=== PATIENT | female | born 1965 | race Caucasian/White ===

== ENCOUNTER → 2022-03-30 | Outpatient (CLI) | payer BC, SELFPAY ==
[2022-03-30 15:00] LABS: Erythrocyte Sedimentation Rate 20 mm/hr (0-30)
--- NOTE | 2022-03-30 15:00 | RAD_ITS ---
INDICATION: ORGAN INVOLVEMENT RHEUMATOID ARTHRITIS EXAMINATION/TECHNIQUE: X-RAY - XR Chest 2 Views COMPARISON: None. FINDINGS: LINES/DEVICES: None. LUNGS: No consolidation, edema or effusion. No pneumothorax. MEDIASTINUM AND CARDIOVASCULAR STRUCTURES: Cardiac silhouette not enlarged. Central airways and mediastinal contour are unremarkable. BONES AND SOFT TISSUES: Unremarkable. RAD/Chest PA and Lateral IMPRESSION: No radiographic evidence of acute cardiopulmonary disease. Electronically Signed: Maxim Diaz DO at 23:52 EST Reading Location ID and State: [facility] / [place] Tel [phone], Service support ,
[2022-03-30 15:02] LABS: Absolute Lymphocyte Count 2.79 X10^3/uL (0.83-4.51); Absolute Neutrophil Count 6.2 X10^3/uL (2.0-7.7); Basophil# 0.07 X10^3/uL; Basophil% 0.7 % (0-1); Eosinophil# 0.08 X10^3/uL; Eosinophils% 0.8 % (0-5); Lymphocyte # 2.79 X10^3/ul (0.83-4.51); Lymphocyte % 28.4 % (19-41); Mean Corp Hgb Conc 33.3 g/dL (32-36); Mean Corpuscular Hgb 30.5 pg (27.0-32.0); Mean Corpuscular Volume 91.6 fL (81-99); Mean Platelet Vol. 10.7 fl (6.2-12.0); Monocyte# 0.65 X10^3/uL; Monocyte% 6.6 % (0-10); NRBC Flagged by Analyzer 0 % (0-5); Neutrophil # 6.22 X10^3/uL (2.7-7.7); Neutrophil % 63.3 % (47-70); Platelet Count 317 K/mm3 (150-450); RBC Distribution Width CV 11.9 % (11.6-14.6); Red Blood Count 4.91 M/mm3 (4.2-5.4); White Blood Count 9.8 K/mm3 (4.4-11.0)
[2022-03-30 15:23] LABS: AST(SGOT) 22 U/L (15-37); Alanine Aminotransfer ALT/SGPT 29 U/L (13-56); Albumin, Serum 3.8 g/dL (3.2-5.0); Alkaline Phosphatase 105 U/L (45-117); Anion Gap 7 (5-15); BUN 9 mg/dL (7-18); BUN/Creat Ratio 9.6 RATIO (10-20); CRP < 2.90 mg/L (0.0-3.0); Chloride 109 mmol/L (98-107); Creatinine, Serum 0.94 mg/dL (0.55-1.02); EST Glomerular Filtration Rate 66 mL/min (>60); Est Glom Filt Rate - Afr Amer 80 mL/min (>60); Globulin 3.9 g/dL (2.2-4.2); Glucose 124 mg/dL (74-106); Potassium 4.2 mmol/L (3.5-5.1); Protein, Total 7.7 g/dL (6.4-8.2); Sodium Level 143 mmol/L (136-145)
[2022-03-30 15:35] LABS: Prothrombin Time (Protime)PT. 12.9 SECONDS (11.7-14.9)
[2022-03-30 15:36] LABS: Partial Thromboplast Time 26.8 Seconds (24.1-36.2)
[2022-03-30 15:45] LABS: Protein, Urine (Random) 7.8 mg/dL (<11.9); Protein:Creat Ratio 84 mg/g CRE (0-200)
[2022-03-30 15:51] LABS: Glucose, Dipstick Normal (Normal); Ketone-Dipstick Negative (Negative); Leukocyte Esterase-Dipstick 25 /ul (Negative); Nitrite-Dipstick Negative (Negative); Occult Blood-Urine 10 /ul (Negative); Protein-Dipstick Negative (Negative); Specific Gravity, Urine 1.015 (1.002-1.030); Urine Bilirubin Dipstick Negative (Negative); Urine Urobilinogen Normal (Normal)
[2022-03-30 15:53] LABS: Color, Urine Yellow (Yellow); Urine Clarity Clear (Clear)
[2022-03-30 16:38] LABS: Hepatitis B Surface Antibody Reactive; Hepatitis B Surface Antigen Non-Reactive (Nonreactive); Hepatitis C Antibody Non-Reactive (Nonreactive)
[2022-04-01 19:07] LABS: Dilute Prothrombin Time (dPT) 35.5 sec (0.0-47.6); Dilute Russell Viper Venom 40.4 sec (0.0-47.0); Hexagonal Phase Phospholipid 4 sec (0-11); QNTFERON TB Mitogen Value > 10.00 IU/mL (.); QNTFERON TB Nil Value 0.04 IU/mL (.); QNTFERON TB1+ Ag Value 0.06 IU/mL (.); QNTFERON TB2+ Ag Value 0.06 IU/mL (.); dPT Confirm Ratio 1.01 Ratio (0.00-1.34)
[2022-04-01 19:21] LABS: Interpretation Comment: (.); PTT-LA 31.2 sec (0.0-43.5); QNTIFERON TB Positive Criteria Negative (Negative)
== END | disposition home or self-care (01) ==
PROVIDERS: PCP Student in an Organized Health Care Education/Training Program; Referring Provider Internal Medicine Rheumatology; Visit Provider Internal Medicine Rheumatology
DX: M05.79 Rheumatoid arthritis with rheumatoid factor of multiple sites without organ or systems involvement (principal); R76.8 Other specified abnormal immunological findings in serum
CPT/HCPCS: 36415; 71046; 80053; 81002; 82570; 84156; 85025; 85598; 85610; 85652; 85730; 86140; 86480; 86706; 86803; 87340

== ENCOUNTER → 2022-08-04 | Outpatient (CLI) | payer BC, SELFPAY ==
[2022-08-04 17:10] LABS: Absolute Lymphocyte Count 2.08 X10^3/uL (0.83-4.51); Absolute Neutrophil Count 5.9 X10^3/uL (2.0-7.7); Basophil# 0.08 X10^3/uL; Basophil% 0.9 % (0-1); Eosinophil# 0.11 X10^3/uL; Eosinophils% 1.3 % (0-5); Hematocrit 45.2 % (37-47); Hemoglobin 14.9 g/dL (12.0-15.0); Lymphocyte # 2.08 X10^3/ul (0.83-4.51); Lymphocyte % 23.6 % (19-41); Mean Corpuscular Hgb 31.7 pg (27.0-32.0); Mean Corpuscular Volume 96.2 fL (81-99); Mean Platelet Vol. 10.4 fl (6.2-12.0); Monocyte# 0.64 X10^3/uL; Monocyte% 7.3 % (0-10); NRBC Flagged by Analyzer 0 % (0-5); Neutrophil # 5.88 X10^3/uL (2.7-7.7); Neutrophil % 66.8 % (47-70); Platelet Count 471 K/mm3 (150-450); RBC Distribution Width CV 13.6 % (11.6-14.6); White Blood Count 8.8 K/mm3 (4.4-11.0)
[2022-08-04 17:43] LABS: ALB/GLOB Ratio 0.8 RATIO (0.9-2.4); AST(SGOT) 29 U/L (15-37); Alanine Aminotransfer ALT/SGPT 31 U/L (13-56); Albumin, Serum 3.4 g/dL (3.2-5.0); Alkaline Phosphatase 118 U/L (45-117); Anion Gap 6 (5-15); BUN 6 mg/dL (7-18); BUN/Creat Ratio 7.5 RATIO (10-20); Calcium,Total 9.4 mg/dL (8.5-10.1); Chloride 110 mmol/L (98-107); Cholesterol 134 mg/dL (200); EST Glomerular Filtration Rate 79 mL/min (>60); Est Glom Filt Rate - Afr Amer 96 mL/min (>60); Globulin 4.1 g/dL (2.2-4.2); Glucose 92 mg/dL (74-106); High Density Lipoprotein 48 mg/dL; Potassium 3.6 mmol/L (3.5-5.1); Protein, Total 7.5 g/dL (6.4-8.2); Sodium Level 143 mmol/L (136-145); Triglycerides 183 mg/dL; Very Low Density Lipoprotein 37 mg/dL (5-40)
[2022-08-04 17:48] LABS: Vitamin D,25 Hydroxy 41.9 ng/mL
== END | disposition home or self-care (01) ==
LOC: LAB 15:47
PROVIDERS: PCP Family Medicine Geriatric Medicine; Referring Provider Family Medicine Geriatric Medicine; Visit Provider Family Medicine Geriatric Medicine
DX: E78.5 Hyperlipidemia, unspecified (principal); M06.9 Rheumatoid arthritis, unspecified
CPT/HCPCS: 36415; 80053; 80061; 82306; 84443; 85025

== ENCOUNTER 2022-08-12 15:50 | Observation (INO) | payer BC, SELFPAY ==
--- NOTE | 2022-08-12 15:49 | CT_ITS ---
STUDY: CT ABDOMEN AND PELVIS WITHOUT CONTRAST REASON FOR EXAM: Female, 57 years old. NAUSEA/VOMITING. URETER STENT PLACED 07/25/22 RADIATION DOSAGE (If Supplied By Facility): CTDIvol = ( 8.06 ) mGy, DLP = ( 396.84 ) mGycm TECHNIQUE: Transaxial images were obtained from the dome of the diaphragm to the symphysis pubis without oral contrast, and without intravenous contrast. Sagittal and coronal images were reconstructed. Individualized dose optimization techniques were used for this CT. COMPARISON: None. FINDINGS: The visualized lung bases are unremarkable. The visualized portions of the heart are within normal limits. There is decreased attenuation of the liver consistent with steatosis. Marked hepatomegaly. Normal gallbladder and extrahepatic biliary system. Normal spleen. Normal pancreas. Normal bilateral adrenal glands. Normal right kidney. Left kidney has a ureteral stent in the left renal pelvis extending down to the bladder, satisfactory positioning. No definite stones are seen along the course of the stent. Currently there are nonobstructing stones in the left lower pole measuring as much as 9 mm. No hydronephrosis. Normal visualized stomach. Normal small intestine. Normal colon. The appendix is visualized and appears normal. Normal abdominal aorta. Normal inferior vena cava. Normal retroperitoneum. Normal urinary bladder. There is absence of the uterus consistent with a prior hysterectomy. Normal abdominal wall. Normal osseous structures. CT/Abdomen/Pelvis without Cont IMPRESSION: Satisfactory positioning of left ureteral stent. No hydronephrosis. Currently nonobstructing stones are seen in the lower pole left kidney. Fatty liver with marked hepatomegaly. Electronically Signed: Adebayo Roblero MD at 16:48 EDT ,
[2022-08-12 16:22] VITALS: BMI 28.8
[2022-08-12 16:30] VITALS: BP 146/80; PULSE 97; RESP 18; TEMP 37.6; O2SAT 98
[2022-08-12] MEDS: Lactated Ringers 1,000 ML 125 ML IV (16:52)
[2022-08-12] MEDS: 0.9% Saline Lock 10 ML Syringe IV ×2 (16:52→16:56)
[2022-08-12] MEDS: Ondansetron 4 MG/2 ML Vial IV (16:56)
[2022-08-12] MEDS: oxyCODONE 5 MG Tablet 10 MG PO ×2 (16:56→22:21)
--- NOTE | 2022-08-12 17:38 | EKG12_ITS ---
Test Reason : Blood Pressure : / mmHG Vent. Rate : 088 BPM Atrial Rate : 088 BPM P-R Int : 134 ms QRS Dur : 076 ms QT Int : 344 ms P-R-T Axes : 058 091 054 degrees QTc Int : 416 ms Normal sinus rhythm Low voltage QRS Borderline ECG No previous ECGs available Confirmed by JALYN HAWLEY, MELISSA ([id number]), editor & co founder BRONWYN NAVARRO ([id number]) on 08/17/2022 11:48:28 AM Referred By: Fritz Virgen Confirmed By:LISBETH GUNDERSON MD
[2022-08-12 18:01] LABS: Absolute Lymphocyte Count 1.27 X10^3/uL (0.83-4.51); Absolute Neutrophil Count 13.9 X10^3/uL (2.0-7.7); Basophil# 0.03 X10^3/uL; Basophil% 0.2 % (0-1); Eosinophil# 0.02 X10^3/uL; Eosinophils% 0.1 % (0-5); Hematocrit 36.7 % (37-47); Lymphocyte # 1.27 X10^3/ul (0.83-4.51); Lymphocyte % 7.7 % (19-41); Mean Corp Hgb Conc 32.7 g/dL (32-36); Mean Corpuscular Volume 94.8 fL (81-99); Mean Platelet Vol. 10.5 fl (6.2-12.0); Monocyte# 1.06 X10^3/uL; Monocyte% 6.4 % (0-10); NRBC Flagged by Analyzer 0 % (0-5); Neutrophil # 13.87 X10^3/uL (2.7-7.7); Neutrophil % 83.6 % (47-70); Platelet Count 340 K/mm3 (150-450); RBC Distribution Width CV 13.7 % (11.6-14.6); RBC Distribution Width SD 46.7 fl (35.1-43.9); Red Blood Count 3.87 M/mm3 (4.2-5.4); White Blood Count 16.6 K/mm3 (4.4-11.0)
[2022-08-12 18:17] LABS: Anion Gap 6 (5-15); BUN 10 mg/dL (7-18); BUN/Creat Ratio 10.2 RATIO (10-20); Calcium,Total 9.3 mg/dL (8.5-10.1); Chloride 108 mmol/L (98-107); Creatinine, Serum 0.98 mg/dL (0.55-1.02); EST Glomerular Filtration Rate 63 mL/min (>60); Est Glom Filt Rate - Afr Amer 76 mL/min (>60); Glucose 156 mg/dL (74-106); Potassium 3.1 mmol/L (3.5-5.1); Sodium Level 136 mmol/L (136-145)
[2022-08-12 20:58] VITALS: BP 103/75; PULSE 72; RESP 16; TEMP 37.2; O2SAT 96
[2022-08-13] MEDS: Lactated Ringers 1,000 ML 125 ML IV ×3 (00:49→13:46)
[2022-08-13 02:00] VITALS: BP 109/52; PULSE 78; RESP 16; TEMP 36.9; O2SAT 96
[2022-08-13] MEDS: oxyCODONE 5 MG Tablet 10 MG PO ×4 (06:12→20:04)
[2022-08-13] MEDS: Ondansetron 4 MG/2 ML Vial IV ×2 (06:14→20:04)
[2022-08-13 07:49] VITALS: O2SAT 95
[2022-08-13 08:23] VITALS: BP 135/80; PULSE 80; RESP 18; TEMP 36.7; O2SAT 95
--- NOTE | 2022-08-13 10:27 | HP.PCM_ITS ---
HPI - General General Date of Admission: 08/12/22 Date of Service: 08/13/22 Chief Complaint: flank pain, nausea, vomiting, left stone HPI Narrative DANIEL RITCHIE, is a 57 F who presents after being seen in my office yesterday with uncontrolled flank pain, nausea, vomiting. Her pain was so significant she was crying and unable to sit. She was vomiting in the office. She was admitted for IV fluids, pain control and antiemetics. Overnight she has remained stable. She is feeling better this morning and is just now starting to be able to eat. [facility] Medical History (Updated 08/13/22 @ 10:[address] Diane Ovalle MD) Left renal stone Home Medications folic acid 1 mg tablet 1 mg PO BID 08/12/22 [History Last Taken 08/11/22] methotrexate sodium 2.5 mg tablet 15 mg PO .MON 08/12/22 [History Last Taken 08/08/22] Allergy/AdvReac Type Severity Reaction Status Date / Time ketorolac [From Toradol] Allergy Severe FACE AND Verified 08/12/22 16:43 THROAT SWELLING erythromycin base Allergy Intermediate Abd Verified 08/12/22 16:43 [From E-Mycin] cramps/diarrhea Social History Smoking Status: Current every day smoker tobacco type: cigarettes ROS Constitutional Constitutional: Reports anorexia; Denies chills or fever(s) Eyes Eyes: Reports systems reviewed and no addt'l complaints, except as documented ENT HEENT: Reports systems reviewed and no addt'l complaints, except as documented Cardiovascular Cardiovascular: Reports abdominal pain; Denies chest pain or dyspnea Respiratory/Chest Respiratory/Chest: Denies chest congestion, cough, difficulty clearing secretions or dyspnea Gastrointestinal Gastrointestinal: Reports abdominal pain, nausea and vomiting Genitourinary Genitourinary: Reports abdominal discomfort, flank pain, low back pain and urinary urgency; Denies burning urination or hematuria Musculoskeletal Musculoskeletal: Reports back pain Integumentary Integumentary: Reports systems reviewed and no addt'l complaints, except as documented Neurologic Neurologic: Reports systems reviewed and no addt'l complaints, except as documented Psychiatric Psychiatric: Reports systems reviewed and no addt'l complaints, except as documented Endocrine Endocrinology: Reports systems reviewed and no addt'l complaints, except as documented Hematologic/Lymphatic Hematologic/Lymphatic: Reports systems reviewed and no addt'l complaints, except as documented Allergic/Immunologic Allergic/Immunologic: Reports systems reviewed and no addt'l complaints, except as documented Vital Signs Vital Signs Vital Signs: 08/12/22 16:30 08/12/22 20:58 08/12/22 20:59 Temperature 99.7 F H 98.9 F Temperature Source Oral Oral Pulse Rate 97 72 Pulse Strength Respiratory Rate 18 16 Respiratory Effort Normal Non-Labored Respiratory Depth Normal Respiratory Pattern Normal Blood Pressure 146/80 H 103/75 Blood Pressure Mean 102 84 Blood Pressure Source Monitor Blood Pressure Position Semi-Fowlers Blood Pressure Location Left Arm Pulse Ox 98 96 Oxygen Delivery Method Room Air Room Air Room Air 08/13/22 02:00 08/13/22 08:15 08/13/22 08:23 Temperature 98.5 F 98.0 F Temperature Source Temporal Temporal Pulse Rate 78 80 Pulse Strength Normal (2+) Respiratory Rate 16 18 Respiratory Effort Respiratory Depth Respiratory Pattern Blood Pressure 109/52 L 135/80 H Blood Pressure Mean 71 98 Blood Pressure Source Monitor Blood Pressure Position Semi-Fowlers Blood Pressure Location Left Arm Pulse Ox 96 95 Oxygen Delivery Method Room Air Room Air 08/13/22 07:49 Temperature Temperature Source Pulse Rate Pulse Strength Respiratory Rate Respiratory Effort Respiratory Depth Respiratory Pattern Blood Pressure Blood Pressure Mean Blood Pressure Source Blood Pressure Position Blood Pressure Location Pulse Ox 95 Oxygen Delivery Method Room Air Weight Weight: 71.412 kg Body Mass Index (BMI) 28.8 Physical Exam Const alert, oriented x3 and no apparent distress Constitutional Narrative: She is in no distress this morning, much more comfortable than yesterday General Appearance: cooperative and comfortable HEENT normocephalic, head/scalp atraumatic, external ears normal and external nose normal Eyes General Eye: normal appearance of both eyes Neck supple General: trachea midline Lymph Lymphatic: no lymphadenopathy noted Chest inspection of chest normal Resp normal respiratory effort, normal air movement and no retractions Cardio regular rate GI soft to palpation, non-tender and non-distended Bladder / Kidney Exam: CVA tenderness left Back/Spine General Back: CVA tenderness left Extremity normal to inspection Skin no rashes or lesions noted Neuro oriented x3, CN's II-XII intact bilaterally and moves all extremities Psych mental status grossly normal Results Lab / Micro Data 08/12/22 17:43 08/12/22 17:43 Labs: Laboratory Results - last 24 hr 08/12/22 17:43: WBC 16.6 H, RBC 3.87 L, Hgb 12.0, Hct 36.7 L, MCV 94.8, MCH 31.0, MCHC 32.7, RDW Std Deviation 46.7 H, RDW Coeff of Jodi 13.7, Plt Count 340, MPV 10.5, Immature Gran % (Auto) 2.000 H, Neut % (Auto) 83.6 H, Lymph % (Auto) 7.7 L, [place] % (Auto) 6.4, Eos % (Auto) 0.1, Baso % (Auto) 0.2, Absolute Neuts (auto) 13.9 H, Absolute Lymphs (auto) 1.27, Nucleated RBC % 0, Sodium 136, Potassium 3.1 L, Chloride 108 H, Carbon Dioxide 22.0, Anion Gap 6, BUN 10, Creatinine 0.98, Estim Creat Clear Calc 51.30, Est GFR (MDRD) Af Amer 76, Est GFR (MDRD) Non-Af 63, BUN/Creatinine Ratio 10.2, Glucose 156 H, Calcium 9.3 Radiology Impression Abdomen/Pelvis CT 08/12/22 15:49 IMPRESSION: Satisfactory positioning of left ureteral stent. No hydronephrosis. Currently nonobstructing stones are seen in the lower pole left kidney. Fatty liver with marked hepatomegaly. Electronically Signed: Adebayo Roblero MD at 16:48 EDT , Assessment & Plan Assessment/Plan (1) Left renal stone: (2) Nausea and vomiting: (3) Flank pain: PLAN: Plan Continue intravenous supportive care until she proves that she is able to tolerate oral intake With elevated white count, add antibiotics today she was previously on Macrobid yesterday, urine culture was sent from the office yesterday Plan is to recheck blood work in the morning, and discharged home if normal and she is able to take in oral fluids appropriately with controlled pain
--- NOTE | 2022-08-13 12:15 | CASEMGMT ---
RN CM: Met face to face at bedside. Pt ambulating in room independently and denies any discharge needs at this time. Brandi Abrams RN CM
--- NOTE | 2022-08-13 13:32 | NURSING ---
awaiting 1400 cefazloin dose to come
[2022-08-13] MEDS: Cefazolin 1 GM/50 ML BAG IV ×2 (13:45→21:48)
[2022-08-13 14:00] VITALS: BP 125/74; PULSE 69; RESP 18; TEMP 36.7; O2SAT 99
[2022-08-13] MEDS: 0.9% Saline Lock 10 ML Syringe IV (20:04)
[2022-08-13 20:14] VITALS: BP 139/90; PULSE 75; RESP 16; TEMP 37.1; O2SAT 97
[2022-08-14] MEDS: oxyCODONE 5 MG Tablet 10 MG PO ×2 (00:44→06:22)
[2022-08-14] MEDS: Lactated Ringers 1,000 ML 125 ML IV (00:45)
[2022-08-14 02:21] VITALS: BP 105/80; PULSE 83; RESP 16; TEMP 36.5; O2SAT 95
[2022-08-14] MEDS: Cefazolin 1 GM/50 ML BAG IV (06:15)
[2022-08-14 07:06] LABS: Absolute Lymphocyte Count 1.69 X10^3/uL (0.83-4.51); Absolute Neutrophil Count 5.7 X10^3/uL (2.0-7.7); Basophil# 0.02 X10^3/uL; Basophil% 0.2 % (0-1); Eosinophils% 1.1 % (0-5); Hematocrit 31.1 % (37-47); Hemoglobin 10.4 g/dL (12.0-15.0); Lymphocyte # 1.69 X10^3/ul (0.83-4.51); Lymphocyte % 18.9 % (19-41); Mean Corp Hgb Conc 33.4 g/dL (32-36); Mean Corpuscular Hgb 31.8 pg (27.0-32.0); Mean Corpuscular Volume 95.1 fL (81-99); Mean Platelet Vol. 10.4 fl (6.2-12.0); Monocyte# 1.41 X10^3/uL; Monocyte% 15.8 % (0-10); NRBC Flagged by Analyzer 0 % (0-5); Neutrophil # 5.66 X10^3/uL (2.7-7.7); Neutrophil % 63.6 % (47-70); Platelet Count 258 K/mm3 (150-450); RBC Distribution Width CV 13.7 % (11.6-14.6); RBC Distribution Width SD 47.3 fl (35.1-43.9); Red Blood Count 3.27 M/mm3 (4.2-5.4); White Blood Count 8.9 K/mm3 (4.4-11.0)
--- NOTE | 2022-08-14 07:34 | DCINST_ITS ---
Discharge Instructions Diet Discharge Diet: No restrictions Activity Discharge Activity: Return to Normal Activity and [address] (when not taking narcotics) Dressing / Incision Call your doctor if you observe: Fever of 101 or Higher, Inability to urinate and Inability to have a bowel movement Follow Up Care Please Follow Up With: Diane Ovalle MD When: The office will call to make arrangements for next steps Test Results: Test results from this visit will be discussed in further detail at your follow- up appointment, if applicable. Discharge Plan Admission Admit Date/Time: 08/12/22 15:50 Attending Provider: Diane Ovalle Primary Care Provider: Fritz Virgen Chi Discharge Orders/Prescriptions Prescriptions: New ondansetron HCl [ondansetron HCl] 8 mg tablet 8 mg PO Q8H PRN PRN (Reason: Nausea) 7 Days Qty: 20 0RF oxycodone-acetaminophen [oxycodone-acetaminophen] 5-325 mg tablet 2 tab PO Q8H PRN PRN (Reason: Pain) 7 Days Qty: 20 0RF cephalexin [cephalexin] 500 mg capsule 500 mg PO 3XD 4 Days Qty: 12 0RF phenazopyridine [Pyridium] 200 mg tablet 200 mg PO TID PRN PRN (Reason: Bladder Spasms) 7 Days Qty: 30 0RF Continued methotrexate sodium 2.5 mg tablet 15 mg PO .MON Patient Comments: TAKE SIX TABLETS BY MOUTH ONCE a WEEK folic acid 1 mg tablet 1 mg PO BID Patient Comments: TAKE TWO TABLETS BY MOUTH EVERY DAY Referrals / Follow Up: Fritz Virgen Chi, MD [Primary Care Provider] - Disposition Disposition (needs filled in before D/C Order can be placed): Home, Self Care
[2022-08-14 07:52] VITALS: O2SAT 95
[2022-08-14 08:06] VITALS: BP 120/73; PULSE 73; RESP 18; TEMP 37.1; O2SAT 96
[2022-08-14 08:08] VITALS: RESP 18
[2022-08-14] MEDS: Polyethylene Glycol 3350 17 GM PACKET 34 GM PO (08:24)
[2022-08-14] MEDS: Bisacodyl 5 MG Tablet 10 MG PO (08:24)
[2022-08-14] MEDS: Potassium Chloride Oral Tablet 20 MEQ 40 MEQ PO (08:24)
[2022-08-14] MEDS: Folic Acid 1 MG Tablet PO (08:25)
[2022-08-14 11:30] VITALS: BP 140/83; PULSE 72; RESP 18; TEMP 36.1; O2SAT 98
== END 2022-08-14 12:20 | disposition home or self-care (01) ==
PROVIDERS: Admitting Provider Urology; PCP Family Medicine Geriatric Medicine; Visit Provider Urology
DX: N20.0 Calculus of kidney (principal); F17.210 Nicotine dependence, cigarettes, uncomplicated
CPT/HCPCS: 36415; 74176; 80048; 85025; 93005; 96361; 96365; 96366; 96375; 96376; 99221; J7120; A4216; G0378; G0379; J2405

== ENCOUNTER 2022-08-25 08:24 | Day surgery (SDC) | payer BC, SELFPAY ==
[2022-08-25 09:03] VITALS: BP 114/69; PULSE 60; RESP 16; TEMP 36.3; O2SAT 97; BMI 27.3
[2022-08-25] MEDS: Lactated Ringers 1,000 ML 15 ML IV (09:07)
[2022-08-25] MEDS: Cefazolin 2 GM in 0.9% Normal Saline 100 ML IV (11:34)
[2022-08-25 12:33] VITALS: BP 114/69; BP 131/85; PULSE 69; RESP 16; TEMP 36.8; O2SAT 98
[2022-08-25 12:45] VITALS: BP 114/69; BP 147/81; PULSE 58; RESP 16; O2SAT 94
--- NOTE | 2022-08-25 12:51 | DCINST_ITS ---
Discharge Instructions Diet Discharge Diet: No restrictions Activity Discharge Activity: Return to Normal Activity Dressing / Incision Call your doctor if you observe: Fever of 101 or Higher, Inability to urinate and Inability to have a bowel movement Follow Up Care Please Follow Up With: Diane Ovalle MD When: the office will call to set up follow up. Test Results: Test results from this visit will be discussed in further detail at your follow- up appointment, if applicable. Discharge Plan Admission Attending Provider: Diane Ovalle Primary Care Provider: Fritz Virgen Chi Discharge Orders/Prescriptions Prescriptions: New oxycodone-acetaminophen [Percocet] 5-325 mg tablet 1 tab PO Q8H PRN (Reason: pain) 3 Days Qty: 10 0RF Continued ciprofloxacin HCl [Cipro] 500 mg tablet 500 mg PO BID tramadol 50 mg tablet 50 mg PO Q8H PRN (Reason: pain) Referrals / Follow Up: Fritz Virgen Chi, MD [Primary Care Provider] - Disposition Disposition (needs filled in before D/C Order can be placed): Home, Self Care
--- NOTE | 2022-08-25 12:53 | PCM.OPRPT ---
Report of Operation Date of Procedure: 08/25/22 Pre-Operative Diagnosis: Left renal stone Post-Operative Diagnosis: Same Surgery/Procedure Performed:: Left extracorporal shockwave lithotripsy Surgeon: Diane Ovalle Type of Anesthesia: General Description of Procedure: The patient is a 57-year-old female with a left renal calculus and already a left indwelling ureteral stent. She now presents for definitive surgical intervention for her stone. Informed consent was obtained. The patient was taken to the operating room and placed on the operating room table. Anesthesia monitored the head, neck, airway, IV access and vital signs throughout the case. Once anesthesia was appropriately administered, the patient was aligned with the lithotripter. The stone was easily visualized. 3000 shocks were applied to the stone without complication. The stone appeared to be well fragmented and was not actually visible at the conclusion of the case. The patient was then awakened and taken to the recovery room in good condition. There were no complications during this procedure. Complications None Admit VTE Documentation VTE Present on Admission: Yes VTE Mechan Device Prophylaxis: SCD's VTE Pharm Prophylaxis ordered?: No Reason prophylaxis not ordered:: Treatment Not Indicated
[2022-08-25 13:00] VITALS: BP 114/69; BP 142/81; PULSE 56; RESP 16; O2SAT 95
[2022-08-25 13:13] VITALS: BP 114/69; BP 156/79; PULSE 58; RESP 16; TEMP 36.9; O2SAT 99
[2022-08-25 13:35] VITALS: BP 114/69
== END 2022-08-25 13:51 | disposition home or self-care (01) ==
LOC: SDC 08:25 → AC 08:46
PROVIDERS: PCP Family Medicine Geriatric Medicine; Referring Provider Urology; Visit Provider Urology
PROC: (CPT 50590; principal; 2022-08-25 10:05)
DX: N20.0 Calculus of kidney (principal); M06.9 Rheumatoid arthritis, unspecified; F17.210 Nicotine dependence, cigarettes, uncomplicated
CPT/HCPCS: 50590; 00873; J7120; J2405

== ENCOUNTER → 2022-09-08 | Outpatient (CLI) | payer BC, SELFPAY ==
--- NOTE | 2022-09-08 17:36 | CT_ITS ---
INDICATION: SMOKER EXAMINATION: - CT Low Dose CT Chest for Lung Cancer Screening A radiation dose optimization technique was used for this scan. COMPARISON: None. FINDINGS: Low dose Noncontrast serial CT axial images through the chest with coronal and sagittal reformatted series. MEDIASTINUM: No coronary artery atherosclerotic calcifications. Noncontrast mediastinum is otherwise unremarkable. LUNG PARENCHYMA: No acute pulmonary parenchymal abnormality. Posterior left upper lobe 3 mm pulmonary nodule on image 42 of series 2. Few additional tiny scattered 2 mm pulmonary nodules. PLEURA: No pleural effusion. No pneumothorax. BONES: Osseous structures are unremarkable for age. UPPER ABDOMEN: Unremarkable. CT/Low Dose CT Lung Screening IMPRESSION: Lung-RADS CATEGORY 2: Benign Appearance Nodules. Annual screening with low dose CT in 12 months. Electronically Signed: Chong Yeboah MD at 2:48 EDT ,
== END | disposition home or self-care (01) ==
LOC: CT 17:31
PROVIDERS: PCP Family Medicine Geriatric Medicine; Referring Provider Family Medicine Geriatric Medicine; Visit Provider Family Medicine Geriatric Medicine
DX: F17.210 Nicotine dependence, cigarettes, uncomplicated (principal)
CPT/HCPCS: 71271

== ENCOUNTER → 2022-09-09 | Outpatient (CLI) | payer BC, SELFPAY ==
--- NOTE | 2022-09-09 14:05 | RAD_ITS ---
STUDY: X-RAY - ABDOMEN/PELVIS REASON FOR EXAM: Female, 57 years old. STONE IN KIDNEY TECHNIQUE: Single AP view of the abdomen / pelvis. COMPARISON: None. FINDINGS: Normal visualized lung bases. There is an unremarkable bowel gas pattern. The visualized liver, spleen and kidneys are grossly normal in size and morphology. Left ureteral stent. No definite ureteral stone. Normal visualized osseous structures. RAD/Abdomen Single View IMPRESSION: Left ureteral stent. No definite ureteral stone. Electronically Signed: Piyush Harper MD at 22:21 EDT ,
== END | disposition home or self-care (01) ==
LOC: MTRAD 14:04
PROVIDERS: PCP Family Medicine Geriatric Medicine; Referring Provider Urology; Visit Provider Urology
DX: N20.0 Calculus of kidney (principal)
CPT/HCPCS: 74018

== ENCOUNTER → 2022-11-09 | Outpatient (CLI) | payer BC, SELFPAY ==
[2022-11-09 18:14] LABS: Alanine Aminotransfer ALT/SGPT 28 U/L (13-56); Bilirubin, Direct 0.09 mg/dL (0.00-0.30); Globulin 7.6 g/dL (2.2-4.2)
[2022-11-09 18:42] LABS: AST(SGOT) 19 U/L (15-37); Albumin, Serum 3.6 g/dL (3.2-5.0); Alkaline Phosphatase 84 U/L (45-117); Ferritin 40 ng/mL (8-252); GGTP 22 U/L (5-55); Protein, Total 7.9 g/dL (6.4-8.2)
[2022-11-11 12:09] LABS: ANTINUCLEAR ANTIBODIES DIRECT Positive (Negative); Alpha Antitrypsin Serum 126 mg/dL (101-187)
[2022-11-11 16:09] LABS: Anti-Smooth Muscle ABS 15 Units (0-19)
== END | disposition home or self-care (01) ==
LOC: MTLAB 14:56
PROVIDERS: PCP Family Medicine Geriatric Medicine; Referring Provider Internal Medicine Gastroenterology; Visit Provider Internal Medicine Gastroenterology
DX: R79.89 Other specified abnormal findings of blood chemistry (principal)
CPT/HCPCS: 36415; 80076; 82103; 82728; 82977; 83516; 86038

== ENCOUNTER → 2023-01-06 | Outpatient (CLI) | payer BC, SELFPAY ==
[2023-01-06 14:41] LABS: Absolute Neutrophil Count 9.2 X10^3/uL (2.0-7.7); Basophil# 0.07 X10^3/uL; Basophil% 0.6 % (0-1); Eosinophil# 0.03 X10^3/uL; Eosinophils% 0.3 % (0-5); Hematocrit 47.9 % (37-47); Hemoglobin 15.3 g/dL (12.0-15.0); Lymphocyte % 15.6 % (19-41); Mean Corp Hgb Conc 31.9 g/dL (32-36); Mean Corpuscular Hgb 29.4 pg (27.0-32.0); Mean Corpuscular Volume 92.1 fL (81-99); Mean Platelet Vol. 11.3 fl (6.2-12.0); Monocyte# 0.42 X10^3/uL; Monocyte% 3.6 % (0-10); NRBC Flagged by Analyzer 0 % (0-5); Neutrophil # 9.21 X10^3/uL (2.7-7.7); Neutrophil % 79.6 % (47-70); Platelet Count 285 K/mm3 (150-450); RBC Distribution Width CV 12.7 % (11.6-14.6); RBC Distribution Width SD 43.1 fl (35.1-43.9); White Blood Count 11.6 K/mm3 (4.4-11.0)
[2023-01-06 15:30] LABS: ALB/GLOB Ratio 0.7 RATIO (0.9-2.4); AST(SGOT) 32 U/L (15-37); Alanine Aminotransfer ALT/SGPT 68 U/L (13-56); Albumin, Serum 3.4 g/dL (3.2-5.0); Alkaline Phosphatase 85 U/L (45-117); Anion Gap 6 (5-15); BUN 15 mg/dL (7-18); BUN/Creat Ratio 16.6 RATIO (10-20); Calcium,Total 9.3 mg/dL (8.5-10.1); Chloride 109 mmol/L (98-107); Creatinine, Serum 0.91 mg/dL (0.55-1.02); EST Glomerular Filtration Rate 68 mL/min (>60); Est Glom Filt Rate - Afr Amer 83 mL/min (>60); Globulin 4.7 g/dL (2.2-4.2); Glucose 99 mg/dL (74-106); Potassium 3.9 mmol/L (3.5-5.1); Protein, Total 8.1 g/dL (6.4-8.2); Sodium Level 136 mmol/L (136-145)
== END | disposition home or self-care (01) ==
LOC: MTLAB 12:42
PROVIDERS: PCP Family Medicine Geriatric Medicine; Referring Provider Internal Medicine Rheumatology; Visit Provider Internal Medicine Rheumatology
DX: M05.79 Rheumatoid arthritis with rheumatoid factor of multiple sites without organ or systems involvement (principal); M79.7 Fibromyalgia; Z79.899 Other long term (current) drug therapy
CPT/HCPCS: 36415; 80053; 85025

== ENCOUNTER → 2023-01-27 | Outpatient (CLI) | payer BC, SELFPAY ==
[2023-01-27 10:54] LABS: Absolute Neutrophil Count 10.4 X10^3/uL (2.0-7.7); Basophil# 0.06 X10^3/uL; Basophil% 0.5 % (0-1); Eosinophil# 0.07 X10^3/uL; Eosinophils% 0.5 % (0-5); Hematocrit 47.5 % (37-47); Hemoglobin 15.4 g/dL (12.0-15.0); Lymphocyte % 15.3 % (19-41); Mean Corp Hgb Conc 32.4 g/dL (32-36); Mean Corpuscular Hgb 29.7 pg (27.0-32.0); Mean Corpuscular Volume 91.5 fL (81-99); Mean Platelet Vol. 9.5 fl (6.2-12.0); Monocyte# 0.52 X10^3/uL; NRBC Flagged by Analyzer 0 % (0-5); Neutrophil # 10.37 X10^3/uL (2.7-7.7); Neutrophil % 79.5 % (47-70); Platelet Count 399 K/mm3 (150-450); RBC Distribution Width CV 12.2 % (11.6-14.6); RBC Distribution Width SD 41.1 fl (35.1-43.9); Red Blood Count 5.19 M/mm3 (4.2-5.4); White Blood Count 13.1 K/mm3 (4.4-11.0)
[2023-01-27 11:15] LABS: ALB/GLOB Ratio 0.8 RATIO (0.9-2.4); AST(SGOT) 40 U/L (15-37); Alanine Aminotransfer ALT/SGPT 70 U/L (13-56); Albumin, Serum 3.7 g/dL (3.2-5.0); Alkaline Phosphatase 76 U/L (45-117); Anion Gap 7 (5-15); BUN 8 mg/dL (7-18); BUN/Creat Ratio 7.9 RATIO (10-20); Calcium,Total 9.5 mg/dL (8.5-10.1); Chloride 106 mmol/L (98-107); Creatinine, Serum 1.01 mg/dL (0.55-1.02); EST Glomerular Filtration Rate 60 mL/min (>60); Est Glom Filt Rate - Afr Amer 73 mL/min (>60); Globulin 4.4 g/dL (2.2-4.2); Glucose 110 mg/dL (74-106); Potassium 4.4 mmol/L (3.5-5.1); Protein, Total 8.1 g/dL (6.4-8.2); Sodium Level 141 mmol/L (136-145); Thyroid Stim Hormone (TSH) 2.98 uIU/mL (0.358-3.74)
== END | disposition home or self-care (01) ==
LOC: POLAB3 10:27
PROVIDERS: PCP Family Medicine Geriatric Medicine; Visit Provider Family Medicine Geriatric Medicine
DX: R53.83 Other fatigue (principal)
CPT/HCPCS: 36415; 80053; 84443; 85025

== ENCOUNTER → 2023-02-11 | Outpatient (CLI) | payer BC, SELFPAY ==
--- OUTSIDE RECORDS SUMMARY | 2023-02-11 08:51 | XMS RPT_ITS | CCD ---
Author Name Unknown Address [id number] [facility] [address] [place] [address] Organization [facility] Care Team Providers Care Log Loader Helper Name Role Phone BERRY BOWER MD Admitting Unavailable BERRY BOWER MD Consulting Unavailable BERRY BOWER MD Attending Unavailable SARAH, DR AMBROCIO Primary Care Unavailable SARAH, DR AMBROCIO Consulting Unavailable BERRY BOWER MD Admitting Unavailable BERRY BOWER MD Consulting Unavailable BERRY BOWER MD Attending Unavailable NONE, NONE Primary Care Unavailable Cristóbal Ibarra MD Primary Care Provider [phone] Cristóbal Ibarra MD Primary Care Provider [phone] MEHUL BURNS JR Attending Unavailable CRISTÓBAL IBARRA Referring Unavailable CRISTÓBAL IBARRA Primary Care Unavailable MEHUL BURNS JR Attending Unavailable MEHUL BURNS JR Referring Unavailable CRISTÓBAL IBARRA Primary Care Unavailable MEHUL BURNS JR Referring Unavailable MEHUL BURNS JR Attending Unavailable CRISTÓBAL IBARRA Primary Care Unavailable CRISTÓBAL IBARRA Primary Care Unavailable MEHUL BURNS JR Referring Unavailable MEHUL BURNS JR Attending Unavailable CRISTÓBAL IBARRA Referring Unavailable CRISTÓBAL IBARRA Primary Care Unavailable MEHUL BURNS JR Attending Unavailable CRISTÓBAL IBARRA Primary Care Unavailable MEHUL BURNS JR Attending Unavailable SELF, SELF Referring Unavailable SELF, SELF Referring Unavailable MEHUL BURNS JR Attending Unavailable CRISTÓBAL IBARRA Primary Care Unavailable MEHUL BURNS JR Attending Unavailable CRISTÓBAL IBARRA Primary Care Unavailable SELF, SELF Referring Unavailable CRISTÓBAL IBARRA Primary Care Unavailable ARCENIOTTCRISTÓBAL Prince Primary Care Unavailable ARCENIOTTCRISTÓBAL Prince Primary Care Unavailable CRISTÓBAL IBARRA Primary Care Unavailable CRISTÓBAL IBARRA Primary Care Unavailable CRISTÓBAL IBARRA Primary Care Unavailable HELENE SOTO Attending Unavailable HELENE SOTO Admitting Unavailable RIK CRAMER MD Consulting Unavailable HELENE SOTO Primary Care Unavailable PROVIDER, UNKNOWN Consulting Unavailable PROVIDER, UNKNOWN Consulting Unavailable CRISTÓBAL IBARRA MD Consulting Unavailable JESUS KEYES Attending Unavailable KEYES, JESUS Admitting Unavailable KEYES, JESUS Primary Care Unavailable PROVIDER, UNKNOWN Consulting Unavailable PROVIDER, UNKNOWN Consulting Unavailable CRISTÓBAL IBARRA MD Consulting Unavailable CRISTÓBAL IBARRA MD Admitting Unavailable CRISTÓBAL IBARRA MD Attending Unavailable CRISTÓBAL IBARRA MD Primary Care Unavailable PROVIDER, UNKNOWN Consulting Unavailable PROVIDER, UNKNOWN Consulting Unavailable MEHUL BURNS Primary Care Unavailable MEHUL BURNS Attending Unavailable CRISTÓBAL IBARRA MD Consulting Unavailable MEHUL BURNS Admitting Unavailable PROVIDER, UNKNOWN Consulting Unavailable PROVIDER, UNKNOWN Consulting Unavailable HELENE SOTO MD Attending Unavailable HELENE SOTO MD Admitting Unavailable RIK CRAMER MD Consulting Unavailable HELENE SOTO MD Primary Care Unavailable PROVIDER, UNKNOWN Consulting Unavailable PROVIDER, UNKNOWN Consulting Unavailable CRISTÓBAL IBARRA MD Primary Care Unavailable CRISTÓBAL IBARRA MD Consulting Unavailable CRISTÓBAL IBARRA MD Admitting Unavailable CRISTÓBAL IBARRA MD Attending Unavailable PROVIDER, UNKNOWN Consulting Unavailable PROVIDER, UNKNOWN Consulting Unavailable CRISTÓBAL IBARRA MD Primary Care Unavailable CRISTÓBAL IBARRA MD Admitting Unavailable CRISTÓBAL IBARRA MD Attending Unavailable CRISTÓBAL IBARRA MD Consulting Unavailable PROVIDER, UNKNOWN Consulting Unavailable PROVIDER, UNKNOWN Consulting Unavailable CRISTÓBAL IBARRA MD Consulting Unavailable MEHUL BURNS Admitting Unavailable MEHUL BURNS Primary Care Unavailable MEHUL BURNS Attending Unavailable PROVIDER, UNKNOWN Consulting Unavailable PROVIDER, UNKNOWN Consulting Unavailable MEHUL BURNS Admitting Unavailable MEHUL BURNS Primary Care Unavailable MEHUL BURNS Attending Unavailable CRISTÓBAL IBARRA MD Consulting Unavailable PROVIDER, UNKNOWN Consulting Unavailable PROVIDER, UNKNOWN Consulting Unavailable CRISTÓBAL IBARRA MD Consulting Unavailable HELENE SOTO MD Admitting Unavailable HELENE SOTO MD Primary Care Unavailable HELENE SOTO MD Attending Unavailable PROVIDER, UNKNOWN Consulting Unavailable PROVIDER, UNKNOWN Consulting Unavailable CRISTÓBAL IBARRA MD Consulting Unavailable MELBA ADAMS DO Attending Unavailable MELBA ADAMS DO Admitting Unavailable MELBA ADMAS DO Primary Care Unavailable CRISTÓBAL IBARRA MD Referring Unavailable PROVIDER, UNKNOWN Consulting Unavailable PROVIDER, UNKNOWN Consulting Unavailable CRISTÓBAL IBARRA MD Consulting Unavailable KVNG LEWIS Primary Care Unavailable KVNG LEWIS Admitting Unavailable KVNG LEWIS Attending Unavailable CRISTÓBAL IBARRA MD Referring Unavailable PROVIDER, UNKNOWN Consulting Unavailable PROVIDER, UNKNOWN Consulting Unavailable HELENE SOTO MD Admitting Unavailable RIK CRAMER MD Consulting Unavailable HELENE SOTO MD Attending Unavailable HELENE SOTO MD Primary Care Unavailable PROVIDER, UNKNOWN Consulting Unavailable PROVIDER, UNKNOWN Consulting Unavailable HELENE SOTO MD Attending Unavailable HELENE SOTO MD Admitting Unavailable RIK CRAMER MD Consulting Unavailable HELENE SOTO MD Primary Care Unavailable PROVIDER, UNKNOWN Consulting Unavailable PROVIDER, UNKNOWN Consulting Unavailable EDDA VALENCIA Admitting Unavailable EDDA VALENCIA Attending Unavailable MEHUL PRUETT Consulting Unavailable TABROBERT BECHARA G Attending Unavailable CRISTÓBAL IBARRA Primary Care Unavailable TABET BECHARA G Referring Unavailable CRISTÓBAL IBARRA Primary Care Unavailable Allergies Allergy Classification Reported Allergen(s) Allergy Type Date of Onset Reaction(s) Facility NSAIDs (1 source) Ketorolac Drug Allergy [facility] Repository (6 sources) Erythromycin Drug Allergy 01-28-2021 [facility] (7 sources) Ketorolac; 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: [KETOROLAC] Drug Allergy 01-28-2021 [facility] (1 source) Erythromycin Drug Allergy [facility] Repository (1 source) Ketorolac Drug Allergy [facility] Repository (1 source) Azithromycin; 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: [AZITHROMYCIN] Drug Allergy 07-24-2022 [facility] Repository Medications Current Medications Medication Drug Class(es) Dates Sig (Normalized) Sig (Original) Aspirin-Acetaminop hen-Caffeine (EXCEDRIN PO) (6 sources) Aspirin-Acetamin ophen -Caffeine (EXCEDRIN PO) Take by mouth. 0 Active DISABILITY PLACARD (2 sources) Start: 08-12-2021 DISABILITY PLACARD Indications: Rheumatoid arthritis involving multiple sites with positive rheumatoid factor , Systemic lupus erythematosus, unspecified SLE type, unspecified organ involvement status , Abnormal ANCA test , JACE positive , Anti-cyclic citrullinated peptide antibody positive , Anti-DISTRIBUTOR SALES MANAGER antibodies present , Family history of colitis , Family history of gout , Family history of osteoarthritis , Family history of osteoporosis in mother , Family history of psoriasis in mother , Family history of rheumatoid arthritis , History of osteoarthritis , History of rheumatoid arthritis , shelter 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-steroidal anti-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 (NSAID) , 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 , Long-term use of high-risk medication , Rheumatoid factor positive , Vitamin D deficiency , DDD (degenerative disc disease), cervical , 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 , Obesity (BMI 30.0-34.9) , Fatigue, unspecified type , Dorsalgia , Chronic pain of both knees , Chronic pain of both ankles , Cervicalgia , Bilateral foot pain , Disorder of bone and cartilage , Chronic pain of both shoulders , Bilateral wrist pain , Bilateral hip pain , Bilateral hand pain Handicapped 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 5 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 1 Each 08/12/2021 Active 1 ml etanercept 50 mg/ml auto-injector (8 sources) Tumor Necrosis Factor Khari Start: 08-31-2021 Etanercept 50 MG/ML Solution Auto-injector injection Indications: Rheumatoid arthritis involving multiple sites with positive rheumatoid factor , Family history of colitis , Family history of gout , Family history of osteoarthritis , Family history of osteoporosis in mother , Family history of psoriasis in mother , Family history of rheumatoid arthritis , History of osteoarthritis , History of rheumatoid arthritis , 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) , shelter 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 systemic steroids , Long-term use of high-risk medication , Obesity (BMI 30.0-34.9) , Fatigue, unspecified type , Dorsalgia , Chronic pain of both knees , Chronic pain of both ankles , Cervicalgia , Bilateral foot pain , Disorder of bone and cartilage , Chronic pain of both shoulders , Bilateral wrist pain , Bilateral hip pain , Bilateral hand pain 50 mg injection one day a week 4 mL 08/31/2021 Active Completed/Discontinued Medications Medication Drug Class(es) Dates Sig (Normalized) Sig (Original) ibuprofen 400 mg oral tablet (1 source) Nonsteroidal Anti-inflammatory Drug End: 01-28-2021 take 1 tablet by mouth every six hours as needed ibuprofen 400 MG tablet Take 400 mg by mouth every 6 hours as needed for Mild Pain. 0 01/28/2021 Discontinued Problems Active Problems Problem Classification Problem Date Documented Date Episodic/Chronic Abdominal pain (2 sources) Unspecified abdominal pain; 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: [Unspecified abdominal pain] Onset: 07-21-2022 Episodic Calculus of urinary tract (4 sources) Calculus of kidney; 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: [Personal history of urinary calculi] Onset: 07-21-2022 Episodic Disorders of lipid metabolism (1 source) Hyperlipidemia, unspecified; 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: [Hyperlipidemia, unspecified] Onset: 07-23-2022 Chronic Nutritional deficiencies (12 sources) Vitamin D deficiency; 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: [Vitamin D deficiency, unspecified] Onset: 05-13-2021 Chronic Other aftercare (12 sources) H/O: high risk medication; 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: [Other joint terminal attack controller (current) drug therapy] Onset: 01-28-2021 Episodic Other aftercare (12 sources) Long-term 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 systemic steroid; 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: [truck terminal manager (current) use of systemic steroids] Onset: 01-28-2021 Episodic Other aftercare (12 sources) Patient encounter status; 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: [truck terminal manager (current) use of non-steroidal anti-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 (NSAID)] Onset: 01-28-2021 Episodic Other connective tissue disease (12 sources) H/O: rheumatoid arthritis; 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: [Personal history of other diseases of the musculoskeletal system and connective tissue] Onset: 01-28-2021 Episodic Other connective tissue disease (12 sources) H/O: osteoarthritis; 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: [Personal history of other diseases of the musculoskeletal system and connective tissue] Onset: 01-28-2021 Episodic Other nervous system disorders (2 sources) Other chronic pain; 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: [Other chronic pain] Onset: 01-28-2021 Chronic Other non-traumatic joint disorders (7 sources) Shoulder pain; 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: [Pain in right shoulder] Onset: 01-28-2021 Episodic Other nutritional; endocrine; and metabolic disorders (8 sources) Obese class I; 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: [Obesity, unspecified] Onset: 01-28-2021 Chronic Other nutritional; endocrine; and metabolic disorders (2 sources) Obesity, unspecified; 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: [Obesity, unspecified] Onset: 01-28-2021 Chronic Residual codes; unclassified (12 sources) FH: Rheumatoid arthritis; 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: [Family history of arthritis] Onset: 01-28-2021 Episodic Residual codes; unclassified (12 sources) FH: Psoriasis; 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: [Family history of diseases of the skin and subcutaneous tissue] Onset: 01-28-2021 Episodic Residual codes; unclassified (12 sources) Family history of osteoporosis; 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: [Family history of osteoporosis] Onset: 01-28-2021 Episodic Residual codes; unclassified (12 sources) FH: Osteoarthritis; 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: [Family history of other diseases of the musculoskeletal system and connective tissue] Onset: 01-28-2021 Episodic Residual codes; unclassified (12 sources) FH: Gout; 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: [Family history of other diseases of the musculoskeletal system and connective tissue] Onset: 01-28-2021 Episodic Residual codes; unclassified (12 sources) FH: Colitis; 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: [Family history of other diseases of the digestive system] Onset: 01-28-2021 Episodic Rheumatoid arthritis and related disease (16 sources) Rheumatoid arthritis with rheumatoid factor of multiple sites without organ or systems involvement; 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: [Rheumatoid arthritis of multiple joints] Onset: 08-03-2020 Chronic Spondylosis; intervertebral disc disorders; other back problems (12 sources) Degeneration of cervical intervertebral disc; 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: [Other cervical disc degeneration, unspecified cervical region] Onset: 08-12-2021 Chronic Systemic lupus erythematosus and connective tissue disorders (12 sources) Systemic lupus erythematosus; 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: [Systemic lupus erythematosus, unspecified] Onset: 05-13-2021 Chronic Thyroid disorders (10 sources) Hypothyroidism; 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: [Hypothyroidism, unspecified] Onset: 05-13-2021 Chronic Unclassified (1 source) Thrombocytosis, unspecified; 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: [Thrombocytosis, unspecified] Onset: 05-13-2021 Past or Other Problems Problem Classification Problem Date Documented Date Episodic/Chronic Diabetes mellitus without complication (11 sources) Hyperglycemia; 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: [Hyperglycemia, unspecified] Onset: 05-13-2021 Episodic Fluid and electrolyte disorders (20 sources) Hyperchloremia; 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: [Other disorders of electrolyte and fluid balance, not elsewhere classified] Onset: 05-13-2021 Resolved: 12-09-2021 Episodic Genitourinary symptoms and ill-defined conditions (7 sources) Microscopic hematuria; 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: [Other microscopic hematuria] Onset: 11-01-2021 Episodic Immunizations and screening for infectious disease (20 sources) Antineutrophil cytoplasmic antibody positive; 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: [Other specified abnormal immunological findings in serum] Onset: 05-13-2021 Episodic Malaise and fatigue (10 sources) Fatigue; 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: [Other fatigue] Onset: 01-28-2021 Episodic Neoplasms of unspecified nature or uncertain behavior (8 sources) Thrombocytosis; 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: [Thrombocytosis] Onset: 05-13-2021 Resolved: 08-12-2021 Episodic Other aftercare (4 sources) Other [place] (current) drug therapy; 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: [OTH SHARED SERVICES MANAGER CURRENT DRUG THERAPY] Onset: 08-03-2020 Episodic Other aftercare (2 sources) shelter (current) use of non-steroidal anti-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 (NSAID); 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: [truck terminal manager (current) use of non-steroidal anti-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 (nsaid)] Onset: 01-28-2021 Episodic Other aftercare (3 sources) truck terminal manager (current) use of systemic steroids; 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: [truck terminal manager (current) use of systemic steroids] Onset: 01-28-2021 Episodic Other bone disease and musculoskeletal deformities (8 sources) Disorder of skeletal system; 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: [Disorder of bone, unspecified] Onset: 01-28-2021 Episodic Other bone disease and musculoskeletal deformities (2 sources) Disorder of bone, unspecified; 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: [Disorder of bone, unspecified] Onset: 01-28-2021 Episodic Other bone disease and musculoskeletal deformities (2 sources) Disorder of cartilage, unspecified; 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: [Disorder of cartilage, unspecified] Onset: 01-28-2021 Episodic Other connective tissue disease (8 sources) Pain in both feet; 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: [Pain in right foot] Onset: 01-28-2021 Episodic Other connective tissue disease (8 sources) Pain of bilateral hands; 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: [Pain in right hand] Onset: 01-28-2021 Episodic Other connective tissue disease (2 sources) Low back pain; 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: [Myalgia, other site] Onset: 08-12-2021 08-12-2021 Episodic Other connective tissue disease (2 sources) Pain in right foot; 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: [Pain in right foot] Onset: 01-28-2021 Episodic Other connective tissue disease (2 sources) Pain in left foot; 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: [Pain in left foot] Onset: 01-28-2021 Episodic Other connective tissue disease (2 sources) Pain in right hand; 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: [Pain in right hand] Onset: 01-28-2021 Episodic Other connective tissue disease (2 sources) Pain in left hand; 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: [Pain in left hand] Onset: 01-28-2021 Episodic Other connective tissue disease (2 sources) Personal history of other diseases of the musculoskeletal system and connective tissue; 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: [Personal history of other diseases of the musculoskeletal system and connective tissue] Onset: 01-28-2021 Episodic Other hematologic conditions (8 sources) ESR raised; 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: [Elevated erythrocyte sedimentation rate] Onset: 05-13-2021 Resolved: 08-12-2021 Episodic Other hematologic conditions (2 sources) Elevated erythrocyte sedimentation rate; 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: [Elevated erythrocyte sedimentation rate] Onset: 05-13-2021 Episodic Other non-traumatic joint disorders (10 sources) Pain in right knee; 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: [Pain in joint, lower leg] Onset: 01-28-2021 Episodic Other non-traumatic joint disorders (8 sources) Ankle pain; 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: [Pain in right ankle and joints of right foot] Onset: 01-28-2021 Episodic Other non-traumatic joint disorders (8 sources) Bilateral wrist pain; 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: [Pain in right wrist] Onset: 01-28-2021 Episodic Other non-traumatic joint disorders (8 sources) Hip pain; 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: [Pain in right hip] Onset: 01-28-2021 Episodic Other non-traumatic joint disorders (1 source) Bilateral chronic pain of upper limbs; 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: [Pain in right shoulder] Onset: 01-28-2021 01-28-2021 Episodic Other non-traumatic joint disorders (2 sources) Pain in left knee; 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: [Pain in left knee] Onset: 01-28-2021 Episodic Other non-traumatic joint disorders (2 sources) Pain in right ankle and joints of right foot; 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: [Pain in right ankle and joints of right foot] Onset: 01-28-2021 Episodic Other non-traumatic joint disorders (2 sources) Pain in left ankle and joints of left foot; 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: [Pain in left ankle and joints of left foot] Onset: 01-28-2021 Episodic Other non-traumatic joint disorders (2 sources) Pain in right shoulder; 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: [Pain in right shoulder] Onset: 01-28-2021 Episodic Other non-traumatic joint disorders (2 sources) Pain in left shoulder; 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: [Pain in left shoulder] Onset: 01-28-2021 Episodic Other non-traumatic joint disorders (2 sources) Pain in right wrist; 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: [Pain in right wrist] Onset: 01-28-2021 Episodic Other non-traumatic joint disorders (2 sources) Pain in left wrist; 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: [Pain in left wrist] Onset: 01-28-2021 Episodic Other non-traumatic joint disorders (2 sources) Pain in right hip; 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: [Pain in right hip] Onset: 01-28-2021 Episodic Other non-traumatic joint disorders (2 sources) Pain in left hip; 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: [Pain in left hip] Onset: 01-28-2021 Episodic Other screening for suspected conditions (not mental disorders or infectious disease) (11 sources) Raised TSH level; 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: [Other specified abnormal findings of blood chemistry] Onset: 05-13-2021 Episodic Residual codes; unclassified (2 sources) Family history of other diseases of the digestive system; 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: [Family history of other diseases of the digestive system] Onset: 01-28-2021 Episodic Residual codes; unclassified (2 sources) Family history of other diseases of the musculoskeletal system and connective tissue; 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: [Family history of other diseases of the musculoskeletal system and connective tissue] Onset: 01-28-2021 Episodic Residual codes; unclassified (2 sources) Family history of osteoporosis; 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: [Family history of osteoporosis] Onset: 01-28-2021 Episodic Residual codes; unclassified (2 sources) Family history of diseases of the skin and subcutaneous tissue; 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: [Family history of diseases of the skin and subcutaneous tissue] Onset: 01-28-2021 Episodic Residual codes; unclassified (2 sources) Family history of arthritis; 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: [Family history of arthritis] Onset: 01-28-2021 Episodic Spondylosis; intervertebral disc disorders; other back problems (20 sources) Backache; 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: [Dorsalgia, unspecified] Onset: 01-28-2021 Episodic Unclassified (1 source) Thrombocytosis, unspecified; 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: [Thrombocytosis, unspecified] Onset: 05-13-2021 Results Test Name Value Interpretation Reference Range Facil ity Vital Signs Date Time Vital Sign Value Performing Clinician Alphonse steele 12-09-2021 12:38-0400 Body height 157.5 cm Mehul Stainbrook Jr., DO [facility] 12-09-2021 12:38-0400 Body mass index (BMI) [Ratio] 30 kg/m2 Mehul Burns Jr., DO Work [facility] 12-09-2021 12:38-0400 Body temperature 98.01 [degF] Mehul Burns Jr., DO Work Phone: [facility] 12-09-2021 12:38-0400 Body weight 74.39 kg Mehul Burns Jr., DO [facility] 12-09-2021 12:38-0400 Diastolic blood pressure 78 mm[Hg] Mehul Burns Jr., DO Work Phone: [facility] [email or web address] [facility] 12-09-2021 12:38-0400 Heart rate 93 /min Mehul Burns Jr., DO Work Phone: [facility] 12-09-2021 12:38-0400 SaO2% (BldA) [Mass fraction] 98 % Mehul Escobarrose marieraymundo Esteves, DO Work Phone: [facility] 12-09-2021 12:38-0400 Systolic blood pressure 124 mm[Hg] Mehul Burns Jr., DO Work Phone: [facility] 08-12-2021 11:18-0400 Body height 157.5 cm Mehul Burns Jr., DO Work Phone: [employer] [facility] 08-12-2021 11:18-0400 Body mass index (BMI) [Ratio] 30 kg/m2 Mehul Escobarrose marieraymundo Esteves, DO Work Phone: [employer] [facility] 08-12-2021 11:18-0400 Body temperature 98.01 [degF] Mehul Shawnrose marieraymundo Esteves, DO Work Phone: [employer] [facility] 08-12-2021 11:18-0400 Body weight 74.39 kg Mehul Shawnjusten Esteves, DO Work Phone: [facility] 08-12-2021 11:18-0400 Diastolic blood pressure 76 mm[Hg] Mehul Escobarrose marieraymundo LugoEtta, DO Work Phone: [facility] 08-12-2021 11:18-0400 Heart rate 84 /min Mehul Escobarrose marieraymundo LugoEtta, DO Work Phone: [facility] 08-12-2021 11:18-0400 SaO2% (BldA) [Mass fraction] 97 % Mehul Escobarrose marieraymundo LugoEtta, DO Work Phone: [facility] 08-12-2021 11:18-0400 Systolic blood pressure 128 mm[Hg] Mehul Burns Jr., DO Work Phone: [facility] 05-13-2021 09:07-0400 Body height 157.5 cm Mehul Burns Jr., DO Work Phone: [facility] 05-13-2021 09:07-0400 Body mass index (BMI) [Ratio] 30 kg/m2 Mehul Shawnjusten Esteves, DO Work Phone: [facility] 05-13-2021 09:07-0400 Body weight 74.39 kg Mehul Escobarrose marieraymundo LugoEtta, DO Work Phone: [facility] 05-13-2021 09:07-0400 Diastolic blood pressure 82 mm[Hg] Mehul Burns Jr., DO Work Phone: [facility] 05-13-2021 09:07-0400 Systolic blood pressure 118 mm[Hg] Mehul Burns Jr., DO Work Phone: [facility] 01-28-2021 10:26-0500 Body height 157.5 cm Mehul Burns Jr., DO Work Phone: [facility] 01-28-2021 10:26-0500 Body mass index (BMI) [Ratio] 30 kg/m2 Mehul Burns Jr., DO Work Phone: [employer] 01-28-2021 10:26-0500 Body temperature 98.01 [degF] Mehul Escobarjusten Esteves, DO Work Phone: [employer] 01-28-2021 10:26-0500 Body weight 74.39 kg Mehul Escobarjusten Esteves, DO Work Phone: [employer] 01-28-2021 10:26-0500 Diastolic blood pressure 88 mm[Hg] Mehul Burns Jr., DO Work Phone: [employer] 01-28-2021 10:26-0500 Heart rate 78 /min Mehul Escobarjusten Esteves, DO Work Phone: [facility] 01-28-2021 10:26-0500 SaO2% (BldA) [Mass fraction] 98 % Mehul Burns Jr., DO Work Phone: [facility] 01-28-2021 10:26-0500 Systolic blood pressure 138 mm[Hg] Mehul Escobarjusten Esteves, DO Work Phone: [facility] [facility] Encounters Encounter Date Encounter Type Care Provider Facility Start: 10-10-2022 End: 10-10-2022 ambulatory HELENE [facility] Start: 09-02-2022 ambulatory HELENE HAWLEY [facility] Start: 08-29-2022 End: 08-29-2022 ambulatory HELENE HAWLEY [facility] Start: 08-15-2022 End: 08-15-2022 [facility] Start: 08-09-2022 End: 08-09-2022 ambulatory KATIE WYNN Facility:[id number] Start: 07-24-2022 Evaluation and management of inpatient EDDA VALENCIA Facility:[id number] Start: 07-23-2022 Encounter for genera l adult medical examination without abnormal findings [facility] Start: 07-23-2022 ambulatory CRISTÓBAL MD [facility] Start: 07-23-2022 End: 07-24-2022 Emergency department patient visit CRISTÓBAL HAWLEY [facility] Start: 07-21-2022 End: 07-21-2022 Emergency department patient visit CRISTÓBAL HAWLEY [facility] Start: 06-22-2022 End: 06-22-2022 ambulatory [facility] Start: 01-31-2022 ambulatory [facility] Start: 01-25-2022 End: 01-25-2022 ambulatory [facility] Start: 12-09-2021 ambulatory [facility] Start: 12-09-2021 End: 12-09-2021 Office outpatient visit 25 minutes Mehul Burns DO Work Phone: [facility] Rheumatology Procedures Date Procedure Procedure Detail Performing Clinician Start: 07-24-2022 Urinalysis HELENE SANDERS Plan of Treatment Date Care Activity Detail Author Start: 05-30-2022 End: 12-09-2022 VITAMIN D (25-HYDROXY,TOTAL) VITAMIN D (25-HYDROXY,TOTAL) Lab Routine Rheumatoid arthritis involving multiple sites with positive rheumatoid factor Systemic lupus erythematosus, unspecified SLE type, unspecified organ involvement status Abnormal ANCA test JACE positive Anti-cyclic citrullinated peptide antibody positive Anti-DISTRIBUTOR SALES MANAGER antibodies present Family history of colitis Family history of gout Family history of osteoarthritis Family history of osteoporosis in mother Family history of psoriasis in mother Family history of rheumatoid arthritis Other microscopic hematuria History of osteoarthritis History of rheumatoid arthritis shelter 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 Long-term use of high-risk medication Rheumatoid factor positive Vitamin D deficiency Hyperglycemia DDD (degenerative disc disease), cervical 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 Expected: 05/30/2022 (Approximate), Expires: 12/09/2022 [facility] Payers Date Payer Category Payer Unknown NANCY CRUZ O PPO POS [id number] 2020-Present [address] [place] [address] [id number] 2020 Unknown ANTHEM ANTHEM HM O PPO POS [id number] 2020-Present [address] [place] [address] [id number] 2020 Unknown [id number] 1967 Unknown [id number] 2.16.840.1.060984.3.579.2.419 1967 Unknown [id number] 2.16.840.1.855170.3.579.2.419 1967 Unknown [id number] 2.16.840.1.303437.3.579.2.983 1967 Unknown [id number] 2.16.840.1.398182.3.579.2.983 1967 Unknown [id number] 2.16.840.1.970771.3.579.2.983 1967 Unknown [id number] 2.16.840.1.068353.3.579.2.983 1967 Unknown [id number] 2.16.840.1.961674.3.579.2.983 1967 Unknown [id number] 2.16.840.1.564115.3.579.2.983 1967 Unknown [id number] 2.16.840.1.601547.3.579.2.983 1967 Unknown [id number] 2.16.840.1.558215.3.579.2.983 1967 Unknown [id number] 2.16.840.1.803739.3.579.2.983 1967 Unknown [id number] 2.16.840.1.017475.3.579.2.983 1967 Unknown [id number] 2.16.840.1.763739.3.579.2.983 1967 Unknown [id number] 2.16.840.1.646128.3.579.2.983 1967 Unknown [id number] 2.16.840.1.679570.3.579.2.983 1967 Unknown [id number] 2.16.840.1.422074.3.579.2.983 1967 Unknown [id number] 2.16.840.1.781286.3.579.2.651 1967 Unknown [id number] 2.16.840.1.881020.3.579.2.65 1967 Unknown [id number] 2.16.840.1.240331.3.579.2.65 1967 Unknown [id number] 2.16.840.1.442008.3.579.2.65 1967 Unknown [id number] 2.16.840.1.497990.3.579.2.651 1967 Unknown [id number] 2.16.840.1.736766.3.579.2. 1967 Unknown [id number] 2.16.840.1.064354.3.579.2.651 1967 Unknown [id number] 2.16.840.1.437851.3.579.2.651 1967 Unknown [id number] 2.16.840.1.181315.3.579.2.651 1967 Unknown [id number] 2.16.840.1.179845.3.579.2.65 1967 Unknown [id number] 2.16.840.1.310606.3.579.2.651 1967 Unknown [id number] 2.16.840.1.769274.3.579.2.65 1967 Unknown [id number] 2.16.840.1.522637.3.579.2.651 1967 Unknown [id number] 2.16.840.1.772392.3.579.2.651 Medicaid [id number] Unknown [id number] Social History Date Type Detail Facility Start: 01-28-2021 Tobacco smoking stat RUSTIS Smokes tobacco daily [facility] [email or web address] [facility] History of tobacco use Cigarette Smoker [employer] [facility] Start: 01-28-2021 Cigarettes smoked current (pack per day) - Reported 0.5 [employer] Start: 01-28-2021 Tobacco use and exposure Smoke less tobacco [facility] Start: 01-28-2021 End: 12-09-2021 Alcohol intake Lifetime non-drinker (finding) [facility] Start: 1965 Sex Assigned At Not on file [facility] 08-28-2019 to 09-02-2022 Mehul Burns Jr., DO - 12/09/2021 1:00 PM EDTDavijamil Burns Jr., DO - 08/12/2021 11:30 AM EDTAddendum Note - Mehul Burns Jr., DO - 08/12/2021 11:30 AM EDT Note Date & Type Note Facility 09-02-2022 Note HNO ID: [id number] Author: Chin Tolentino RN Service: ? Author Type: Registered Nurse Type: Nursing Progress Note Filed: 09/02/2022 4:32 PM Note Text: Called spouses phone and left message. [facility] 09-02-2022 Note HNO ID: [id number] Author: Chin Tolentino RN Service: Nursing Author Type: Registered Nurse Type: Nursing Progress Note Filed: 09/02/2022 10:56 AM Note Text: Multiple calls have been made and voicemails left, no answer and no return call. [facility] 08-09-2022 Note HNO ID: [id number] Author: Katie Wynn MD Service: ? Author Type: Physician Type: Progress Notes Filed: 08/09/2022 2:58 PM Note Text: [facility] ESTABLISHED PATIENT OFFICE VISIT HISTORY OF PRESENT ILLNESS Gregoria Wilcox is a 57 year old female who is here for follow up of left kidney stones the patient has had a stent placed on the left side and today's KUB showing a stone about 6 to 7 mm in the renal pelvis and questionable stone in the distal left ureter alongside the stent . Review of Systems The remainder of the ROS was reviewed and is negative. LAB Creatinine Date Value Ref Range Status 07/26/2022 0.90 0.51 - 0.95 mg/dL Final Comment: Patients receiving either N-Acetylcysteine (NAC) or Metamizole prior to venipuncture, may have falsely depressed results. GLUCOSE UA (POCT) (mg/dL) Date Value 08/09/2022 Negative BILIRUBIN UA (POCT) (no units) Date Value 08/09/2022 Negative KETONE UA (POCT) (mg/dL) Date Value 08/09/2022 Negative SPECIFIC GRAVITY UA (POCT) (no units) Date Value 08/09/2022 <=1.005 (A) HEMOGLOBIN/BLOOD UA (POCT) (no units) Date Value 08/09/2022 Large (A) PH UA (POCT) (no units) Date Value 08/09/2022 5.5 PROTEIN UA (POCT) (mg/dL) Date Value 08/09/2022 100 (A) UROBILINOGEN UA (POCT) (E.U./dL) Date Value 08/09/2022 0.2 NITRITE UA (POCT) (no units) Date Value 08/09/2022 Positive (A) LEUKOCYTES UA (POCT) (no units) Date Value 08/09/2022 Large (A) COLOR UA (POCT) (no units) Date Value 08/09/2022 Yellow CLARITY UA (POCT) (no units) Date Value 08/09/2022 Clear ] MEDICATIONS atorvastatin (LIPITOR) 40 mg tablet Take 40 mg by mouth daily at bedtime. cephALEXin (KEFLEX) 500 mg capsule Take 500 mg by mouth every 8 hours. cyclobenzaprine (FLEXERIL) 5 mg tablet Take 5 mg by mouth as needed. folic acid 1 mg tablet Take 2 mg by mouth once daily. methotrexate 2.5 mg tablet TAKE SIX TABLETS BY MOUTH ONCE a WEEK oxyCODONE-acetaminophen (PERCOCET) 5-325 mg tablet Take 1 tablet by mouth every 6 hours as needed. for severe pain predniSONE (DELTASONE) 10 mg tablet TAKE ONE TABLET BY MOUTH DAILY NEEDED. take NEEDED FOR 3-5 DAYS with a flare. traMADol (ULTRAM) 50 mg tablet Take 50 mg by mouth three times daily as needed. 0 HISTORIES PAST MEDICAL HISTORY Diagnosis Date Kidney stones Rheumatoid arthritis (HCC) Systemic lupus erythematosus (HCC) History reviewed. No pertinent surgical history. FAMILY HISTORY Problem Relation Age of Onset Melanoma Mother SOCIAL HISTORY Social History Tobacco Use Smoking status: Every Day Types: Cigarettes Smokeless tobacco: Never Substance Use Topics Alcohol use: Never Drug use: Never Ht 159 cm (5' 2.6 ) Wt 70.8 kg (156 lb) BMI 27.99 kg/m? Physical Exam Cooperative in no acute distress Normocephalic Breathing is normal Heart is normal Lungs are clear ASSESSMENT AND PLAN: No problem-specific Assessment AND Plan notes found for this encounter. ASSESSMENT/PLAN: 1. Kidney stone - ICD9: 592.0, ICD10: N20.0 7 mm with a questionable left ureteral stone, Will require CT scan prior to ureteroscopy - XR ABDOMEN 1V SUPINE Katie Wynn MD This note was partially created using voice recognition software and is inherently subject to errors including those of syntax and sound-alike substitutions which may escape proofreading. In such instances, original meaning may be extrapolated by contextual derivation. [facility] 08-09-2022 Note HNO ID: [id number] Author: RT Aj(R) Service: ? Author Type: Technologist Type: Progress Notes Filed: 08/09/2022 2:19 PM Note Text: Radiology Service Progress Note PATIENT NAME: Gregoria Wilcox DATE OF SERVICE: August 09, 2022 TIME: 2:04 PM PATIENT IDENTITY VERIFICATION COMPLETED USING TWO (2) IDENTIFIERS: Name and Date of confirmed by patient verbally. FALL SCREENING: Has the patient had 2 falls in the last year or 1 fall with injury or currently using an Ambulatory Assistive Device (Walker, Cane, Wheelchair, Crutches, etc.)? No PATIENT GENDER DATA: Female. status: : No status: N/A PATIENT RELEVANT IMPLANT DATA REVIEWED: Not Applicable RADIOLOGY DEPARTMENT: General X-ray: Exam(s) Completed: Abdomen X-Ray: Abdomen PERIPHERAL IV DATA: Not applicable SIGNED BY: Gerson Medeiros, RT(R) August 09, 2022 2:04 PM [facility] 07-26-2022 Note HNO ID: [id number] Author: Emiliana Núñez RN Service: Care Management Author Type: Registered Nurse Type: Care Mgt Progress Note Filed: 07/26/2022 1:05 PM Note Text: CARE MANAGEMENT DISCHARGE NOTE SERVICE DATE: July 26, 2022 SERVICE TIME: 1304 Admission Date: 07/24/2022 LOS: 2 days Discharge Arrangement Discharge Arrangement: Home with Self Care Services Arranged Provider Name: Phone: Caregiver Assessment Caregiver is ready, willing and able to meet the patient's needs as recommended by the inter-professional team: No Caregiver needed Transportation Arrangements Transportation Arrangements: Car Handoff Communication: Additional Information: Pt to be discharged to home with via private vehicle. No needs noted. Case closed. SIGNATURE: Emiliana Núñez RN PATIENT NAME: Gregoria Wilcox DATE: July 26, 2022 TIME: 1:04 PM CONTACT #: [id number] [facility] 07-25-2022 Note HNO ID: [id number] Author: Lucy Flores APRN.PLANT BREEDER SCIENTIST Service: ? Author Type: Nurse Practitioner Type: Progress Notes Filed: 07/25/2022 2:09 PM Note Text: INPATIENT PROGRESS NOTE SERVICE DATE: 07/25/2022 SERVICE TIME: 2:04 PM PRIMARY SERVICE: Hospitalist Disposition: Home likely 07/26/2022 Subjective INTERVAL HPI: Status post stent placement by Dr. Wynn this AM. Patient states she feels much better today than she did on admission. Reports some minimal pain, and denies chest pain, shortness of breath, nausea. No acute events overnight per nursing. Objective PHYSICAL EXAM: BP 106/60 Pulse 65 Temp (Src) 98.1 (Oral) Resp 18 Ht 5' 2 (1.58m) Wt 164 lb 0.4 oz (74.4kg) SpO2 95% BMI 29.99 kg/(m2). O2 Therapy: Room Air, Liters: 1 Physical Exam Performed Physical Exam Vitals and nursing note reviewed. Constitutional: Appearance: Normal appearance. She is obese. HENT: Head: Normocephalic. Eyes: Conjunctiva/sclera: Conjunctivae normal. Pupils: Pupils are equal, round, and reactive to light. Neck: Trachea: Trachea normal. Cardiovascular: Rate and Rhythm: Normal rate and regular rhythm. Pulses: Normal pulses. Heart sounds: Normal heart sounds, S1 normal and S2 normal. No murmur heard. No friction rub. No gallop. Pulmonary: Effort: Pulmonary effort is normal. No respiratory distress. Breath sounds: Normal breath sounds. No stridor. No wheezing or rhonchi. Abdominal: General: Abdomen is flat. Bowel sounds are normal. There is no distension. Palpations: Abdomen is soft. Tenderness: There is no abdominal tenderness. There is no guarding or rebound. Musculoskeletal: General: Normal range of motion. Cervical back: Normal range of motion. Right lower leg: No edema. Left lower leg: No edema. Skin: General: Skin is warm and dry. Capillary Refill: Capillary refill takes less than 2 seconds. Neurological: General: No focal deficit present. Mental Status: She is alert and oriented to person, place, and time. Cranial Nerves: Cranial nerves 2-12 are intact. Sensory: Sensation is intact. Motor: No weakness. Psychiatric: Attention and Perception: Attention normal. Mood and Affect: Mood normal. Behavior: Behavior is cooperative. Thought Content: Thought content normal. DATA: Intake/Output Summary (Last 24 hours) at 07/25/2022 1404 Last data filed at 07/25/2022 1004 Gross per 24 hour Intake 2782 ml Output 1050 ml Net 1732 ml Current Facility-Administered Medications Medication Dose Route Frequency Provider Last Rate Last Admin heparin 5,000 Units injection 5,000 Units SUBCUTANEOUS q 12 H Katie Wynn MD acetaminophen 650 mg tab(s) (TYLENOL) 650 mg ORAL q 6 H PRN Katie Wynn MD 650 mg at 07/24/22 1227 ondansetron (PF) 4 mg injection (ZOFRAN) 4 mg INTRAVENOUS q 6 H PRN Katie Wynn MD 4 mg at 07/24/22 2034 cefTRIAXone 1 g in D5W 100 mL Vial-Bag (ROCEPHIN) 1 g INTRAVENOUS q 24 H Katie Wynn MD Stopped at 07/25/22 1034 NaCl 0.9% iv flush bag 20 mL INTRAVENOUS PRN Katie Wynn MD 20 mL/hr at 07/25/22 1005 20 mL at 07/25/22 1005 docusate sodium 100 mg cap(s) (COLACE) 100 mg ORAL BID Katie Wynn MD 100 mg at 07/25/22 1004 magnesium hydroxide 400 mg/5 mL 30 mL (MOM) 30 mL ORAL AT BEDTIME PRN Katie Wynn MD melatonin 3 mg tab(s) 3 mg ORAL AT BEDTIME PRN Katie Wynn MD atorvastatin 40 mg tab(s) (LIPITOR) 40 mg ORAL AT BEDTIME Katie Wynn MD methotrexate 15 mg tab(s) 15 mg ORAL q MON Katie Wynn MD 15 mg at 07/25/22 1004 predniSONE 10 mg tab(s) (DELTASONE) 10 mg ORAL DAILY PRN Katie Wynn MD oxyCODONE-acetaminophen 5-325 mg 1 tablet (PERCOCET) 1 tablet ORAL q 6 H PRN Katie Wynn MD 1 tablet at 07/24/22 1227 traMADol 50 mg tab(s) (ULTRAM) 50 mg ORAL TID PRN Katie Wynn MD HYDROmorphone HCl 1 mg injection (DILAUDID) 1 mg INTRAVENOUS q 4 H PRN Katie Wynn MD 1 mg at 07/25/22 0302 cyclobenzaprine 5 mg tab(s) (FLEXERIL) 5 mg ORAL TID PRN Katie Wynn MD 5 mg at 07/24/222021 Recent Results (from the past 24 hour(s)) CBC + DIFF Collection Time: 07/24/22 7:04 PM Result Value Ref Range WBC 8.72 3.70 - 11.00 k/uL RBC 3.35 (L) 3.90 - 5.20 m/uL Hemoglobin 10.7 (L) 11.5 - 15.5 g/dL Hematocrit 31.9 (L) 36.0 - 46.0 % MCV 95.2 80.0 - 100.0 fL MCH 31.9 26.0 - 34.0 pg MCHC 33.5 30.5 - 36.0 g/dL RDW-CV 13.5 11.5 - 15.0 % Platelet Count 284 150 - 400 k/uL MPV 10.1 9.0 - 12.7 fL Neutrophils % 58.7 % Abs Neut 5.11 1.45 - 7.50 k/uL Lymphocytes % 28.9 % Abs Lymph 2.52 1.00 - 4.00 k/uL Monocytes % 11.1 % Abs Nicholas 0.97 (H) <0.87 k/uL Eosinophils % 0.8 % Abs Eosin 0.07 <0.46 k/uL Basophils % 0.3 % Abs Baso 0.03 <0.11 k/uL Immature Granulocytes % 0.2 % Abs Immature Gran <0.03 <0.10 k/uL NRBC 0.0 /100 WBC Absolute nRBC <0.01 <0.01 k/uL Diff Type Auto CBC (more content not included)... [facility] 07-25-2022 Note HNO ID: [id number] Author: Emiliana Núñez RN Service: Care Management Author Type: Registered Nurse Type: Care Mgt Initial Assessment Filed: 07/25/2022 3:05 PM Note Text: CARE MANAGEMENT: ASSESSMENT AND DISCHARGE PLAN SERVICE DATE: July 25, 2022 SERVICE TIME: 1124 PCP: No primary care provider on file. Primary Contact: Extended Emergency Contact Information Primary Emergency Contact: Antolin Wilcox Mobile Relation: Spouse Admission Status: Inpatient Insurance Provider: DAMON MARR PPO OOS Discharge Planning requested by: Per Department Practice Potential Transition Plans Home Advance Directives Current Advance Directive: None Verification Specialist Attempted to Assist with AD Completion: Yes Action: Patient Unwilling Current Living Arrangements and Support Lives with: Spouse/significant other Type of Residence: Private Residence (House) Does the patient have to climb stairs at home?: Yes;stairs within the home Support: Spouse/significant other How do you manage to accomplish the following: Independent: Ambulation;Transportation to appointments/community;Bathe/Karen wer;Dress;Going to the bathroom;Meals/Meal Prep;Medication Management Current Services/Equipment Current Post-Acute Service(s): DME Current DME Type: Cane Discharge Planning Patient Goal(s): Be able to go home, Less pain [place] of Choice Explained: [place] of Choice Given: No Reason Not Given: No placements necessary Are you interested in bedside delivery of your medications? No Discharge Planning Participant(s): Patient Patient/Family Comments: Caregiver Assessment: Caregiver is ready, willing and able to meet the patient's needs as recommended by the inter-professional team: No Caregiver needed Transport at Discharge: Transportation Arrangements: Car Needs Prior to Discharge: Needs Prior to Discharge: None Post-Acute Discharge Plan: Admitted with kidney stone s/p cysto and stent insertion. On IV Rocephin. Urology following. Pt is current with PCP, Dr. Ibarra and last saw in February. D/C plan is home with , possibly tomorrow. Denies any needs. SIGNATURE: Emiliana Núñez RN PATIENT NAME: Gregoria Wilcox DATE: July 25, 2022 TIME: 3:04 PM CONTACT #: [id number] [facility] 07-25-2022 Note HNO ID: [id number] Author: Kavitha Andrews MD Service: Anesthesiology Author Type: Anesthesiologist Type: Anesthesia Procedure Notes Filed: 07/25/2022 9:06 AM Note Text: ANESTHESIOLOGY PROCEDURE NOTE Airway General Information Procedure Start Time/Medication Administration: 07/25/2022 8:03 AM Patient location during procedure: OR Timeout Performed Pre-procedure: timeout performed Consent Obtained: Yes Patient identity confirmed: arm band Staffing Anesthesiologist: Kavitha Andrews MD CAA: ORLIN Spicer Performed by: BALDEMAR Indications and Patient Condition Indications for airway management: anesthesia Preoxygenated: yes anesthesia circuit Patient position: sniffing Method: asleep Difficult Mask: No Final Airway Details Final airway type: supraglottic airway Number of attempts at approach: 1 Final Supraglottic Airway: LMA Unique Size 3 Seal Adequate: yes Airway not difficult Comments Smooth induction, easy LMA placement, no issues with anesthesia induction. SIGNATURE: ORLIN Spicer PATIENT NAME: Gregoria Wilcox DATE: July 25, 2022 TIME: 8:12 AM CSN: [id number] [facility] 07-24-2022 Note HNO ID: [id number] Author: Katie Wynn MD Service: Urology Author Type: Physician Type: Plan of Care Filed: 07/24/2022 6:43 PM Note Text: I was informed about the consult 1/2 an hour ago.patient ate 2 hours ago and she does not fit the criteria for sepsis according to the notes and lactate level. Will keep NPO and insert a left ureteral stent on her tomorrow [facility] 07-24-2022 Note HNO ID: [id number] Author: Liza Rowan APRN.SD Service: Hospital Medicine Author Type: Nurse Practitioner Type: Progress Notes Filed: 07/24/2022 1:57 PM Note Text: Patient seen this morning on the floor, still complaining of pain, tearful. Switch to her IV pain medication to Dilaudid. Nursing reports minimal improvement with still complains of muscle spasms. We will try Flexeril as needed. Awaiting urology recommendations. Patient noted to have elevated white count this morning greater than 14. States she has had fever and chills however per our records at this facility she has remained afebrile. Continue supportive care, home medications resumed. HANDP reviewed from this morning. [facility] 12-09-2021 History of Presen t illness Narrative History of Present Illness Enbrel started 2017. Enbrel was helping and not bothering the patient. Enbrel last dose 06/2020 and has been off of it ever since. enbrel restarted 02/2021. Enbrel had been helping and not bothering her. Last shot of Enbrel was 05/20/2021 and patient has been off ever since as she did not let us know that her is primary insurance per my nurse. Restarted Enbrel 09/2021. Enbrel is helping and not bothering the patient. Presence of Pain: complains of pain/discomfort Pain Location: ankle, left, ankle, right, finger (comment which one) Select Pain Scale: DVPRS (Defense and Veterans Pain Rating Scale) (Adult-Cognitively Intact) DVPRS: Rest: 5- moderate pain DVPRS: Activity: 5- moderate pain Select Pain Scale: DVPRS (Defense and Veterans Pain Rating Scale) (Adult-Cognitively Intact) Pain Frequency: constant Pain Quality: aching. Total time spent in this encounter was 33 minutes. Energy level is eh. Some days good and some days bad. Headaches are about the same. Joint pain was starting to radha bad in 09/2021 and is slowly getting better and is having pain in fingers and ankles. Back pain is still a lot of lower back and hip pain and hips feel weak, joint swelling is yeah. Fingers. Neck pain is yeah. Enbrel 09/28/21 and started feeling better. Patient states she is having LARA finger and ankle pain and swelling. Patient states the Prednisone 5mg does not seem to be working anymore. Patient is still smoking. Enbrel is once a week. I have been told that prednisone is a high risk medication. Review of Systems Constitutional: Positive for fatigue. HENT: Negative. Eyes: Negative. Respiratory: Negative. Cardiovascular: Negative. Gastrointestinal: Negative. Endocrine: Negative. Genitourinary: Negative. Musculoskeletal: Positive for arthralgias, back pain, joint swelling, neck pain and neck stiffness. Skin: Negative. Allergic/Immunologic: Negative. Neurological: Positive for weakness and headaches. Hematological: Negative. Psychiatric/Behavioral: Negative. Vitals: Blood pressure 124/78, pulse 93, temperature 98 F (36.7 C), temperature source Temporal, height 1.575 m (5' 2 ), weight 74.4 kg (164 lb), SpO2 98 %. Physical Exam Vitals and nursing note reviewed. Constitutional: Appearance: Normal appearance. She is obese. HENT: Head: Normocephalic and atraumatic. Right Ear: External ear normal. Left Ear: External ear normal. Nose: Nose normal. Mouth/Throat: Comments: mask Eyes: Extraocular Movements: Extraocular movements intact. Conjunctiva/sclera: Conjunctivae normal. Pupils: Pupils are equal, round, and reactive to light. Comments: glasses Cardiovascular: Rate and Rhythm: Normal rate and regular rhythm. Pulses: Radial pulses are 2+ on the right side and 2+ on the left side. Heart sounds: Normal heart sounds. Comments: Pulmonary: Effort: Pulmonary effort is normal. Breath sounds: Normal breath sounds. Abdominal: General: Bowel sounds are normal. Palpations: Abdomen is soft. Comments: obese Musculoskeletal: Right shoulder: Normal. Left shoulder: Normal. Right upper arm: Normal. Left upper arm: Normal. Right elbow: Normal. Left elbow: Normal. Right forearm: Normal. Left forearm: Normal. Right wrist: Decreased range of motion. Left wrist: Decreased range of motion. Right hand: Decreased range of motion. Decreased strength. Left hand: Decreased range of motion. Decreased strength. Cervical back: Neck supple. Right upper leg: Normal. Left upper leg: Normal. Right knee: Bony tenderness present. Decreased range of motion. Tenderness present. Left knee: Bony tenderness present. Decreased range of motion. Tenderness present. Right lower leg: Normal. Left lower leg: Normal. Right ankle: Decreased range of motion. Left ankle: Decreased range of motion. Skin: General: Skin is warm and dry. Comments: Tattoos RLE and R breast and L hand Neurological: Mental Status: She is alert and oriented to person, place, and time. Cranial Nerves: Cranial nerves 2-12 are intact. Motor: Weakness present. 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 Behavior: Behavior normal. Thought Content: Thought content normal. Judgment: Judgment normal. Neurological Exam Mental Status Alert. Oriented to person, place, and time. Cranial Nerves CN II: Vision test: glasses. CN III, IV, : Extraocular movements intact bilaterally. Pupils equal round and reactive to light bilaterally. 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 Assessment and Plan Encounter Diagnoses Name Primary? Rheumatoid arthritis involving multiple sites with positive rheumatoid factor Yes Systemic lupus erythematosus, unspecified SLE type, unspecified organ involvement status Abnormal ANCA test JACE positive Anti-cyclic citrullinated peptide antibody positive Anti-DISTRIBUTOR SALES MANAGER antibodies present Family history of colitis Family history of gout Family history of osteoarthritis Family history of osteoporosis in mother Family history of psoriasis in mother Family history of rheumatoid arthritis Other microscopic hematuria History of osteoarthritis History of rheumatoid arthritis shelter 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-steroidal anti-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 (NSAID) shelter 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 systemic steroids Long-term use of high-risk medication Rheumatoid factor positive Vitamin D deficiency Hyperglycemia DDD (degenerative disc disease), cervical 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 1. Time was spent with the patient today in education in re: to all their medical conditions. A complete H&P&ROS was obtained and is either in this note or in the EHR. Please do not hesitate to contact me with any questions or concerns re: this patient. Past History Past medical, surgical, family, and social histories have been reviewed and updated with the patient today and are located elsewhere in the medical record. 2. Thank you for allowing me to participate in the care of your patient. With your permission I would like to F/U with your patient. 3. RF was elevated at > 720 4. Negative Celiac, HLA-B27, MPO, PR3, cANCA, pANCA, Hep A&B&C serology, ASMA, AMA 5. Patient told to stop smoking 6. Stop OTC IBP 7. Monitor CBC/LFT/Renal func every 6-12 months as long as patient is on daily NSAID 8. CCP was elevated at 89 9. TB was negative 10. Hold Enbrel 2 weeks before and 2 weeks after any surgery or live vaccine (shingles). Hold Enbrel anytime have an infection can restart once off of ATB and/or antiviral and free of infection. Hold Enbrel anytime there is an open wound can restart once wound has healed 11. Plaquenil stopped as could not afford the eye exams 12. Methotrexate stopped due to elevated LFT. 13. LIAT level was normal at 49 14. Atypical pANCA was elevated at 1:80 15. Rx given for PT/OT: because of the Enbrel patient did not start PT/OT 16. UA shows no protein and 10 blood with no RBC/HPF was treated for UTI in ER. 17. Rx given for Arava 10 mg 1 pill a day 18. Lab on or about 01/25/2022 19. JACE was positive 20. C3 was normal at 153 and still is at 156 21. C4 was normal at 29 and still is at 30 22. Patient declines referral to chronic pain management 23. dosoquin 1 pill a day 24. Monitor Vit D level every 6 -12 months if remains low rec: eval by endo 25. Glucose was elevated at 111 and still is at 117 26. Chloride was elevated at 112 and is now normal at 107 27. CO2 was low at 20 and is now normal at 30.2 28. Uric acid was normal at 4.4 29. ESR was normal at 16 and still is at 6 30. CRP was positive at 1.3 and is now negative at < 0.2 31. TSH was elevated at 5.920 and patient is going to F/U with PCP 32. F/U with me in 2 months 33. 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 Will try to decrease Prednisone at F/U visits 35. Repeat vit D level on or about 05/30/2022 with copy to PCP documented in this encounter [facility] 08-12-2021 History of Presen t illness Narrative History of Present Illness Enbrel started 2018. Enbrel was helping and not bothering the patient. Enbrel last dose 06/2020 and has been off of it ever since. enbrel restarted 02/2021. Enbrel had been helping and not bothering her. Last shot of Enbrel was 05/20/2021 and patient has been off ever since as she did not let us know that her is primary insurance per my nurse. Presence of Pain: complains of pain/discomfort Pain Location: (Everywhere) Select Pain Scale: DVPRS (Defense and Veterans Pain Rating Scale) (Adult-Cognitively Intact) DVPRS: Rest: 5- moderate pain DVPRS: Activity: 5- moderate pain Select Pain Scale: DVPRS (Defense and Veterans Pain Rating Scale) (Adult-Cognitively Intact) Pain Frequency: constant Pain Quality: aching. Total time spent in this encounter was 26 minutes. Energy level is not real good. Joint pain is yeah - everywhere. Back pain is yeah. Joint swelling is yes. Neck pain is oh yeah. Patient is here today for her 3 Month F/U. Patient states she has not Inés due to insurance issues. Patient states she is having joint pain everyday since she has been off the Enbrel. Patient states she is having severe swelling and joint pain. Patient states she is wanting a Handicap Placard. Patient has been off of Prednisone for 3 weeks. Patient has almost quit smoking at 6 a day. I do not have results of all the blood work I ordered and will try to track those down. Review of Systems Constitutional: Positive for fatigue. HENT: Negative. Eyes: Negative. Respiratory: Negative. Cardiovascular: Negative. Gastrointestinal: Negative. Endocrine: Negative. Genitourinary: Negative. Musculoskeletal: Positive for arthralgias, back pain, joint swelling, neck pain and neck stiffness. Skin: Negative. Allergic/Immunologic: Negative. Neurological: Positive for headaches. Hematological: Negative. Psychiatric/Behavioral: Negative. Vitals: Blood pressure 128/76, pulse 84, temperature 98 F (36.7 C), temperature source Temporal, height 1.575 m (5' 2 ), weight 74.4 kg (164 lb), SpO2 97 %. Physical Exam Vitals and nursing note reviewed. Constitutional: Appearance: Normal appearance. She is obese. HENT: Head: Normocephalic and atraumatic. Comments: Blue hair Right Ear: External ear normal. Left Ear: External ear normal. Nose: Nose normal. Mouth/Throat: Comments: mask Eyes: Extraocular Movements: Extraocular movements intact. Conjunctiva/sclera: Conjunctivae normal. Pupils: Pupils are equal, round, and reactive to light. Comments: glasses Cardiovascular: Rate and Rhythm: Normal rate and regular rhythm. Pulses: Radial pulses are 2+ on the right side and 2+ on the left side. Heart sounds: Normal heart sounds. Comments: Pulmonary: Effort: Pulmonary effort is normal. Breath sounds: Normal breath sounds. Abdominal: General: Bowel sounds are normal. Palpations: Abdomen is soft. Comments: obese Musculoskeletal: Right shoulder: Tenderness and bony tenderness present. Decreased range of motion. Left shoulder: Tenderness and bony tenderness present. Decreased range of motion. Right upper arm: Tenderness present. Left upper arm: Tenderness present. Right elbow: Normal. Left elbow: Normal. Right forearm: Normal. Left forearm: Normal. Right wrist: Swelling, effusion, tenderness and bony tenderness present. Decreased range of motion. Left wrist: Swelling, effusion, tenderness and bony tenderness present. Decreased range of motion. Right hand: Swelling, tenderness and bony tenderness present. Decreased range of motion. Left hand: Swelling, tenderness and bony tenderness present. Decreased range of motion. Cervical back: Neck supple. Right upper leg: Normal. Left upper leg: Normal. Right knee: Bony tenderness present. Decreased range of motion. Tenderness present. Left knee: Bony tenderness present. Decreased range of motion. Tenderness present. Right lower leg: Normal. Left lower leg: Normal. Right ankle: Decreased range of motion. Left ankle: Decreased range of motion. Skin: General: Skin is warm and dry. Comments: Tattoos RLE and R breast and L hand Neurological: Mental Status: She is alert and oriented to person, place, and time. Cranial Nerves: Cranial nerves are intact. Motor: Motor function is intact. Psychiatric: Mood and Affect: Mood normal. Behavior: Behavior normal. Thought Content: Thought content normal. Judgment: Judgment normal. Neurological Exam Mental Status Alert. Oriented to person, place, and time. Cranial Nerves CN II: Vision test: glasses. CN III, IV, : Extraocular movements intact bilaterally. Pupils equal round and reactive to light bilaterally. Assessment and Plan Encounter Diagnoses Name Primary? 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 Time was spent with the patient today in education in re: to all their medical conditions. A complete H&P&ROS was obtained and is either in this note or in the EHR. Please do not hesitate to contact me with any questions or concerns re: this patient. Past History Past medical, surgical, family, and social histories have been reviewed and updated with the patient today and are located elsewhere in the medical record. 2. Thank you for allowing me to participate in the care of your patient. With your permission I would like to F/U with your patient. 3. RF was elevated at > 720 4. Negative Celiac, HLA-B27, MPO, PR3, cANCA, pANCA, Hep A&B&C serology, ASMA, AMA 5. Patient told to stop smoking 6. Stop OTC IBP 7. Monitor CBC/LFT/Renal func every 6-12 months as long as patient is on daily NSAID 8. CCP was elevated at 89 9. TB was negative 10. Hold Enbrel 2 weeks before and 2 weeks after any surgery or live vaccine (shingles). Hold Enbrel anytime have an infection can restart once off of ATB and/or antiviral and free of infection. Hold Enbrel anytime there is an open wound can restart once wound has healed 11. Plaquenil stopped as could not afford the eye exams 12. Methotrexate stopped due to elevated LFT. 13. LIAT level was normal at 49 14. Atypical pANCA was elevated at 1:80 15. Rx given for PT/OT: because of the Enbrel patient did not start PT/OT 16. Rx given for Enbrel - again 17. Lab on or about 10/29/2021 18. F/u with me in 3 months 19. JACE was positive 20. C3 is normal at 153 21. C4 is normal at 29 22. Patient declines referral to chronic pain management 23. dosoquin 1 pill a day 24. Monitor Vit D level every 6 -12 months if remains low rec: eval by griselda 25. Glucose was elevated at 111 and patient is gong to F/U with PCP 26. Chloride was elevated at 112 27. CO2 was low at 20 28. Uric acid was normal at 4.4 29. ESR was elevated at 90 and is now normal at 16 30. CRP was elevated at 37.8 and still is at 1.3 31. TSH was elevated at 5.920 and patient is going to F/U with PCP 32. PLT count was elevated at 479,000 and is now normal at 325,000 33. 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 Rx given for Prednisone 5 mg 1 pill a day 35. Will try to decrease Prednisone at F/U visits 36. Lab on or about 11/28/2021 37. F/u with me in 4 months documented in this encounter [facility] 08-12-2021 Miscellaneous Notes Addended by: MEHUL BURNS on: 08/12/2021 12:03 PM Modules accepted: Orders documented in this encounter [facility] 08-12-2021 Note Addended by: MEHUL VARGAS on: 08/12/2021 12:03 PM Modules accepted: Orders [facility] 05-13-2021 History of Presen t illness Narrative History of Present Illness Enbrel started 2017. Enbrel was helping and not bothering the patient. Enbrel last dose 06/2020 and has been off of it ever since. enbrel started 02/2021. Enbrel is helping and not bothering her. Presence of Pain: complains of pain/discomfort Pain Location: hand, right, hand, left, shoulder, left, shoulder, right, back Select Pain Scale: DVPRS (Defense and Veterans Pain Rating Scale) (Adult-Cognitively Intact) DVPRS: Rest: 3- mild pain DVPRS: Activity: 3- mild pain Select Pain Scale: DVPRS (Defense and Veterans Pain Rating Scale) (Adult-Cognitively Intact) Pain Frequency: constant Pain Quality: aching. Total time spent in this encounter was 36 minutes. Patient seen as add on patient today. Energy level is eh. Mostly not good but sometimes ok. Weakness is no. Joint pain is ankles and shoulders and fingers. Back pain is yeah. Joint swelling is today hands are swollen. Neck pain is oh yeah. Patient is here for a 2 week F/U. Patient states she is having LARA hand and shoulder pain today. Patient states Enbrel is doing okay but does cause some discomfort during injecting. Patient states that she has more mobility and is doing a lot better since we have last seen her. I have been told that prednisone is a high risk medication. Patient is taking 10 mg of prednisone a day. Patient is still smoking. Review of Systems Constitutional: Positive for fatigue. HENT: Negative. Eyes: Negative. Respiratory: Negative. Cardiovascular: Negative. Gastrointestinal: Negative. Endocrine: Negative. Genitourinary: Negative. Musculoskeletal: Positive for arthralgias, back pain, joint swelling, neck pain and neck stiffness. Skin: Negative. Allergic/Immunologic: Negative. Hematological: Negative. Psychiatric/Behavioral: Negative. Vitals: There were no vitals taken for this visit. Physical Exam Vitals and nursing note reviewed. Constitutional: Appearance: Normal appearance. HENT: Head: Normocephalic and atraumatic. Comments: Blue hair Right Ear: External ear normal. Left Ear: External ear normal. Nose: Nose normal. Mouth/Throat: Comments: mask Eyes: Extraocular Movements: Extraocular movements intact. Conjunctiva/sclera: Conjunctivae normal. Pupils: Pupils are equal, round, and reactive to light. Comments: glasses Cardiovascular: Rate and Rhythm: Normal rate and regular rhythm. Pulses: Radial pulses are 2+ on the right side and 2+ on the left side. Heart sounds: Normal heart sounds. Comments: Pulmonary: Effort: Pulmonary effort is normal. Breath sounds: Normal breath sounds. Abdominal: General: Bowel sounds are normal. Palpations: Abdomen is soft. Musculoskeletal: Right shoulder: Tenderness and bony tenderness present. Decreased range of motion. Left shoulder: Tenderness and bony tenderness present. Decreased range of motion. Right upper arm: Tenderness present. Left upper arm: Tenderness present. Right elbow: Normal. Left elbow: Normal. Right forearm: Normal. Left forearm: Normal. Right wrist: Swelling, effusion, tenderness and bony tenderness present. Decreased range of motion. Left wrist: Swelling, effusion, tenderness and bony tenderness present. Decreased range of motion. Right hand: Tenderness and bony tenderness present. Decreased range of motion. Decreased strength. Left hand: Tenderness and bony tenderness present. Decreased range of motion. Decreased strength. Cervical back: Neck supple. Right upper leg: Normal. Left upper leg: Normal. Right knee: Bony tenderness present. Decreased range of motion. Tenderness present. Left knee: Bony tenderness present. Decreased range of motion. Tenderness present. Right lower leg: Normal. Left lower leg: Normal. Right ankle: Tenderness present. Decreased range of motion. Left ankle: Tenderness present. Decreased range of motion. Skin: General: Skin is warm and dry. Neurological: Mental Status: She is alert and oriented to person, place, and time. Cranial Nerves: Cranial nerves are intact. Motor: Weakness present. Gait: Gait abnormal. 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 Behavior: Behavior normal. Thought Content: Thought content normal. Judgment: Judgment normal. Neurological Exam Mental Status Alert. Oriented to person, place, and time. Cranial Nerves CN II: Vision test: glasses. CN III, IV, : Extraocular movements intact bilaterally. Pupils equal round and reactive to light bilaterally. Gait Abnormal gait. 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 Assessment and Plan Encounter Diagnoses Name Primary? 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 Time was spent with the patient today in education in re: to all their medical conditions. A complete H&P&ROS was obtained and is either in this note or in the EHR. Please do not hesitate to contact me with any questions or concerns re: this patient. Past History Past medical, surgical, family, and social histories have been reviewed and updated with the patient today and are located elsewhere in the medical record. 2. Thank you for allowing me to participate in the care of your patient. With your permission I would like to F/U with your patient. 3. RF is elevated at > 720 4. Negative Celiac, HLA-B27, MPO, PR3, cANCA, pANCA, Hep A&B&C serology, ASMA, AMA 5. Patient told to stop smoking 6. Stop OTC IBP 7. Monitor CBC/LFT/Renal func every 6-12 months as long as patient is on daily NSAID 8. CCP is elevated at 89 9. TB is negative 10. Hold Enbrel 2 weeks before and 2 weeks after any surgery or live vaccine (shingles). Hold Enbrel anytime have an infection can restart once off of ATB and/or antiviral and free of infection. Hold Enbrel anytime there is an open wound can restart once wound has healed 11. Plaquenil stopped as could not afford the eye exams 12. Methotrexate stopped due to elevated LFT. 13. LIAT level is normal at 49 14. Atypical pANCA is elevated at 1:80 15. Rx given for PT/OT 16. If neck pain continues rec: eval by spinal surgery and/or chronic pain management 17. If patient continues to have trouble with back pain would rec: eval by spinal surgery and/or chronic pain management 18. If shoulder and wrist and hand and hip and knee problems continue rec: ortho eval 19. If foot and ankle problems continue rec: podiatry eval 20. JACE is positive 21. Patient given educational material on SLE in the form of a pamphlet from the arthritis foundation. Different treatment options were discussed with the patient today. 22. Low 25 hydroxy Vit D level at 24 with normal 1,25 dihydroxy Vit D level 23. Patient started on dosoquin 1 pill a day 24. Monitor Vit D level every 6 -12 months if remains low rec: eval by endo 25. Glucose is elevated at 111 and patient is gong to F/U with PCP 26. Chloride is elevated at 112 27. CO2 is low at 20 28. Uric acid is normal at 4.4 29. ESR is elevated at 90 30. CRP is elevated at 37.8 31. TSH is elevated at 5.920 and patient is going to F/U with PCP 32. PLT count is elevated at 479,000 33. DISTRIBUTOR SALES MANAGER is elevated at 1.7 34. X-rays back and neck 35. Lab on or about 07/30/2021 36. F/U with me in 3 months 37. Rx given for Prednisone 5 mg 2 pills a day for 1 month then 1 pill a day for 1 month then 1 pill every other day for 1 month then stop. documented in this encounter [facility] 01-28-2021 History of Presen t illness Narrative History of Present Illness Enbrel started 2017. Enbrel was helping and not bothering the patient. Enbrel last does 06/2020 and has been off of it ever since. Presence of Pain: complains of pain/discomfort Pain Location: (Everywhere) Select Pain Scale: DVPRS (Defense and Veterans Pain Rating Scale) (Adult-Cognitively Intact) DVPRS: Rest: 8- severe pain DVPRS: Activity: 8- severe pain Select Pain Scale: DVPRS (Defense and Veterans Pain Rating Scale) (Adult-Cognitively Intact) Pain Frequency: constant Pain Quality: aching. Total time spent in this encounter was 45 minutes. Patient is being evaluated for an unstable chronic illness that increase morbidity and mortality. Due to patient's coexisting health problems and co-morbidities treatment is and will be very difficult. Patient is a self referral for RA and OA. Patient was preciously seeing [employer] Dr. Bower in [place] for RA. Patient states she was on Enbrel SureClik for 1.5 year and it was helping with her RA. Patient states she has been without the Enbrel since 07/2020 because she could not get ahold of Dr. Bower office for a Rx. Patient states since she has been off the Enbrel she is having severe joint pain, swelling, decrease mobility, morning stiffness for 2-3 hours. Dx with RA 2016. Plaquenil started 2019. Plaquenil stopped as could not afford eye exams. Review of Systems Constitutional: Positive for fatigue. HENT: Negative. Eyes: Negative. Respiratory: Negative. Cardiovascular: Negative. Gastrointestinal: Negative. Endocrine: Negative. Genitourinary: Negative. Musculoskeletal: Positive for arthralgias, back pain, gait problem, joint swelling, neck pain and neck stiffness. Skin: Negative. Allergic/Immunologic: Negative. Neurological: Positive for weakness. Hematological: Negative. Psychiatric/Behavioral: Negative. Vitals: Blood pressure 138/88, pulse 78, temperature 98 F (36.7 C), temperature source Temporal, height 1.575 m (5' 2 ), weight 74.4 kg (164 lb), SpO2 98 %. Physical Exam Vitals and nursing note reviewed. Constitutional: Appearance: Normal appearance. HENT: Head: Normocephalic and atraumatic. Comments: Blue hair Right Ear: External ear normal. Left Ear: External ear normal. Nose: Nose normal. Mouth/Throat: Comments: mask Eyes: Extraocular Movements: Extraocular movements intact. Conjunctiva/sclera: Conjunctivae normal. Pupils: Pupils are equal, round, and reactive to light. Comments: glasses Cardiovascular: Rate and Rhythm: Normal rate and regular rhythm. Pulses: Carotid pulses are 2+ on the right side and 2+ on the left side. Radial pulses are 2+ on the right side and 2+ on the left side. Heart sounds: Normal heart sounds. Comments: No subclavian or carotid bruits . Did not take of shoes for exam. Pulmonary: Effort: Pulmonary effort is normal. Breath sounds: Normal breath sounds. Abdominal: General: Bowel sounds are normal. Palpations: Abdomen is soft. Musculoskeletal: Right shoulder: Tenderness and bony tenderness present. Decreased range of motion. Left shoulder: Tenderness and bony tenderness present. Decreased range of motion. Right upper arm: Tenderness present. Left upper arm: Tenderness present. Right elbow: Normal. Left elbow: Normal. Right forearm: Normal. Left forearm: Normal. Right wrist: Swelling, effusion, tenderness and bony tenderness present. Decreased range of motion. Left wrist: Swelling, effusion, tenderness and bony tenderness present. Decreased range of motion. Right hand: Swelling, tenderness and bony tenderness present. Decreased range of motion. Decreased strength. Left hand: Swelling, tenderness and bony tenderness present. Decreased range of motion. Decreased strength. Cervical back: Neck supple. Tenderness present. Decreased range of motion. Thoracic back: Tenderness present. Lumbar back: Tenderness present. Decreased range of motion. Right hip: Tenderness present. Decreased range of motion. Left hip: Tenderness present. Decreased range of motion. Right upper leg: Normal. Left upper leg: Normal. Right knee: Bony tenderness present. Decreased range of motion. Tenderness present. Left knee: Bony tenderness present. Decreased range of motion. Tenderness present. Right lower leg: Normal. Left lower leg: Normal. Right ankle: Swelling present. Tenderness present. Decreased range of motion. Left ankle: Swelling present. Tenderness present. Decreased range of motion. Skin: General: Skin is warm and dry. Neurological: Mental Status: She is alert and oriented to person, place, and time. Cranial Nerves: Cranial nerves are intact. Motor: Weakness present. Gait: Gait abnormal. 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 Behavior: Behavior normal. Thought Content: Thought content normal. Judgment: Judgment normal. Neurological Exam Mental Status Alert. Cranial Nerves CN II: Vision test: glasses. CN III, IV, : Extraocular movements intact bilaterally. Pupils equal round and reactive to light bilaterally. Assessment and Plan Encounter Diagnoses Name Primary? Rheumatoid arthritis involving multiple sites with positive rheumatoid factor Yes Obesity (BMI 30.0-34.9) Long-term use of high-risk medication shelter 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 systemic steroids shelter 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-steroidal anti-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 (NSAID) History of rheumatoid arthritis History of osteoarthritis Fatigue, unspecified type Family history of rheumatoid arthritis Family history of psoriasis in mother Family history of osteoporosis in mother Family history of osteoarthritis Family history of gout Family history of colitis Dorsalgia Chronic pain of both knees Chronic pain of both ankles Cervicalgia Bilateral foot pain Disorder of bone and cartilage Chronic pain of both shoulders Bilateral wrist pain Bilateral hip pain Bilateral hand pain 1. Time was spent with the patient today in education in re: to all their medical conditions. A complete H&P&ROS was obtained and is either in this note or in the EHR. Please do not hesitate to contact me with any questions or concerns re: this patient. Past History Past medical, surgical, family, and social histories have been reviewed and updated with the patient today and are located elsewhere in the medical record. 2. Thank you for allowing me to participate in the care of your patient. With your permission I would like to F/U with your patient. 3. Differenetial Diagnosis includes but is not limited to Autoimmune Disease, Connective Tissue Disease, Collagen Vascular Disorder, Infection, and Neoplasm. 4. Lab and F/U with me in 2 weeks 5. Patient told to stop smoking 6. Stop OTC IBP 7. Monitor CBC/LFT/Renal func every 6-12 months as long as patient is on daily NSAID 8. Rx given for Sulindac 200 mg 1 or 2 pills a day 9. Patient was given educational material on RA. Different treatment options were discussed with the patient today. Patient should get the Shingrix vaccine if not already done 10. Hold Enbrel 2 weeks before and 2 weeks after any surgery or live vaccine (shingles). Hold Enbrel anytime have an infection can restart once off of ATB and/or antiviral and free of infection. Hold Enbrel anytime there is an open wound can restart once wound has healed 11. Plaquenil stopped as could not afford the eye exams 12. Methotrexate stopped due to elevated LFT. 13. Rx given for Prednisone 5 mg 4 pills a day for 2 weeks then 3 pills a day thereafter 14. Patient given educational material on OA in the from of a pamphlet from the arthritis foundation. Patient told that PT and keeping ideal body wt would be the cornerstone of treatment 15. Rx given for PT/OT - hold 16. If neck pain continues rec: eval by spinal surgery and/or chronic pain management 17. If patient continues to have trouble with back pain would rec: eval by spinal surgery and/or chronic pain management 18. If shoulder and wrist and hand and hip and knee problems continue rec: ortho eval 19. X-rays - will hold 20. If foot and ankle problems continue rec: podiatry eval documented in this encounter [facility] 08-28-2019 Note PROCEDURE: ANKLE RIG HT COMPLETE, 08/28/2019 1:52 PM EDT CLINICAL INDICATIONS: Right ankle joint pain. COMPARISON: None TECHNIQUE: Right ankle, 2 views FINDINGS: Acute fracture or bone destruction are not evident. Joint space preserved. Ankle mortise intact. Dorsal plantar calcaneal enthesopathy is noted. No ankle effusion seen. Regional soft tissues normal. IMPRESSION: 1. No acute osseous pathology. 2. Calcaneal enthesopathy. [facility] documented in this encounter [facility]* Diagnosis Rheumatoid arthritis involving multiple sites with positive rheumatoid factor- Primary Systemic lupus erythematosus, unspecified SLE type, unspecified organ involvement status ESR raised Elevated sedimentation rate Thrombocytosis Essential thrombocythemia Abnormal ANCA test Other and unspecified nonspecific immunological findings JACE positive Other and unspecified nonspecific immunological findings Anti-cyclic citrullinated peptide antibody positive Other and unspecified nonspecific immunological findings Anti-DISTRIBUTOR SALES MANAGER antibodies present Other and unspecified nonspecific immunological findings Family history of colitis Family history of other digestive disorders Family history of gout Family history of other endocrine and metabolic diseases Family history of osteoarthritis Family history of other musculoskeletal diseases Family history of osteoporosis in mother Family history of psoriasis in mother Family history of rheumatoid arthritis Family history of arthritis History of osteoarthritis Personal history of arthritis History of rheumatoid arthritis 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) Encounter for long-term (current) use of non-steroidal anti-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 shelter 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 systemic steroids Encounter for long-term (current) use of steroids Long-term use of high-risk medication Rheumatoid factor positive Other and unspecified nonspecific immunological findings TSH elevation Other abnormal blood chemistry Vitamin D deficiency Unspecified vitamin D deficiency Hyperchloremia Electrolyte and fluid disorders not elsewhere classified Hyperglycemia Other abnormal glucose Hypothyroidism, unspecified type Metabolic acidosis Acidosis Cervicalgia Dorsalgia Pain in thoracic spine documented in this encounter [facility]* Diagnosis Rheumatoid arthritis involving multiple sites with positive rheumatoid factor Systemic lupus erythematosus, unspecified SLE type, unspecified organ involvement status ESR raised Elevated sedimentation rate Thrombocytosis Essential thrombocythemia Abnormal ANCA test Other and unspecified nonspecific immunological findings JACE positive Other and unspecified nonspecific immunological findings Anti-cyclic citrullinated peptide antibody positive Other and unspecified nonspecific immunological findings Anti-DISTRIBUTOR SALES MANAGER antibodies present Other and unspecified nonspecific immunological findings Family history of colitis Family history of other digestive disorders Family history of gout Family history of other endocrine and metabolic diseases Family history of osteoarthritis Family history of other musculoskeletal diseases Family history of osteoporosis in mother Family history of psoriasis in mother Family history of rheumatoid arthritis Family history of arthritis History of osteoarthritis Personal history of arthritis History of rheumatoid arthritis Personal history of arthritis shelter 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-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 anti-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 (NSAID) Encounter for long-term (current) use of non-steroidal anti-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 Encounter for long-term (current) use of steroids Long-term use of high-risk medication Rheumatoid factor positive Other and unspecified nonspecific immunological findings TSH elevation Other abnormal blood chemistry Vitamin D deficiency Unspecified vitamin D deficiency Hyperchloremia Electrolyte and fluid disorders not elsewhere classified Hyperglycemia Other abnormal glucose Hypothyroidism, unspecified type Metabolic acidosis Acidosis Cervicalgia Dorsalgia Pain in thoracic spine documented in this encounter [facility]* Diagnosis Rheumatoid arthritis involving multiple sites with positive rheumatoid factor- Primary Systemic lupus erythematosus, unspecified SLE type, unspecified organ involvement status Abnormal ANCA test Other and unspecified nonspecific immunological findings JACE positive Other and unspecified nonspecific immunological findings Anti-cyclic citrullinated peptide antibody positive Other and unspecified nonspecific immunological findings Anti-DISTRIBUTOR SALES MANAGER antibodies present Other and unspecified nonspecific immunological findings Family history of colitis Family history of other digestive disorders Family history of gout Family history of other endocrine and metabolic diseases Family history of osteoarthritis Family history of other musculoskeletal diseases Family history of osteoporosis in mother Family history of psoriasis in mother Family history of rheumatoid arthritis Family history of arthritis History of osteoarthritis Personal history of arthritis History of rheumatoid arthritis Personal history of arthritis shelter 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-steroidal anti-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 (NSAID) Encounter for long-term (current) use of non-steroidal anti-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 Encounter for long-term (current) use of steroids Long-term use of high-risk medication Rheumatoid factor positive Other and unspecified nonspecific immunological findings Vitamin D deficiency Unspecified vitamin D deficiency DDD (degenerative disc disease), cervical Degeneration of cervical intervertebral disc 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 Obesity (BMI 30.0-34.9) Obesity, unspecified Fatigue, unspecified type Dorsalgia Pain in thoracic spine Chronic pain of both knees Chronic pain of both ankles Cervicalgia Bilateral foot pain Pain in limb Disorder of bone and cartilage Disorder of bone and cartilage, unspecified Chronic pain of both shoulders Pain in joint, shoulder region Bilateral wrist pain Bilateral hip pain Pain in joint, pelvic region and thigh Bilateral hand pain Pain in limb documented in this encounter [facility]* Diagnosis Rheumatoid arthritis involving multiple sites with positive rheumatoid factor- Primary Systemic lupus erythematosus, unspecified SLE type, unspecified organ involvement status Abnormal ANCA test Other and unspecified nonspecific immunological findings JACE positive Other and unspecified nonspecific immunological findings Anti-cyclic citrullinated peptide antibody positive Other and unspecified nonspecific immunological findings Anti-DISTRIBUTOR SALES MANAGER antibodies present Other and unspecified nonspecific immunological findings Family history of colitis Family history of other digestive disorders Family history of gout Family history of other endocrine and metabolic diseases Family history of osteoarthritis Family history of other musculoskeletal diseases Family history of osteoporosis in mother Family history of psoriasis in mother Family history of rheumatoid arthritis Family history of arthritis Other microscopic hematuria History of osteoarthritis Personal history of arthritis History of rheumatoid arthritis 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) Encounter for long-term (current) use of non-steroidal anti-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 Encounter for long-term (current) use of steroids Long-term use of high-risk medication Rheumatoid factor positive Other and unspecified nonspecific immunological findings Vitamin D deficiency Unspecified vitamin D deficiency Hyperglycemia Other abnormal glucose DDD (degenerative disc disease), cervical Degeneration of cervical intervertebral disc 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 documented in this encounter [facility] Summary Purpose Family History No Family History Records FoundNo Family History Records FoundNo Family History Records FoundNo Family History Records FoundNo Family History Records FoundNo Family History Records Found Advance Directives No Advanced Directives Records FoundNo Advanced Directives Records FoundNo Advanced Directives Records FoundNo Advanced Directives Records FoundNo Advanced Directives Records FoundNo Advanced Directives Records Found Reason for Referral Specialty Diagnoses / Procedures Referred By Rowena dickens Referred To Contact Occupational Therapy Diagnoses Rheumatoid arthritis involving multiple sites with positive rheumatoid factor Systemic lupus erythematosus, unspecified SLE type, unspecified organ involvement status ESR raised Thrombocytosis Abnormal ANCA test JACE positive Anti-cyclic citrullinated peptide antibody positive Anti-DISTRIBUTOR SALES MANAGER antibodies present Family history of colitis Family history of gout Family history of osteoarthritis Family history of osteoporosis in mother Family history of psoriasis in mother Family history of rheumatoid arthritis History of osteoarthritis History of rheumatoid arthritis shelter 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-steroidal anti-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 (NSAID) shelter 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 systemic steroids Long-term use of high-risk medication Rheumatoid factor positive TSH elevation Vitamin D deficiency Hyperchloremia Hyperglycemia Hypothyroidism, unspecified type Metabolic acidosis Cervicalgia Dorsalgia Katy Esteves, Mehul Antonio, [address] [place] [address] Referral ID Status Reason Start Date Expiration Date V isits Requested Visits Authorized [id number] New Request 05/13/2021 06/07/2022 1 1 Scheduling Instructions . Specialty Diagnoses / Procedures Referred By Rowena dickens Referred To Contact Physical Therapy Diagnoses Rheumatoid arthritis involving multiple sites with positive rheumatoid factor Systemic lupus erythematosus, unspecified SLE type, unspecified organ involvement status ESR raised Thrombocytosis Abnormal ANCA test JACE positive Anti-cyclic citrullinated peptide antibody positive Anti-DISTRIBUTOR SALES MANAGER antibodies present Family history of colitis Family history of gout Family history of osteoarthritis Family history of osteoporosis in mother Family history of psoriasis in mother Family history of rheumatoid arthritis History of osteoarthritis History of rheumatoid arthritis shelter 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 Long-term use of high-risk medication Rheumatoid factor positive TSH elevation Vitamin D deficiency Hyperchloremia Hyperglycemia Hypothyroidism, unspecified type Metabolic acidosis Cervicalgia Dorsalgia Katy Esteves, Mehul Antonio, [address] [place] [address] Referral ID Status Reason Start Date Expiration Date V isits Requested Visits Authorized [id number] New Request 05/13/2021 06/07/2022 1 1 Additional Source Comments INFORMATION SOURCE (unrecogn ized section and content) DATE CREATED AUTHOR AUTHOR'S ORGANIZ ATION 02/05/2021 [facility] DATE CREATED AUTHOR AUTHOR'S ORGANIZ ATION 12/10/2021 [facility] DATE CREATED AUTHOR AUTHOR'S ORGANIZ ATION 02/06/2022 [facility] DATE CREATED AUTHOR AUTHOR'S ORGANIZ ATION 10/10/2022 [facility] [place] DATE CREATED AUTHOR AUTHOR'S ORGANIZ ATION 10/13/2022 [facility] ntcarlos Reason for Visit (unrecogniz ed section and content) Reason Comments Joint Pain Patient is here for a 2 week F/U. Patient states she is having LARA hand and shoulder pain today. Patient states Enbrel is doing okay but does cause some discomfort during injecting. Patient states that she has more mobility and is doing a lot better since we have last seen her. Reason Comments Joint Pain Patient is here toda y for her 3 Month F/U. Patient states she has not Inés due to insurance issues. Patient states she is having joint pain everyday since she has been off the Enbrel. Patient states she is having severe swelling and joint pain. Patient states she is wanting a Handicap Placard. Reason Comments Joint Pain Patient is here toda y for her 4 Month F/U. Patient states she received her Enbrel 09/28/21 and started feeling better. Patient states she is having LARA finger and ankle pain and swelling. Patient states the Prednisone 5mg does not seem to be working anymore. 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 This clinical summary was aggregated from multiple sources. Caution should be exercised in using it in the provision of clinical care. This summary normalizes information from multiple sources, and as a consequence, information in this document may materially change the coding, format and clinical context of patient data. In addition, data may be omitted in some cases. CLINICAL DECISIONS SHOULD BE BASED ON THE PRIMARY CLINICAL RECORDS. [facility] [employer] provides no warranty or guarantee of the accuracy or completeness of information in this document.
--- NOTE | 2023-02-11 09:00 | US_ITS ---
STUDY: ABDOMINAL ULTRASOUND - RIGHT UPPER QUADRANT; ELASTOGRAPHY REASON FOR VISIT: Female, 57 years old. Fatty infiltration of the liver. TECHNIQUE: Ultrasound evaluation of the right upper quadrant was performed with real-time and static macias-scale imaging. Point quantification shear wave elastography was performed (foodj[employer]). TECHNICAL QUALITY: Adequate. COMPARISON: None. FINDINGS: Liver: The liver measures 18.3 cm. There is increased echogenicity consistent with fatty infiltration. The bile ducts are within normal limits. There is hepatic color flow. The direction of portal flow is hepatopetal. There is no demonstrated mass lesion. Median liver stiffness measured 6.2 kPa. Gallbladder: Normal distended gallbladder. The gallbladder wall measures 1.5 mm. There is a negative sonographic Valencia''s sign. There is no pericholecystic fluid. There are no gallstones. Common Bile Duct (C.B.D.): The common bile duct measures 3.7 mm. Pancreas: There is normal echogenicity of the visualized pancreas. There is no demonstrated pancreatic mass or cyst. Right Kidney: Normal size of the right kidney. The right kidney measures 10.7 cm x 4.7 cm x 3.7 cm. Normal renal cortex. The right cortex measures 0.9 cm. There is no demonstrated renal mass or cyst. There is no right hydronephrosis. US/ABD Limited w/ Elastography IMPRESSION: 1. Liver stiffness measures 6.2 kPa compatible with F2-F3 (Mild to moderate liver fibrosis) Metavir score. Electronically Signed: Markus Dubose MD at 9:55 EST ,
[2023-02-12 09:07] LABS: HEPATITIS B SURFACE AG Negative (Negative); Hep C Antibodies Non Reactive (Non Reactive); Hepatitis A IgM Antibody Negative (Negative); Hepatitis B Core AB IgM Negative (Negative)
== END | disposition home or self-care (01) ==
LOC: US 08:42
PROVIDERS: PCP Family Medicine Geriatric Medicine; Referring Provider Family Medicine Geriatric Medicine; Visit Provider Family Medicine Geriatric Medicine
DX: K76.0 Fatty (change of) liver, not elsewhere classified (principal); B18.0 Chronic viral hepatitis B with delta-agent
CPT/HCPCS: 36415; 76705; 76981; 80074

== ENCOUNTER → 2023-02-24 | Outpatient (CLI) | payer BC, SELFPAY ==
--- OUTSIDE RECORDS SUMMARY | 2023-02-24 11:49 | XMS RPT_ITS | CCD ---
Author Name Unknown Address [address] [facility] [address] [place] [address] Organization [facility] Care Team Providers Care Animal Daycare Provider Name Role Phone BERRY BOWER MD Admitting Unavailable BERRY BOWER MD Consulting Unavailable BERRY BOWER MD Attending Unavailable SARAH, DR AMBROCIO Primary Care Unavailable SARAH, DR AMBROCIO Consulting Unavailable BERRY BOWER MD Admitting Unavailable BERRY BOWER MD Consulting Unavailable BERRY BOWER MD Attending Unavailable NONE, NONE Primary Care Unavailable Cristóbal Ibarra MD Primary Care Provider Cristóbal Ibarra MD Primary Care Provider [phone] MEHUL BURNS JR Attending Unavailable CRISTÓBAL IBARRA [...] Unavailable MELBA ADAMS DO Admitting Unavailable MELBA ADAMS DO Primary Care Unavailable CRISTÓBAL IBARRA MD [...] Facility NSAIDs (1 source) Ketorolac Drug Allergy [facility] Repository (6 sources) Erythromycin Drug Allergy 01-28-2021 [facility] (7 sources) Ketorolac; 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: [KETOROLAC] Drug Allergy 01-28-2021 [facility] (1 source) Erythromycin Drug Allergy [facility] Repository (1 source) Ketorolac Drug Allergy [facility] Repository (1 source) Azithromycin; 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: [AZITHROMYCIN] Drug Allergy 07-24-2022 [facility] Repository Medications Current Medications Medication Drug Class(es) [...] , Anti-cyclic citrullinated peptide antibody positive , Anti-MASH FILTER OPERATOR antibodies present , Family history of colitis , Family history of gout , Family history of osteoarthritis , Family history of osteoporosis in mother , Family history of psoriasis in mother , Family history of rheumatoid arthritis , History of osteoarthritis , History of rheumatoid arthritis , 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) , care home 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 systemic steroids , Long-term [...] osteoarthritis , History of rheumatoid arthritis , care home 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-steroidal anti-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 (NSAID) , care home 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 systemic steroids , Long-term [...] sources) H/O: high risk medication; 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: [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] Onset: 01-28-2021 Episodic Other aftercare (12 sources) Long-term 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 systemic steroid; 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: [care home (current) use of systemic steroids] Onset: 01-28-2021 Episodic Other aftercare (12 sources) Patient encounter status; 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: [care home (current) use of non-steroidal anti-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 (NSAID)] Onset: [...] 08-12-2021 Episodic Other aftercare (4 sources) Other intermediate (current) drug therapy; 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: [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] Onset: 08-03-2020 Episodic Other aftercare (2 sources) care home (current) use of non-steroidal anti-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 (NSAID); 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: [care home (current) use of non-steroidal anti-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 (nsaid)] Onset: 01-28-2021 Episodic Other aftercare (3 sources) care home (current) use of systemic steroids; 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: [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] Onset: 01-28-2021 [...] cm Mehul Stainbrook Jr., DO [facility] 12-09-2021 12:38-0400 Body mass index (BMI) [Ratio] 30 kg/m2 Mehul Burns Jr., DO Work Phone: [facility] 12-09-2021 12:38-0400 Body temperature 98.01 [degF] Mehul Burns Jr., DO Work Phone: [facility] 12-09-2021 12:38-0400 Body weight 74.39 kg Mehul Burns Jr., DO Work Phone: [facility] 12-09-2021 12:38-0400 Diastolic blood pressure 78 mm[Hg] Mehul Burns Jr., DO Work Phone: [facility] [employer] [facility] 12-09-2021 12:38-0400 Heart rate 93 /min Mehul Burns Jr., DO Work Phone: [facility] 12-09-2021 12:38-0400 SaO2% (BldA) [Mass fraction] 98 % Mehul Escobarrose marieraymundo Esteves, DO Work Phone: [facility] 12-09-2021 12:38-0400 Systolic blood pressure 124 mm[Hg] Mehul Burns Jr., DO Work Phone: [facility] 08-12-2021 11:18-0400 Body height 157.5 cm Mehul Burns Jr., DO Work Phone: [facility] 08-12-2021 11:18-0400 Body mass index (BMI) [Ratio] 30 kg/m2 Mehul Escobarrose marieraymundo Esteves, DO Work Phone: [employer] [facility] 08-12-2021 11:18-0400 Body temperature 98.01 [degF] Mehul Shawnrose marieraymundo Esteves, DO Work Phone: [employer] [facility] 08-12-2021 11:18-0400 Body weight 74.39 kg Mehul Shawnjusten Esteves, DO Work Phone: [facility] 08-12-2021 11:18-0400 Diastolic blood pressure 76 mm[Hg] Mehul Escobarrose marieraymundo LugoEtta, DO Work Phone: [facility] 08-12-2021 11:18-0400 Heart rate 84 /min Mehul Escobarrose marieraymundo LugoEtta, DO Work Phone: [facility] 08-12-2021 11:18-0400 SaO2% (BldA) [Mass fraction] 97 % Mehul Escobarrose marieraymundo LugoEtta, DO Work Phone: [facility] 08-12-2021 11:18-0400 Systolic blood pressure 128 mm[Hg] Mehul Burns Jr., DO Work Phone: [facility] 05-13-2021 09:07-0400 Body height 157.5 cm Mehul Burns Jr., DO Work Phone: [facility] 05-13-2021 09:07-0400 Body mass index (BMI) [Ratio] 30 kg/m2 Mehul Shawnjusten Esteves, DO Work Phone: [facility] 05-13-2021 09:07-0400 Body weight 74.39 kg Mehul Escobarrose marieraymundo LugoEtta, DO Work Phone: [facility] 05-13-2021 09:07-0400 Diastolic blood pressure 82 mm[Hg] Mehul Burns Jr., DO Work Phone: [facility] 05-13-2021 09:07-0400 Systolic blood pressure 118 mm[Hg] Mehul Burns Jr., DO Work Phone: [facility] 01-28-2021 10:26-0500 Body height 157.5 cm Mehul Burns Jr., DO Work Phone: [facility] 01-28-2021 10:26-0500 Body mass index (BMI) [Ratio] 30 kg/m2 Mehul Burns Jr., DO Work Phone: [email or web address] 01-28-2021 10:26-0500 Body temperature 98.01 [degF] Mehul Escobarjusten Esteves, DO Work Phone: [email or web address] 01-28-2021 10:26-0500 Body weight 74.39 kg Mehul Escobarjusten Esteves, DO Work Phone: [email or web address] 01-28-2021 10:26-0500 Diastolic blood pressure 88 mm[Hg] Mehul Burns Jr., DO Work Phone: [email or web address] 01-28-2021 10:26-0500 Heart rate 78 /min Mehul Escobarjusten Esteves, DO Work Phone: [facility] 01-28-2021 10:26-0500 SaO2% (BldA) [Mass fraction] 98 % Mehul Burns Jr., DO Work Phone: [facility] 01-28-2021 10:26-0500 Systolic blood pressure 138 mm[Hg] Mehul Escobarjusten Esteves, DO Work Phone: [facility] Encounters Encounter Date Encounter Type Care Provider Facility Start: 10-10-2022 End: 10-10-2022 ambulatory [facility] Start: 09-02-2022 ambulatory HELENE HAWLEY [facility] Start: 08-29-2022 End: 08-29-2022 ambulatory HELENE [facility] Start: 08-15-2022 End: 08-15-2022 [facility] Start: 08-09-2022 End: 08-09-2022 ambulatory KATIE WYNN Facility:[id number] Start: 07-24-2022 Evaluation and management of inpatient EDDA VALENCIA Facility:[id number] Start: 07-23-2022 Encounter for genera l adult medical examination without abnormal findings [facility] Start: 07-23-2022 ambulatory CRISTÓBAL MD [facility] Start: 07-23-2022 End: 07-24-2022 Emergency department patient visit CRISTÓBAL HAWLEY [facility] Start: 07-21-2022 End: 07-21-2022 Emergency department patient visit CRISTÓBAL HAWLEY [facility] Start: 06-22-2022 End: 06-22-2022 ambulatory [facility] Start: 01-31-2022 ambulatory [facility] Start: 01-25-2022 End: 01-25-2022 ambulatory [facility] Start: 12-09-2021 ambulatory [facility] Start: 12-09-2021 End: 12-09-2021 Office outpatient visit 25 minutes Mehul Burns DO Work Phone: [facility] Procedures Date Procedure Procedure Detail Performing Clinician Start: 07-24-2022 Urinalysis HELENE SANDERS Plan of Treatment Date Care Activity Detail Author Start: 05-30-2022 End: 12-09-2022 VITAMIN D (25-HYDROXY,TOTAL) VITAMIN D (25-HYDROXY,TOTAL) Lab Routine Rheumatoid arthritis involving multiple sites with positive rheumatoid factor Systemic lupus erythematosus, unspecified SLE type, unspecified organ involvement status Abnormal ANCA test JACE positive Anti-cyclic citrullinated peptide antibody positive Anti-MASH FILTER OPERATOR antibodies present Family history of colitis Family history of gout Family history of osteoarthritis Family history of osteoporosis in mother Family history of psoriasis in mother Family history of rheumatoid arthritis Other microscopic hematuria History of osteoarthritis History of rheumatoid arthritis 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) care home 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 systemic steroids Long-term use of high-risk medication Rheumatoid factor positive Vitamin D deficiency Hyperglycemia DDD (degenerative disc disease), cervical 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 Expected: 05/30/2022 (Approximate), Expires: 12/09/2022 [facility] Payers Date Payer Category Payer Unknown NANCY CRUZ O PPO POS [id number] 2020-Present [address] [place] [address] [id number] 2020 Unknown ANTHEM ANTHEM HM O PPO POS [id number] 2020-Present [address] [place] [address] [id number] 2020 Unknown [id number] 1967 Unknown [id number] 2.16.840.1.401241.3.579.2.419 1967 Unknown [id number] 2.16.840.1.801262.3.579.2.419 1967 Unknown [id number] 2.16.840.1.767218.3.579.2.983 1967 Unknown [id number] 2.16.840.1.195507.3.579.2.983 1967 Unknown [id number] 2.16.840.1.753672.3.579.2.983 1967 Unknown [id number] 2.16.840.1.660443.3.579.2.983 1967 Unknown [id number] 2.16.840.1.081616.3.579.2.983 1967 Unknown [id number] 2.16.840.1.823853.3.579.2.983 1967 Unknown [id number] 2.16.840.1.189024.3.579.2.983 1967 Unknown [id number] 2.16.840.1.081203.3.579.2.983 1967 Unknown [id number] 2.16.840.1.091124.3.579.2.983 1967 Unknown [id number] 2.16.840.1.264240.3.579.2.983 1967 Unknown [id number] 2.16.840.1.036472.3.579.2.983 1967 Unknown [id number] 2.16.840.1.719658.3.579.2.983 1967 Unknown [id number] 2.16.840.1.202996.3.579.2.983 1967 Unknown [id number] 2.16.840.1.453522.3.579.2.983 1967 Unknown [id number] 2.16.840.1.743387.3.579.2.651 1967 Unknown [id number] 2.16.840.1.992949.3.579.2.65 1967 Unknown [id number] 2.16.840.1.791663.3.579.2.65 1967 Unknown [id number] 2.16.840.1.461233.3.579.2.65 1967 Unknown [id number] 2.16.840.1.999868.3.579.2.651 1967 Unknown [id number] 2.16.840.1.772261.3.579.2. 1967 Unknown [id number] 2.16.840.1.580660.3.579.2.651 1967 Unknown [id number] 2.16.840.1.814595.3.579.2.651 1967 Unknown [id number] 2.16.840.1.202678.3.579.2.651 1967 Unknown [id number] 2.16.840.1.108194.3.579.2.65 1967 Unknown [id number] 2.16.840.1.869697.3.579.2.651 1967 Unknown [id number] 2.16.840.1.533796.3.579.2.65 1967 Unknown [id number] 2.16.840.1.904656.3.579.2.651 1967 Unknown [id number] 2.16.840.1.283383.3.579.2.651 Medicaid [id number] Unknown [id number] Social History Date Type Detail Facility Start: 01-28-2021 [facility] [employer] [facility] History of tobacco use Cigarette Smoker [facility] [employer] [facility] Start: 01-28-2021 Cigarettes smoked current (pack per day) - Reported 0.5 [email or web address] Start: 01-28-2021 Tobacco use and exposure Smoke less tobacco non-user [facility] Start: 01-28-2021 End: 12-09-2021 Alcohol intake Lifetime non-drinker (finding) [facility] Start: 1965 Sex Assigned At [facility] on [facility] 08-28-2019 to 09-02-2022 Mehul Burns Jr., DO - 12/09/2021 1:00 PM EDTDavijamil Burns Jr., DO - 08/12/2021 11:30 AM EDTAddendum Note - Mehul Burns Jr., DO - 08/12/2021 11:30 AM EDT Note Date & Type Note Facility 09-02-2022 Note HNO ID: [id number] Author: Chin Tolentino RN Service: ? Author Type: Registered Nurse Type: Nursing Progress Note Filed: 09/02/2022 4:32 PM Note Text: Called spouses phone and left message. [facility] 09-02-2022 Note HNO ID: [id number] Author: Chin Tolentino RN Service: Nursing Author Type: Registered Nurse Type: Nursing Progress Note Filed: 09/02/2022 10:56 AM Note Text: Multiple calls have been made and voicemails left, no answer and no return call. [facility] 08-09-2022 Note HNO ID: [id number] Author: Katie Wynn MD Service: ? Author Type: Physician Type: Progress Notes Filed: 08/09/2022 2:58 PM Note Text: [facility] [place] ESTABLISHED PATIENT OFFICE VISIT HISTORY OF PRESENT [...] meaning may be extrapolated by contextual derivation. [facility] 08-09-2022 Note HNO ID: [id number] Author: RT Aj(R) Service: ? Author Type: Technologist Type: Progress Notes Filed: 08/09/2022 2:19 PM Note Text: Radiology Service Progress Note PATIENT NAME: Gregorai Wilcox DATE OF SERVICE: August 09, 2022 [...] Medeiros, RT(R) August 09, 2022 2:04 PM [facility] 07-26-2022 Note HNO ID: [id number] Author: Emiliana Núñez RN Service: Care Management [...] 26, 2022 TIME: 1:04 PM CONTACT #: [id number] [facility] 07-25-2022 Note HNO ID: [id number] Author: Lucy Flores APRN.PREVENTIVE MAINTENANCE ENGINEER Service: ? Author Type: Nurse Practitioner Type: [...] tab(s) (ULTRAM) 50 mg ORAL TID PRN Ktaie Wynn MD HYDROmorphone HCl 1 mg injection [...] 4.00 k/uL Monocytes % 11.1 % Abs Hopkins 0.97 (H) <0.87 k/uL Eosinophils % 0.8 % Abs Eosin 0.07 <0.46 k/uL Basophils % 0.3 % Abs Baso 0.03 <0.11 k/uL Immature Granulocytes % 0.2 % Abs Immature Gran <0.03 <0.10 k/uL NRBC 0.0 /100 WBC Absolute nRBC <0.01 <0.01 k/uL Diff Type Auto CBC (more content not included)... [facility] 07-25-2022 Note HNO ID: [id number] Author: Emiliana Núñez RN Service: Care Management [...] Home Advance Directives Current Advance Directive: None Board Mill Supervisor Attempted to Assist with AD Completion: Yes [...] Be able to go home, Less pain [place] of Choice Explained: [place] of Choice Given: No Reason Not Given: [...] 25, 2022 TIME: 3:04 PM CONTACT #: [id number] [facility] 07-25-2022 Note HNO ID: [id number] Author: Kavitha Andrews MD Service: Anesthesiology Author [...] July 25, 2022 TIME: 8:12 AM CSN: [id number] [facility] 07-24-2022 Note HNO ID: [id number] Author: Katie Wynn MD Service: Urology Author Type: Physician Type: Plan of Care Filed: 07/24/2022 6:43 PM Note Text: I was informed about the consult 1/2 an hour ago.patient ate 2 hours ago and she does not fit the criteria for sepsis according to the notes and lactate level. Will keep NPO and insert a left ureteral stent on her tomorrow [facility] 07-24-2022 Note HNO ID: [id number] Author: Liza Rowan APRN.SD Service: Hospital Medicine [...] medications resumed. HANDP reviewed from this morning. [facility] 12-09-2021 History of Presen t illness Narrative [...] are intact. Motor: Weakness present. 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 Behavior: Behavior normal. Thought Content: Thought content normal. Judgment: Judgment normal. Neurological Exam Mental Status Alert. Oriented to person, place, and time. Cranial Nerves CN II: Vision test: glasses. CN III, IV, : Extraocular movements intact bilaterally. Pupils equal round and reactive to light bilaterally. Decreased mixing and dispensing supervisor strength both hands. Assessment and Plan Encounter Diagnoses Name Primary? Rheumatoid arthritis involving multiple sites with positive rheumatoid factor Yes Systemic lupus erythematosus, unspecified SLE type, unspecified organ involvement status Abnormal ANCA test JACE positive Anti-cyclic citrullinated peptide antibody positive Anti-MASH FILTER OPERATOR antibodies present Family history of colitis Family history of gout Family history of osteoarthritis Family history of osteoporosis in mother Family history of psoriasis in mother Family history of rheumatoid arthritis Other microscopic hematuria History of osteoarthritis History of rheumatoid arthritis care home 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-steroidal anti-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 (NSAID) care home 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 systemic steroids Long-term use [...] F/U with me in 2 months 33. MASH FILTER OPERATOR was elevated at 1.7 34. Will try to decrease Prednisone at F/U visits 35. Repeat vit D level on or about 05/30/2022 with copy to PCP documented in this encounter [facility] 08-12-2021 History of Presen t illness [...] JACE positive Anti-cyclic citrullinated peptide antibody positive Anti-MASH FILTER OPERATOR antibodies present Family history of colitis Family history of gout Family history of osteoarthritis Family history of osteoporosis in mother Family history of psoriasis in mother Family history of rheumatoid arthritis History of osteoarthritis History of rheumatoid arthritis care home 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-steroidal anti-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 (NSAID) care home 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 systemic steroids Long-term use [...] and is now normal at 325,000 33. MASH FILTER OPERATOR was elevated at 1.7 34. Rx given for Prednisone 5 mg 1 pill a day 35. Will try to decrease Prednisone at F/U visits 36. Lab on or about 11/28/2021 37. F/u with me in 4 months documented in this encounter [facility] 08-12-2021 Miscellaneous Notes Addended by: MEHUL BURNS on: 08/12/2021 12:03 PM Modules accepted: Orders documented in this encounter [facility] 08-12-2021 Note Addended by: MEHUL VARGAS on: 08/12/2021 12:03 PM Modules accepted: Orders [facility] 05-13-2021 History of Presen t illness [...] Weakness present. Gait: Gait abnormal. Comments: decreased mixing and dispensing supervisor strength both hands Psychiatric: Mood and Affect: Mood normal. Behavior: Behavior normal. Thought Content: Thought content normal. Judgment: Judgment normal. Neurological Exam Mental Status Alert. Oriented to person, place, and time. Cranial Nerves CN II: Vision test: glasses. CN III, IV, : Extraocular movements intact bilaterally. Pupils equal round and reactive to light bilaterally. Gait Abnormal gait. decreased mixing and dispensing supervisor strength both hands. Assessment and Plan Encounter Diagnoses Name Primary? 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 MASH FILTER OPERATOR is elevated at 1.7 34. X-rays back and neck 35. Lab on or about 07/30/2021 36. F/U with me in 3 months 37. Rx given for Prednisone 5 mg 2 pills a day for 1 month then 1 pill a day for 1 month then 1 pill every other day for 1 month then stop. documented in this encounter [facility] 01-28-2021 History of Presen t illness [...] RA and OA. Patient was preciously seeing [facility] [facility] Dr. Bower in [place] for RA. Patient states she was on [...] Weakness present. Gait: Gait abnormal. 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 COMPARISON: None TECHNIQUE: Right ankle, 2 views FINDINGS: Acute fracture or bone destruction are not evident. Joint space preserved. Ankle mortise intact. Dorsal plantar calcaneal enthesopathy is noted. No ankle effusion seen. Regional soft tissues normal. IMPRESSION: 1. No acute osseous pathology. 2. Calcaneal enthesopathy. [facility] Rheumatoid arthritis involving multiple sites with positive rheumatoid factor- Primary Systemic lupus erythematosus, unspecified SLE type, unspecified organ involvement status ESR raised Elevated sedimentation rate Thrombocytosis Essential thrombocythemia Abnormal ANCA test Other and unspecified nonspecific immunological findings JACE positive Other and unspecified nonspecific immunological findings Anti-cyclic citrullinated peptide antibody positive Other and unspecified nonspecific immunological findings Anti-MASH FILTER OPERATOR antibodies present Other and unspecified nonspecific immunological [...] of rheumatoid arthritis Personal history of arthritis care home 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-steroidal anti-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 (NSAID) Encounter for long-term (current) use of non-steroidal anti-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 termite technician 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 systemic steroids Encounter for [...] in thoracic spine [facility] Diagnosis Rheumatoid arthritis involving multiple sites with positive rheumatoid factor Systemic lupus erythematosus, unspecified SLE type, unspecified organ involvement status ESR raised Elevated sedimentation rate Thrombocytosis Essential thrombocythemia Abnormal ANCA test Other and unspecified nonspecific immunological findings JACE positive Other and unspecified nonspecific immunological findings Anti-cyclic citrullinated peptide antibody positive Other and unspecified nonspecific immunological findings Anti-MASH FILTER OPERATOR antibodies present Other and unspecified nonspecific immunological [...] of rheumatoid arthritis Personal history of arthritis 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) Encounter for long-term (current) use of non-steroidal anti-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 termite technician 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 systemic steroids Encounter for [...] in thoracic spine [facility] Diagnosis Rheumatoid arthritis involving multiple sites with positive rheumatoid factor- Primary Systemic lupus erythematosus, unspecified SLE type, unspecified organ involvement status Abnormal ANCA test Other and unspecified nonspecific immunological findings JACE positive Other and unspecified nonspecific immunological findings Anti-cyclic citrullinated peptide antibody positive Other and unspecified nonspecific immunological findings Anti-MASH FILTER OPERATOR antibodies present Other and unspecified nonspecific immunological [...] of rheumatoid arthritis Personal history of arthritis 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) Encounter for long-term (current) use of non-steroidal anti-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 care home 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 systemic steroids Encounter for [...] Pain in limb documented in this encounter [facility] Rheumatoid arthritis involving multiple sites with positive rheumatoid factor- Primary Systemic lupus erythematosus, unspecified SLE type, unspecified organ involvement status Abnormal ANCA test Other and unspecified nonspecific immunological findings JACE positive Other and unspecified nonspecific immunological findings Anti-cyclic citrullinated peptide antibody positive Other and unspecified nonspecific immunological findings Anti-MASH FILTER OPERATOR antibodies present Other and unspecified nonspecific immunological [...] of rheumatoid arthritis Personal history of arthritis care home 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-steroidal anti-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 (NSAID) Encounter for long-term (current) use of non-steroidal anti-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 care home 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 systemic steroids Encounter for long-term (current) use of steroids Long-term use of high-risk medication Rheumatoid factor positive Other and unspecified nonspecific immunological findings Vitamin D deficiency Unspecified vitamin D deficiency Hyperglycemia Other abnormal glucose DDD (degenerative disc disease), cervical Degeneration of cervical intervertebral disc 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 documented in this encounter [facility] Summary Purpose Family History No Family [...] JACE positive Anti-cyclic citrullinated peptide antibody positive Anti-MASH FILTER OPERATOR antibodies present Family history of colitis Family history of gout Family history of osteoarthritis Family history of osteoporosis in mother Family history of psoriasis in mother Family history of rheumatoid arthritis History of osteoarthritis History of rheumatoid arthritis 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 Specialty Diagnoses / Procedures Referred By Rowena dickens Referred To Contact Physical Therapy Diagnoses Rheumatoid arthritis involving multiple sites with positive rheumatoid factor Systemic lupus erythematosus, unspecified SLE type, unspecified organ involvement status ESR raised Thrombocytosis Abnormal ANCA test JACE positive Anti-cyclic citrullinated peptide antibody positive Anti-MASH FILTER OPERATOR antibodies present Family history of colitis Family history of gout Family history of osteoarthritis Family history of osteoporosis in mother Family history of psoriasis in mother Family history of rheumatoid arthritis History of osteoarthritis History of rheumatoid arthritis care home 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-steroidal anti-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 (NSAID) care home 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 systemic steroids Long-term use of high-risk medication Rheumatoid factor positive TSH elevation Vitamin D deficiency Hyperchloremia Hyperglycemia Hypothyroidism, unspecified type Metabolic acidosis Cervicalgia Dorsalgia Katy Esteves, Mehul Antonio, [address] [place] [address] Referral ID Status Reason Start Date Expiration Date V isits Requested Visits Authorized [id number] New Request 05/13/2021 06/07/2022 1 1 Additional Source Comments INFORMATION SOURCE (unrecogn ized section and content) DATE CREATED AUTHOR AUTHOR'S ORGANIZ ATION 02/05/2021 [facility] DATE CREATED AUTHOR AUTHOR'S ORGANIZ ATION 12/10/2021 [facility] DATE CREATED AUTHOR AUTHOR'S ORGANIZ ATION 02/06/2022 [facility] DATE CREATED AUTHOR AUTHOR'S ORGANIZ ATION 10/10/2022 [facility] DATE CREATED AUTHOR AUTHOR'S ORGANIZ ATION 10/13/2022 [facility] [email or web address] Reason for Visit (unrecogniz ed [...] Care Teams (unrecognized sec tion and content) Animal Daycare Provider Relationship Specialty Start Date End Date Cristóbal Ibarra MD [address] [place] [address] PCP - General Family Medicine 08/31/20 Animal Daycare Provider Relationship Specialty Start Date End Date Cristóbal Ibarra MD [address] [facility] [address] [place] [address] PCP - General Family Medicine 08/31/20 Animal Daycare Provider Relationship Specialty Start Date End Date Cristó[place] [address] [place] [address] [address] [place] [address] PCP - General Family Medicine 08/31/20 Animal Daycare Provider Relationship Specialty Start Date End Date Cristóbal Ibarra MD [address] [facility] [address] [place] [address] PCP - General Family Medicine 08/31/20 FOR [...] BE BASED ON THE PRIMARY CLINICAL RECORDS. [facility] [employer] provides no warranty or guarantee of the accuracy or completeness of information in this document.
[2023-02-24 12:41] LABS: ALB/GLOB Ratio 0.9 RATIO (0.9-2.4); AST(SGOT) 28 U/L (15-37); Alanine Aminotransfer ALT/SGPT 50 U/L (13-56); Albumin, Serum 3.6 g/dL (3.2-5.0); Alkaline Phosphatase 71 U/L (45-117); Anion Gap 5 (5-15); BUN 12 mg/dL (7-18); BUN/Creat Ratio 10.7 RATIO (10-20); Calcium,Total 10.6 mg/dL (8.5-10.1); Chloride 105 mmol/L (98-107); Creatinine, Serum 1.12 mg/dL (0.55-1.02); EST Glomerular Filtration Rate 54 mL/min (>60); Est Glom Filt Rate - Afr Amer 65 mL/min (>60); Globulin 4.1 g/dL (2.2-4.2); Glucose 114 mg/dL (74-106); Potassium 5.1 mmol/L (3.5-5.1); Protein, Total 7.7 g/dL (6.4-8.2); Sodium Level 140 mmol/L (136-145)
== END | disposition home or self-care (01) ==
LOC: POLAB3 11:23
PROVIDERS: PCP Family Medicine Geriatric Medicine; Visit Provider Family Medicine Geriatric Medicine
DX: R74.8 Abnormal levels of other serum enzymes (principal); B18.0 Chronic viral hepatitis B with delta-agent
CPT/HCPCS: 36415; 80053

== ENCOUNTER → 2023-04-07 | Outpatient (CLI) | payer BC, SELFPAY ==
[2023-04-07 15:21] LABS: Absolute Lymphocyte Count 3.42 X10^3/uL (0.83-4.51); Absolute Neutrophil Count 6.3 X10^3/uL (2.0-7.7); Basophil# 0.06 X10^3/uL; Basophil% 0.6 % (0-1); Eosinophil# 0.07 X10^3/uL; Eosinophils% 0.7 % (0-5); Hematocrit 46.7 % (37-47); Hemoglobin 14.9 g/dL (12.0-15.0); Lymphocyte # 3.42 X10^3/ul (0.83-4.51); Mean Corp Hgb Conc 31.9 g/dL (32-36); Mean Corpuscular Hgb 29.7 pg (27.0-32.0); Mean Platelet Vol. 10.1 fl (6.2-12.0); Monocyte% 7.5 % (0-10); NRBC Flagged by Analyzer 0 % (0-5); Neutrophil % 58.9 % (47-70); Platelet Count 394 K/mm3 (150-450); RBC Distribution Width CV 12.3 % (11.6-14.6); Red Blood Count 5.02 M/mm3 (4.2-5.4); White Blood Count 10.7 K/mm3 (4.4-11.0)
[2023-04-07 15:53] LABS: ALB/GLOB Ratio 0.9 RATIO (0.9-2.4); AST(SGOT) 30 U/L (15-37); Alanine Aminotransfer ALT/SGPT 70 U/L (13-56); Albumin, Serum 3.6 g/dL (3.2-5.0); Alkaline Phosphatase 92 U/L (45-117); Anion Gap 3 (5-15); BUN 16 mg/dL (7-18); BUN/Creat Ratio 15.8 RATIO (10-20); Chloride 108 mmol/L (98-107); Creatinine, Serum 1.01 mg/dL (0.55-1.02); EST Glomerular Filtration Rate 60 mL/min (>60); Est Glom Filt Rate - Afr Amer 73 mL/min (>60); Globulin 4.1 g/dL (2.2-4.2); Glucose 108 mg/dL (74-106); Potassium 4.3 mmol/L (3.5-5.1); Protein, Total 7.7 g/dL (6.4-8.2); Sodium Level 141 mmol/L (136-145)
== END | disposition home or self-care (01) ==
LOC: MTLAB 11:39
PROVIDERS: PCP Family Medicine Geriatric Medicine; Referring Provider Internal Medicine Rheumatology; Visit Provider Internal Medicine Rheumatology
DX: M79.7 Fibromyalgia (principal); M05.79 Rheumatoid arthritis with rheumatoid factor of multiple sites without organ or systems involvement; Z79.899 Other long term (current) drug therapy
CPT/HCPCS: 36415; 80053; 85025

== ENCOUNTER → 2023-04-24 | Outpatient (CLI) | payer BC, SELFPAY ==
--- NOTE | 2023-04-24 16:30 | RAD_ITS ---
INDICATION: RHEUMATOID ARTHRITIS EXAMINATION/TECHNIQUE: X-RAY - XR Chest 2 Views COMPARISON: No previous relevant examinations available for comparison.. FINDINGS: LIFE-SUPPORT AND LINES: 1. None HEART AND VESSELS: The cardiac silhouette, pulmonary vasculature have normal appearance. No evidence of congestive failure. LUNGS AND PLEURAL SPACES: Lungs are clear. No focal infiltrate, consolidation or effusions. No evidence of pneumothorax. Mild interstitial prominence at the lung bases. No consolidation or effusion MEDIASTINUM AND HILAR REGIONS: No masses adenopathy noted. No areas of calcification. Visualized upper airway is normal in position. BONY ELEMENTS: No acute bony changes noted. RAD/Chest PA and Lateral IMPRESSION: 1. Mild interstitial prominence at the lung bases greater on the RIGHT than LEFT. No consolidation or effusion. 2. No evidence congestive failure. Electronically Signed: Piyush Krause MD at 23:24 EDT ,
--- OUTSIDE RECORDS SUMMARY | 2023-04-24 21:10 | XMS RPT_ITS | CCD ---
Author Name Unknown Address [address] [facility] [address] [place] [address] Organization [facility] Care Team Providers Care Tourist Home Keeper Name Role Phone BERRY BOWER MD Admitting Unavailable BERRY BOWER MD Consulting Unavailable BERRY BOWER MD Attending Unavailable SARAH, DR AMBROCIO Primary Care Unavailable SARAH, DR AMBROCIO Consulting Unavailable BERRY BOWER MD Admitting Unavailable BERRY BOWER MD Consulting Unavailable BERRY BOWER MD Attending Unavailable NONE, NONE Primary Care Unavailable Cristóbal Ibarra MD Primary Care Provider [phone] Cristóbal Ibarra MD Primary Care Provider MEHUL BURNS JR Attending Unavailable CRISTÓBAL IBARRA [...] Facility NSAIDs (1 source) Ketorolac Drug Allergy [facility] Repository (6 sources) Erythromycin Drug Allergy 01-28-2021 [facility] (7 sources) Ketorolac; 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: [KETOROLAC] Drug Allergy 01-28-2021 [facility] (1 source) Erythromycin Drug Allergy [facility] Repository (1 source) Ketorolac Drug Allergy [facility] Repository (1 source) Azithromycin; 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: [AZITHROMYCIN] Drug Allergy 07-24-2022 [facility] Repository Medications Current Medications Medication Drug [...] , Anti-cyclic citrullinated peptide antibody positive , Anti-APPLICATION INTEGRATION ENGINEER antibodies present , Family history of colitis , Family history of gout , Family history of osteoarthritis , Family history of osteoporosis in mother , Family history of psoriasis in mother , Family history of rheumatoid arthritis , History of osteoarthritis , History of rheumatoid arthritis , terminal 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-steroidal anti-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 (NSAID) , correction 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 systemic steroids , Long-term [...] osteoarthritis , History of rheumatoid arthritis , correction 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-steroidal anti-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 (NSAID) , terminal 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 systemic steroids , Long-term [...] sources) H/O: high risk medication; 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: [Other oil heaterman (current) drug therapy] Onset: 01-28-2021 Episodic Other aftercare (12 sources) Long-term 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 systemic steroid; 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: [correction (current) use of systemic steroids] Onset: 01-28-2021 Episodic Other aftercare (12 sources) Patient encounter status; 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: [correction (current) use of non-steroidal anti-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 (NSAID)] Onset: [...] 08-12-2021 Episodic Other aftercare (4 sources) Other assisted (current) drug therapy; 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: [OTH HVAC DESIGN MECHANICAL ENGINEER CURRENT DRUG THERAPY] Onset: 08-03-2020 Episodic Other aftercare (2 sources) terminal 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 (current) use of non-steroidal anti-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 (NSAID); 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: [correction (current) use of non-steroidal anti-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 (nsaid)] Onset: 01-28-2021 Episodic Other aftercare (3 sources) terminal 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 (current) use of systemic steroids; 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: [correction (current) use of systemic steroids] Onset: 01-28-2021 [...] cm Mehul Stainbrook Jr., DO [facility] Phone: [facility] 12-09-2021 12:38-0400 Body mass index (BMI) [Ratio] 30 kg/m2 Mehul Burns Jr., DO Work Phone: [facility] 12-09-2021 12:38-0400 Body temperature 98.01 [degF] Mehul Burns Jr., DO Work Phone: [facility] 12-09-2021 12:38-0400 Body weight 74.39 kg Mehul Burns Jr., DO [facility] Phone: [facility] 12-09-2021 12:38-0400 Diastolic blood pressure 78 mm[Hg] Mehul Burns Jr., DO Work Phone: [facility] 12-09-2021 12:38-0400 Heart rate 93 /min Mehul Burns Jr., DO Work Phone: [facility] 12-09-2021 12:38-0400 SaO2% (BldA) [Mass fraction] 98 % Mehul Escobarrose marieraymundo Esteves, DO Work Phone: [facility] 12-09-2021 12:38-0400 Systolic blood pressure 124 mm[Hg] Mehul Burns Jr., DO Work Phone: [facility] 08-12-2021 11:18-0400 Body height 157.5 cm Mehul Burns Jr., DO Work Phone: [employer] [facility] 08-12-2021 11:18-0400 Body mass index (BMI) [Ratio] 30 kg/m2 Mehul Escobarrose marieraymundo Esteves, DO Work Phone: [employer] [facility] 08-12-2021 11:18-0400 Body temperature 98.01 [degF] Mehul Shawnrose marieraymundo Esteves, DO Work Phone: [employer] [facility] 08-12-2021 11:18-0400 Body weight 74.39 kg Mehul Shawnjusten Esteves, DO Work Phone: [facility] 08-12-2021 11:18-0400 Diastolic blood pressure 76 mm[Hg] Mehul Escobarrose marieraymundo LugoEtta, DO Work Phone: [facility] 08-12-2021 11:18-0400 Heart rate 84 /min Mehul Escobarrose marieraymundo LugoEtta, DO Work Phone: [facility] 08-12-2021 11:18-0400 SaO2% (BldA) [Mass fraction] 97 % Mehul Escobarrose marieraymundo LugoEtta, DO Work Phone: [facility] 08-12-2021 11:18-0400 Systolic blood pressure 128 mm[Hg] Mehul Burns Jr., DO Work Phone: [facility] 05-13-2021 09:07-0400 Body height 157.5 cm Mehul Burns Jr., DO Work Phone: [facility] 05-13-2021 09:07-0400 Body mass index (BMI) [Ratio] 30 kg/m2 Mehul Shawnjusten Esteves, DO Work Phone: [facility] 05-13-2021 09:07-0400 Body weight 74.39 kg Mehul Escobarrose marieraymundo LugoEtta, DO Work Phone: [facility] 05-13-2021 09:07-0400 Diastolic blood pressure 82 mm[Hg] Mehul Burns Jr., DO Work Phone: [facility] 05-13-2021 09:07-0400 Systolic blood pressure 118 mm[Hg] Mehul Burns Jr., DO Work Phone: [facility] 01-28-2021 10:26-0500 Body height 157.5 cm Mehul Burns Jr., DO Work Phone: [facility] 01-28-2021 10:26-0500 Body mass index (BMI) [Ratio] 30 kg/m2 Mehul Burns Jr., DO Work Phone: [employer] 01-28-2021 10:26-0500 Body temperature 98.01 [degF] Mehul Escobarjusten Esteves, DO Work Phone: [employer] [facility] 01-28-2021 10:26-0500 Body weight 74.39 kg Mehul Escobarjusten Esteves, DO Work Phone: [employer] [facility] 01-28-2021 10:26-0500 Diastolic blood pressure 88 mm[Hg] Mehul Burns Jr., DO Work Phone: [employer] 01-28-2021 10:26-0500 Heart rate 78 /min Mehul Escobarjusten Esteves, DO Work Phone: [facility] 01-28-2021 10:26-0500 SaO2% (BldA) [Mass fraction] 98 % Mehul Burns Jr., DO Work Phone: [facility] 01-28-2021 10:26-0500 Systolic blood pressure 138 mm[Hg] Mehul Escobarjusten Esteves, DO Work Phone: [facility] Encounters Encounter Date Encounter Type Care Provider Facility Start: 10-10-2022 End: 10-10-2022 ambulatory HELENE [facility] Start: 09-02-2022 ambulatory HELENE HAWLEY [facility] Start: 08-29-2022 End: 08-29-2022 ambulatory HELENE HAWLEY [facility] Start: 08-15-2022 End: 08-15-2022 [facility] Start: 08-09-2022 End: 08-09-2022 ambulatory KATIE WYNN Facility:[id number] Start: 07-24-2022 Evaluation and management of inpatient EDDA VALENCIA Facility:[id number] Start: 07-23-2022 Encounter for genera l adult medical examination without abnormal findings [facility] Start: 07-23-2022 ambulatory CRISTÓBAL MD [facility] Start: 07-23-2022 End: 07-24-2022 Emergency department patient visit CRISTÓBAL HAWLEY [facility] Start: 07-21-2022 End: 07-21-2022 Emergency department patient visit CRISTÓBAL HAWLEY [facility] Start: 06-22-2022 End: 06-22-2022 ambulatory [facility] Start: 01-31-2022 ambulatory [facility] Start: 01-25-2022 End: 01-25-2022 ambulatory [facility] Start: 12-09-2021 ambulatory [facility] Start: 12-09-2021 End: 12-09-2021 Office outpatient visit 25 minutes Mehul Burns DO Work Phone: [facility] Rheumatology Procedures Date Procedure Procedure Detail Performing Clinician Start: 07-24-2022 Urinalysis HELENE SANDERS Plan of Treatment Date Care Activity Detail Author Start: 05-30-2022 End: 12-09-2022 VITAMIN D (25-HYDROXY,TOTAL) VITAMIN D (25-HYDROXY,TOTAL) Lab Routine Rheumatoid arthritis involving multiple sites with positive rheumatoid factor Systemic lupus erythematosus, unspecified SLE type, unspecified organ involvement status Abnormal ANCA test JACE positive Anti-cyclic citrullinated peptide antibody positive Anti-APPLICATION INTEGRATION ENGINEER antibodies present Family history of colitis Family history of gout Family history of osteoarthritis Family history of osteoporosis in mother Family history of psoriasis in mother Family history of rheumatoid arthritis Other microscopic hematuria History of osteoarthritis History of rheumatoid arthritis correction 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-steroidal anti-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 (NSAID) correction 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 systemic steroids Long-term use of high-risk medication Rheumatoid factor positive Vitamin D deficiency Hyperglycemia DDD (degenerative disc disease), cervical 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 Expected: 05/30/2022 (Approximate), Expires: 12/09/2022 [facility] System Payers Date Payer Category Payer Unknown NANCY CRUZ O PPO POS [id number] 2020-Present [address] [place] [address] [id number] 2020 Unknown ANTHEM ANTHEM HM O PPO POS [id number] 2020-Present [address] [place] [address] [id number] 2020 Unknown [id number] 1967 Unknown [id number] 2.16.840.1.132130.3.579.2.419 1967 Unknown [id number] 2.16.840.1.404255.3.579.2.419 1967 Unknown [id number] 2.16.840.1.352327.3.579.2.983 1967 Unknown [id number] 2.16.840.1.119749.3.579.2.983 1967 Unknown [id number] 2.16.840.1.401293.3.579.2.983 1967 Unknown [id number] 2.16.840.1.467134.3.579.2.983 1967 Unknown [id number] 2.16.840.1.472638.3.579.2.983 1967 Unknown [id number] 2.16.840.1.626402.3.579.2.983 1967 Unknown [id number] 2.16.840.1.416059.3.579.2.983 1967 Unknown [id number] 2.16.840.1.274842.3.579.2.983 1967 Unknown [id number] 2.16.840.1.545235.3.579.2.983 1967 Unknown [id number] 2.16.840.1.864270.3.579.2.983 1967 Unknown [id number] 2.16.840.1.407914.3.579.2.983 1967 Unknown [id number] 2.16.840.1.045098.3.579.2.983 1967 Unknown [id number] 2.16.840.1.769813.3.579.2.983 1967 Unknown [id number] 2.16.840.1.837985.3.579.2.983 1967 Unknown [id number] 2.16.840.1.388623.3.579.2.651 1967 Unknown [id number] 2.16.840.1.650349.3.579.2.65 1967 Unknown [id number] 2.16.840.1.672403.3.579.2.65 1967 Unknown [id number] 2.16.840.1.254929.3.579.2.65 1967 Unknown [id number] 2.16.840.1.950940.3.579.2.651 1967 Unknown [id number] 2.16.840.1.100979.3.579.2. 1967 Unknown [id number] 2.16.840.1.556429.3.579.2.651 1967 Unknown [id number] 2.16.840.1.865558.3.579.2.651 1967 Unknown [id number] 2.16.840.1.266344.3.579.2.651 1967 Unknown [id number] 2.16.840.1.611455.3.579.2.65 1967 Unknown [id number] 2.16.840.1.099196.3.579.2.651 1967 Unknown [id number] 2.16.840.1.109589.3.579.2.65 1967 Unknown [id number] 2.16.840.1.979277.3.579.2.651 1967 Unknown [id number] 2.16.840.1.463727.3.579.2.651 Medicaid [id number] Unknown [id number] Social History Date Type Detail Facility Start: 01-28-2021 [facility] History of tobacco use Cigarette Smoker [facility] Start: 01-28-2021 Cigarettes smoked current (pack per day) - Reported 0.5 [facility] Start: 01-28-2021 Tobacco use and exposure Smoke less tobacco non-user [facility] Start: 01-28-2021 End: 12-09-2021 Alcohol intake Lifetime non-drinker (finding) [facility] Start: 1965 Sex Assigned At [facility] on file [facility] 08-28-2019 to 09-02-2022 Mehul Burns Jr., DO - 12/09/2021 1:00 PM EDTDavijamil Burns Jr., DO - 08/12/2021 11:30 AM EDTAddendum Note - Mehul Burns Jr., DO - 08/12/2021 11:30 AM EDT Note Date & Type Note Facility 09-02-2022 Note HNO ID: [id number] Author: Chin Tolentino RN Service: ? Author Type: Registered Nurse Type: Nursing Progress Note Filed: 09/02/2022 4:32 PM Note Text: Called spouses phone and left message. [facility] 09-02-2022 Note HNO ID: [id number] Author: Chin Tolentino RN Service: Nursing Author Type: Registered Nurse Type: Nursing Progress Note Filed: 09/02/2022 10:56 AM Note Text: Multiple calls have been made and voicemails left, no answer and no return call. [facility] 08-09-2022 Note HNO ID: [id number] Author: Katie Wynn MD Service: ? Author Type: Physician Type: Progress Notes Filed: 08/09/2022 2:58 PM Note Text: [facility] [place] ESTABLISHED PATIENT OFFICE VISIT HISTORY OF PRESENT [...] meaning may be extrapolated by contextual derivation. [facility] 08-09-2022 Note HNO ID: [id number] Author: RT Aj(R) Service: ? Author Type: [...] Medeiros, RT(R) August 09, 2022 2:04 PM [facility] 07-26-2022 Note HNO ID: [id number] Author: Emiliana Núñez RN Service: Care Management [...] 26, 2022 TIME: 1:04 PM CONTACT #: [id number] [facility] 07-25-2022 Note HNO ID: [id number] Author: Lucy Flores APRN.PERSONAL BANKING ASSISTANT Service: ? Author Type: Nurse Practitioner Type: [...] 4.00 k/uL Monocytes % 11.1 % Abs Bell 0.97 (H) <0.87 k/uL Eosinophils % 0.8 % Abs Eosin 0.07 <0.46 k/uL Basophils % 0.3 % Abs Baso 0.03 <0.11 k/uL Immature Granulocytes % 0.2 % Abs Immature Gran <0.03 <0.10 k/uL NRBC 0.0 /100 WBC Absolute nRBC <0.01 <0.01 k/uL Diff Type Auto CBC (more content not included)... [facility] 07-25-2022 Note HNO ID: [id number] Author: Emiliana Núñez RN Service: Care Management [...] Home Advance Directives Current Advance Directive: None Architect In Training Attempted to Assist with AD Completion: Yes [...] Be able to go home, Less pain Milligan of Choice Explained: Milligan of Choice Given: No Reason Not Given: [...] 25, 2022 TIME: 3:04 PM CONTACT #: [id number] [facility] 07-25-2022 Note HNO ID: [id number] Author: Kavitha Andrews MD Service: Anesthesiology Author [...] July 25, 2022 TIME: 8:12 AM CSN: [id number] [facility] 07-24-2022 Note HNO ID: [id number] Author: Katie Wynn MD Service: Urology Author Type: Physician Type: Plan of Care Filed: 07/24/2022 6:43 PM Note Text: I was informed about the consult 1/2 an hour ago.patient ate 2 hours ago and she does not fit the criteria for sepsis according to the notes and lactate level. Will keep NPO and insert a left ureteral stent on her tomorrow [facility] 07-24-2022 Note HNO ID: [id number] Author: Liza Rowan APRN.SD Service: Hospital Medicine [...] medications resumed. HANDP reviewed from this morning. [facility] 12-09-2021 History of Presen t illness [...] are intact. Motor: Weakness present. Comments: Decreased gluten settling tender strength both hands Psychiatric: Mood and Affect: Mood normal. Behavior: Behavior normal. Thought Content: Thought content normal. Judgment: Judgment normal. Neurological Exam Mental Status Alert. Oriented to person, place, and time. Cranial Nerves CN II: Vision test: glasses. CN III, IV, : Extraocular movements intact bilaterally. Pupils equal round and reactive to light bilaterally. Decreased gluten settling tender strength both hands. Assessment and Plan Encounter Diagnoses Name Primary? Rheumatoid arthritis involving multiple sites with positive rheumatoid factor Yes Systemic lupus erythematosus, unspecified SLE type, unspecified organ involvement status Abnormal ANCA test JACE positive Anti-cyclic citrullinated peptide antibody positive Anti-APPLICATION INTEGRATION ENGINEER antibodies present Family history of colitis Family history of gout Family history of osteoarthritis Family history of osteoporosis in mother Family history of psoriasis in mother Family history of rheumatoid arthritis Other microscopic hematuria History of osteoarthritis History of rheumatoid arthritis correction 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-steroidal anti-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 (NSAID) correction 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 systemic steroids Long-term use [...] F/U with me in 2 months 33. APPLICATION INTEGRATION ENGINEER was elevated at 1.7 34. Will try to decrease Prednisone at F/U visits 35. Repeat vit D level on or about 05/30/2022 with copy to PCP documented in this encounter [facility] 08-12-2021 History of Presen t illness [...] JACE positive Anti-cyclic citrullinated peptide antibody positive Anti-APPLICATION INTEGRATION ENGINEER antibodies present Family history of colitis Family history of gout Family history of osteoarthritis Family history of osteoporosis in mother Family history of psoriasis in mother Family history of rheumatoid arthritis History of osteoarthritis History of rheumatoid arthritis correction 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-steroidal anti-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 (NSAID) correction 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 systemic steroids Long-term use [...] months if remains low rec: eval by grisedla 25. Glucose was elevated at 111 and [...] and is now normal at 325,000 33. APPLICATION INTEGRATION ENGINEER was elevated at 1.7 34. Rx given for Prednisone 5 mg 1 pill a day 35. Will try to decrease Prednisone at F/U visits 36. Lab on or about 11/28/2021 37. F/u with me in 4 months documented in this encounter [facility] 08-12-2021 Miscellaneous Notes Addended by: MEHUL BURNS on: 08/12/2021 12:03 PM Modules accepted: Orders documented in this encounter [facility] 08-12-2021 Note Addended by: MEHUL VARGAS on: 08/12/2021 12:03 PM Modules accepted: Orders [facility] 05-13-2021 History of Presen t illness [...] Weakness present. Gait: Gait abnormal. Comments: decreased gluten settling tender strength both hands Psychiatric: Mood and Affect: Mood normal. Behavior: Behavior normal. Thought Content: Thought content normal. Judgment: Judgment normal. Neurological Exam Mental Status Alert. Oriented to person, place, and time. Cranial Nerves CN II: Vision test: glasses. CN III, IV, : Extraocular movements intact bilaterally. Pupils equal round and reactive to light bilaterally. Gait Abnormal gait. decreased gluten settling tender strength both hands. Assessment and Plan Encounter Diagnoses Name Primary? Rheumatoid arthritis involving multiple sites with positive rheumatoid factor Yes Systemic lupus erythematosus, unspecified SLE type, unspecified organ involvement status ESR raised Thrombocytosis Abnormal ANCA test JACE positive Anti-cyclic citrullinated peptide antibody positive Anti-APPLICATION INTEGRATION ENGINEER antibodies present Family history of colitis Family history of gout Family history of osteoarthritis Family history of osteoporosis in mother Family history of psoriasis in mother Family history of rheumatoid arthritis History of osteoarthritis History of rheumatoid arthritis correction 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-steroidal anti-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 (NSAID) correction 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 systemic steroids Long-term use [...] PLT count is elevated at 479,000 33. APPLICATION INTEGRATION ENGINEER is elevated at 1.7 34. X-rays back and neck 35. Lab on or about 07/30/2021 36. F/U with me in 3 months 37. Rx given for Prednisone 5 mg 2 pills a day for 1 month then 1 pill a day for 1 month then 1 pill every other day for 1 month then stop. documented in this encounter [facility] 01-28-2021 History of Presen t illness [...] RA and OA. Patient was preciously seeing Respiratory Therapy Instructor Dr. Bower in [place] for RA. Patient states she was on [...] Weakness present. Gait: Gait abnormal. 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 COMPARISON: None TECHNIQUE: Right ankle, 2 views FINDINGS: Acute fracture or bone destruction are not evident. Joint space preserved. Ankle mortise intact. Dorsal plantar calcaneal enthesopathy is noted. No ankle effusion seen. Regional soft tissues normal. IMPRESSION: 1. No acute osseous pathology. 2. Calcaneal enthesopathy. [facility] documented in this encounter [facility] SystemEvaluation note* Diagnosis Rheumatoid arthritis involving multiple sites with positive rheumatoid factor- Primary Systemic lupus erythematosus, unspecified SLE type, unspecified organ involvement status ESR raised Elevated sedimentation rate Thrombocytosis Essential thrombocythemia Abnormal ANCA test Other and unspecified nonspecific immunological findings JACE positive Other and unspecified nonspecific immunological findings Anti-cyclic citrullinated peptide antibody positive Other and unspecified nonspecific immunological findings Anti-APPLICATION INTEGRATION ENGINEER antibodies present Other and unspecified nonspecific immunological [...] of rheumatoid arthritis Personal history of arthritis terminal 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-steroidal anti-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 (NSAID) Encounter for long-term (current) use of non-steroidal anti-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 terminal 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 systemic steroids Encounter for [...] in thoracic spine documented in this encounter [facility] SystemEvaluation note* Diagnosis Rheumatoid arthritis involving multiple sites with positive rheumatoid factor Systemic lupus erythematosus, unspecified SLE type, unspecified organ involvement status ESR raised Elevated sedimentation rate Thrombocytosis Essential thrombocythemia Abnormal ANCA test Other and unspecified nonspecific immunological findings JACE positive Other and unspecified nonspecific immunological findings Anti-cyclic citrullinated peptide antibody positive Other and unspecified nonspecific immunological findings Anti-APPLICATION INTEGRATION ENGINEER antibodies present Other and unspecified nonspecific immunological [...] of rheumatoid arthritis Personal history of arthritis terminal 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-steroidal anti-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 (NSAID) Encounter for long-term (current) use of non-steroidal anti-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 correction 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 systemic steroids Encounter for [...] in thoracic spine documented in this encounter [facility] SystemEvaluation note* Diagnosis Rheumatoid arthritis involving multiple sites with positive rheumatoid factor- Primary Systemic lupus erythematosus, unspecified SLE type, unspecified organ involvement status Abnormal ANCA test Other and unspecified nonspecific immunological findings JACE positive Other and unspecified nonspecific immunological findings Anti-cyclic citrullinated peptide antibody positive Other and unspecified nonspecific immunological findings Anti-APPLICATION INTEGRATION ENGINEER antibodies present Other and unspecified nonspecific immunological [...] of rheumatoid arthritis Personal history of arthritis terminal 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-steroidal anti-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 (NSAID) Encounter for long-term (current) use of non-steroidal anti-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 correction 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 systemic steroids Encounter for [...] Pain in limb documented in this encounter [facility] SystemEvaluation note* Diagnosis Rheumatoid arthritis involving multiple sites with positive rheumatoid factor- Primary Systemic lupus erythematosus, unspecified SLE type, unspecified organ involvement status Abnormal ANCA test Other and unspecified nonspecific immunological findings JACE positive Other and unspecified nonspecific immunological findings Anti-cyclic citrullinated peptide antibody positive Other and unspecified nonspecific immunological findings Anti-APPLICATION INTEGRATION ENGINEER antibodies present Other and unspecified nonspecific immunological [...] of rheumatoid arthritis Personal history of arthritis terminal 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-steroidal anti-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 (NSAID) Encounter for long-term (current) use of non-steroidal anti-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 correction 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 systemic steroids Encounter for long-term (current) use of steroids Long-term use of high-risk medication Rheumatoid factor positive Other and unspecified nonspecific immunological findings Vitamin D deficiency Unspecified vitamin D deficiency Hyperglycemia Other abnormal glucose DDD (degenerative disc disease), cervical Degeneration of cervical intervertebral disc 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 documented in this encounter [facility] Summary Purpose Family History No Family [...] JACE positive Anti-cyclic citrullinated peptide antibody positive Anti-APPLICATION INTEGRATION ENGINEER antibodies present Family history of colitis Family history of gout Family history of osteoarthritis Family history of osteoporosis in mother Family history of psoriasis in mother Family history of rheumatoid arthritis History of osteoarthritis History of rheumatoid arthritis terminal 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 Specialty Diagnoses / Procedures Referred By Rowena dickens Referred To Contact Physical Therapy Diagnoses Rheumatoid arthritis involving multiple sites with positive rheumatoid factor Systemic lupus erythematosus, unspecified SLE type, unspecified organ involvement status ESR raised Thrombocytosis Abnormal ANCA test JACE positive Anti-cyclic citrullinated peptide antibody positive Anti-APPLICATION INTEGRATION ENGINEER antibodies present Family history of colitis Family history of gout Family history of osteoarthritis Family history of osteoporosis in mother Family history of psoriasis in mother Family history of rheumatoid arthritis History of osteoarthritis History of rheumatoid arthritis correction 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-steroidal anti-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 (NSAID) correction 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 systemic steroids Long-term use of high-risk medication Rheumatoid factor positive TSH elevation Vitamin D deficiency Hyperchloremia Hyperglycemia Hypothyroidism, unspecified type Metabolic acidosis Cervicalgia Dorsalgia Katy Esteves, Mehul Antonio, [address] [place] [address] Referral ID Status Reason Start Date Expiration Date V isits Requested Visits Authorized [id number] New Request 05/13/2021 06/07/2022 1 1 Additional Source Comments INFORMATION SOURCE (unrecogn ized section and content) DATE CREATED AUTHOR AUTHOR'S ORGANIZ ATION 02/05/2021 [facility] DATE CREATED AUTHOR AUTHOR'S ORGANIZ ATION 12/10/2021 [facility] DATE CREATED AUTHOR AUTHOR'S ORGANIZ ATION 02/06/2022 [facility] DATE CREATED AUTHOR AUTHOR'S ORGANIZ ATION 10/10/2022 [facility] DATE CREATED AUTHOR AUTHOR'S ORGANIZ ATION 10/13/2022 [facility] [email or web address] Reason for Visit (unrecogniz ed [...] Care Teams (unrecognized sec tion and content) Tourist Home Keeper Relationship Specialty Start Date End Date Cristóbal Ibarra MD [address] [place] [address] PCP - General Family Medicine 08/31/20 Tourist Home Keeper Relationship Specialty Start Date End Date Cristóbal Ibarra MD [address] [facility] [address] [place] [address] PCP - General Family Medicine 08/31/20 Tourist Home Keeper Relationship Specialty Start Date End Date Cristó[place] [address] [place] [address] [address] [place] [address] PCP - General Family Medicine 08/31/20 Tourist Home Keeper Relationship Specialty Start Date End Date Cristóbal Ibarra MD [address] [facility] [address] [place] [address] PCP - General Family Medicine 08/31/20 FOR [...] BE BASED ON THE PRIMARY CLINICAL RECORDS. [facility] [employer] provides no warranty or guarantee of the accuracy or completeness of information in this document.
== END | disposition home or self-care (01) ==
LOC: LAB 16:12
PROVIDERS: PCP Family Medicine Geriatric Medicine; Referring Provider Internal Medicine Rheumatology; Visit Provider Internal Medicine Rheumatology
DX: M05.79 Rheumatoid arthritis with rheumatoid factor of multiple sites without organ or systems involvement (principal); Z79.899 Other long term (current) drug therapy
CPT/HCPCS: 36415; 71046; 86480

== ENCOUNTER → 2023-08-02 | Outpatient (CLI) | payer BC, SELFPAY ==
[2023-08-02 12:35] LABS: Absolute Lymphocyte Count 1.67 X10^3/uL (0.83-4.51); Absolute Neutrophil Count 5.7 X10^3/uL (2.0-7.7); Basophil# 0.06 X10^3/uL; Basophil% 0.8 % (0-1); Eosinophil# 0.03 X10^3/uL; Eosinophils% 0.4 % (0-5); Hematocrit 46.6 % (37-47); Hemoglobin 15.3 g/dL (12.0-15.0); Lymphocyte # 1.67 X10^3/ul (0.83-4.51); Lymphocyte % 20.9 % (19-41); Mean Corp Hgb Conc 32.8 g/dL (32-36); Mean Corpuscular Hgb 30.5 pg (27.0-32.0); Mean Platelet Vol. 11.2 fl (6.2-12.0); Monocyte# 0.47 X10^3/uL; Monocyte% 5.9 % (0-10); NRBC Flagged by Analyzer 0 % (0-5); Neutrophil # 5.74 X10^3/uL (2.7-7.7); Neutrophil % 71.6 % (47-70); Platelet Count 276 K/mm3 (150-450); RBC Distribution Width CV 12.7 % (11.6-14.6); RBC Distribution Width SD 43.3 fl (35.1-43.9); Red Blood Count 5.01 M/mm3 (4.2-5.4)
[2023-08-02 13:35] LABS: ALB/GLOB Ratio 0.8 RATIO (0.9-2.4); AST(SGOT) 26 U/L (15-37); Alanine Aminotransfer ALT/SGPT 30 U/L (13-56); Albumin, Serum 3.4 g/dL (3.2-5.0); Alkaline Phosphatase 69 U/L (45-117); Anion Gap 6 (5-15); BUN 11 mg/dL (7-18); Calcium,Total 9.9 mg/dL (8.5-10.1); Chloride 108 mmol/L (98-107); EST Glomerular Filtration Rate 61 mL/min (>60); Est Glom Filt Rate - Afr Amer 74 mL/min (>60); Glucose 128 mg/dL (74-106); Potassium 4.1 mmol/L (3.5-5.1); Protein, Total 7.4 g/dL (6.4-8.2); Sodium Level 140 mmol/L (136-145)
== END | disposition home or self-care (01) ==
LOC: LAB 11:51
PROVIDERS: PCP Family Medicine Geriatric Medicine; Visit Provider Internal Medicine Rheumatology
DX: M05.79 Rheumatoid arthritis with rheumatoid factor of multiple sites without organ or systems involvement (principal); Z79.899 Other long term (current) drug therapy; M35.00 Sjogren syndrome, unspecified
CPT/HCPCS: 36415; 80053; 85025

== ENCOUNTER → 2023-10-04 | Outpatient (CLI) | payer BC, SELFPAY ==
[2023-10-04 11:23] LABS: Absolute Neutrophil Count 5.3 X10^3/uL (2.0-7.7); Basophil# 0.07 X10^3/uL; Basophil% 0.7 % (0-1); Eosinophil# 0.09 X10^3/uL; Eosinophils% 0.9 % (0-5); Hematocrit 45.7 % (37-47); Hemoglobin 15.1 g/dL (12.0-15.0); Lymphocyte % 39.8 % (19-41); Mean Corpuscular Hgb 30.8 pg (27.0-32.0); Mean Corpuscular Volume 93.1 fL (81-99); Mean Platelet Vol. 10.6 fl (6.2-12.0); Monocyte# 0.85 X10^3/uL; Monocyte% 8.1 % (0-10); NRBC Flagged by Analyzer 0 % (0-5); Neutrophil # 5.29 X10^3/uL (2.7-7.7); Neutrophil % 50.1 % (47-70); Platelet Count 302 K/mm3 (150-450); RBC Distribution Width CV 11.8 % (11.6-14.6); RBC Distribution Width SD 40.3 fl (35.1-43.9); Red Blood Count 4.91 M/mm3 (4.2-5.4); White Blood Count 10.5 K/mm3 (4.4-11.0)
[2023-10-04 12:06] LABS: ALB/GLOB Ratio 0.9 RATIO (0.9-2.4); AST(SGOT) 25 U/L (15-37); Alanine Aminotransfer ALT/SGPT 30 U/L (13-56); Albumin, Serum 3.3 g/dL (3.2-5.0); Alkaline Phosphatase 76 U/L (45-117); Anion Gap 4 (5-15); BUN 10 mg/dL (7-18); BUN/Creat Ratio 10.6 RATIO (10-20); Calcium,Total 9.5 mg/dL (8.5-10.1); Chloride 107 mmol/L (98-107); Creatinine, Serum 0.94 mg/dL (0.55-1.02); EST Glomerular Filtration Rate 65 mL/min (>60); Est Glom Filt Rate - Afr Amer 79 mL/min (>60); Globulin 3.5 g/dL (2.2-4.2); Glucose 79 mg/dL (74-106); Potassium 3.8 mmol/L (3.5-5.1); Protein, Total 6.8 g/dL (6.4-8.2); Sodium Level 140 mmol/L (136-145)
== END | disposition home or self-care (01) ==
LOC: POLAB3 11:12
PROVIDERS: PCP Family Medicine Geriatric Medicine; Visit Provider Family Medicine Geriatric Medicine
DX: R53.83 Other fatigue (principal)
CPT/HCPCS: 36415; 80053; 84443; 85025

== ENCOUNTER → 2023-10-10 | Outpatient (CLI) | payer BC, SELFPAY ==
--- NOTE | 2023-10-10 13:59 | BI_ITS ---
MAMMOGRAPHY - BILATERAL SCREENING REASON FOR EXAM: Female, 58 years old. Routine annual screening examination. PERTINENT HISTORY: Non-contributory. TECHNIQUE: Digital bilateral breast goyo (3D mammographic acquisition) in the CC and MLO projections. 2-D mediolateral oblique (MLO) and craniocaudad (CC) views of both breasts were obtained. CAD: Full Field Digital Mammography with Computer Added Detection was performed. COMPARISON: Comparison is made with prior abdomen examination dated September 28, 2020. FINDINGS: Breast Composition: There are scattered areas of fibroglandular density. There are no dominant masses or suspicious calcifications. No other significant abnormalities are identified. There has been no significant change since the prior study. BI/SCRN MAMM (CAD)W/GOYO BILAT IMPRESSION: Stable bilateral screening mammogram. Yearly follow-up mammogram recommended. (A) ASSESSMENT CATEGORY: BIRADS Category 1: Negative. A letter regarding these results will be sent to the patient by the facility within 30 days. Approximately 10% of breast cancers are not detected by mammography. A normal mammogram should not delay biopsy of a clinically suspicious abnormality. [id number] Electronically Signed: Markus Dubose MD at 14:39 EDT ,
== END | disposition home or self-care (01) ==
LOC: OPBI 13:58
PROVIDERS: PCP Family Medicine Geriatric Medicine; Referring Provider Family Medicine Geriatric Medicine; Visit Provider Family Medicine Geriatric Medicine
DX: Z12.31 Encounter for screening mammogram for malignant neoplasm of breast (principal)
CPT/HCPCS: 77063; 77067

== ENCOUNTER → 2023-10-27 | Outpatient (CLI) | payer BC, SELFPAY ==
[2023-10-27 15:27] LABS: Absolute Neutrophil Count 5.6 X10^3/uL (2.0-7.7); Basophil# 0.07 X10^3/uL; Basophil% 0.7 % (0-1); Eosinophil# 0.05 X10^3/uL; Eosinophils% 0.5 % (0-5); Hematocrit 45.8 % (37-47); Lymphocyte % 31.6 % (19-41); Mean Corp Hgb Conc 32.8 g/dL (32-36); Mean Corpuscular Hgb 30.4 pg (27.0-32.0); Mean Corpuscular Volume 92.9 fL (81-99); Mean Platelet Vol. 11.8 fl (6.2-12.0); Monocyte# 0.74 X10^3/uL; Monocyte% 7.8 % (0-10); NRBC Flagged by Analyzer 0 % (0-5); Neutrophil % 59.2 % (47-70); Platelet Count 287 K/mm3 (150-450); RBC Distribution Width CV 11.8 % (11.6-14.6); Red Blood Count 4.93 M/mm3 (4.2-5.4); White Blood Count 9.5 K/mm3 (4.4-11.0)
[2023-10-27 16:11] LABS: AST(SGOT) 19 U/L (15-37); Alanine Aminotransfer ALT/SGPT 21 U/L (13-56); Albumin, Serum 3.5 g/dL (3.2-5.0); Alkaline Phosphatase 66 U/L (45-117); Anion Gap 6 (5-15); BUN 11 mg/dL (7-18); Chloride 109 mmol/L (98-107); EST Glomerular Filtration Rate 61 mL/min (>60); Est Glom Filt Rate - Afr Amer 74 mL/min (>60); Globulin 3.4 g/dL (2.2-4.2); Glucose 108 mg/dL (74-106); Potassium 3.9 mmol/L (3.5-5.1); Protein, Total 6.9 g/dL (6.4-8.2); Sodium Level 140 mmol/L (136-145)
== END | disposition home or self-care (01) ==
LOC: MTLAB 12:33
PROVIDERS: PCP Family Medicine Geriatric Medicine; Referring Provider Internal Medicine Rheumatology; Visit Provider Internal Medicine Rheumatology
DX: M05.79 Rheumatoid arthritis with rheumatoid factor of multiple sites without organ or systems involvement (principal); Z79.899 Other long term (current) drug therapy; M79.7 Fibromyalgia
CPT/HCPCS: 36415; 80053; 85025

== ENCOUNTER → 2024-02-20 | Outpatient (CLI) | payer BC, SELFPAY ==
[2024-02-20 15:22] LABS: Absolute Lymphocyte Count 2.82 X10^3/uL (0.83-4.51); Absolute Neutrophil Count 6.2 X10^3/uL (2.0-7.7); Basophil# 0.07 X10^3/uL; Basophil% 0.7 % (0-1); Eosinophil# 0.04 X10^3/uL; Eosinophils% 0.4 % (0-5); Hematocrit 46.1 % (37-47); Hemoglobin 15.2 g/dL (12.0-15.0); Lymphocyte # 2.82 X10^3/ul (0.83-4.51); Lymphocyte % 28.5 % (19-41); Mean Corpuscular Volume 93.9 fL (81-99); Monocyte# 0.73 X10^3/uL; Monocyte% 7.4 % (0-10); NRBC Flagged by Analyzer 0 % (0-5); Neutrophil % 62.8 % (47-70); Platelet Count 298 K/mm3 (150-450); RBC Distribution Width SD 41.7 fl (35.1-43.9); Red Blood Count 4.91 M/mm3 (4.2-5.4); White Blood Count 9.9 K/mm3 (4.4-11.0)
[2024-02-20 19:21] LABS: AST(SGOT) 21 U/L (15-37); Alanine Aminotransfer ALT/SGPT 31 U/L (13-56); Albumin, Serum 3.6 g/dL (3.2-5.0); Alkaline Phosphatase 68 U/L (45-117); Anion Gap 4 (5-15); BUN 10 mg/dL (7-18); BUN/Creat Ratio 11.2 RATIO (10-20); Calcium,Total 9.8 mg/dL (8.5-10.1); Chloride 106 mmol/L (98-107); Creatinine, Serum 0.89 mg/dL (0.55-1.02); EST Glomerular Filtration Rate 70 mL/min (>60); Est Glom Filt Rate - Afr Amer 84 mL/min (>60); Globulin 3.7 g/dL (2.2-4.2); Glucose 94 mg/dL (74-106); Potassium 3.7 mmol/L (3.5-5.1); Protein, Total 7.3 g/dL (6.4-8.2); Sodium Level 139 mmol/L (136-145)
== END | disposition home or self-care (01) ==
LOC: MTLAB 13:16
PROVIDERS: PCP Family Medicine Geriatric Medicine; Referring Provider Internal Medicine Rheumatology; Visit Provider Internal Medicine Rheumatology
DX: M05.79 Rheumatoid arthritis with rheumatoid factor of multiple sites without organ or systems involvement (principal); Z79.899 Other long term (current) drug therapy; M35.00 Sjogren syndrome, unspecified
CPT/HCPCS: 36415; 80053; 85025

== ENCOUNTER → 2024-04-03 | Outpatient (CLI) | payer BC, SELFPAY ==
[2024-04-03 12:30] LABS: Absolute Lymphocyte Count 2.26 X10^3/uL (0.83-4.51); Absolute Neutrophil Count 4.9 X10^3/uL (2.0-7.7); Basophil# 0.07 X10^3/uL; Basophil% 0.9 % (0-1); Eosinophil# 0.03 X10^3/uL; Eosinophils% 0.4 % (0-5); Hematocrit 45.2 % (37-47); Hemoglobin 15.1 g/dL (12.0-15.0); Lymphocyte # 2.26 X10^3/ul (0.83-4.51); Lymphocyte % 28.9 % (19-41); Mean Corp Hgb Conc 33.4 g/dL (32-36); Mean Corpuscular Hgb 31.5 pg (27.0-32.0); Mean Corpuscular Volume 94.2 fL (81-99); Monocyte# 0.56 X10^3/uL; Monocyte% 7.2 % (0-10); NRBC Flagged by Analyzer 0 % (0-5); Neutrophil # 4.88 X10^3/uL (2.7-7.7); Neutrophil % 62.3 % (47-70); Platelet Count 282 K/mm3 (150-450); RBC Distribution Width CV 12.4 % (11.6-14.6); RBC Distribution Width SD 42.8 fl (35.1-43.9); White Blood Count 7.8 K/mm3 (4.4-11.0)
[2024-04-03 13:04] LABS: AST(SGOT) 24 U/L (15-37); Alanine Aminotransfer ALT/SGPT 27 U/L (13-56); Albumin, Serum 3.5 g/dL (3.2-5.0); Alkaline Phosphatase 70 U/L (45-117); Anion Gap 6 (5-15); BUN 12 mg/dL (7-18); BUN/Creat Ratio 14.9 RATIO (10-20); Calcium,Total 9.9 mg/dL (8.5-10.1); Chloride 109 mmol/L (98-107); Creatinine, Serum 0.81 mg/dL (0.55-1.02); EST Glomerular Filtration Rate 78 mL/min (>60); Est Glom Filt Rate - Afr Amer 94 mL/min (>60); Globulin 3.6 g/dL (2.2-4.2); Glucose 97 mg/dL (74-106); Protein, Total 7.1 g/dL (6.4-8.2); Sodium Level 142 mmol/L (136-145)
[2024-04-04 14:24] LABS: Vitamin D,25 Hydroxy 33.4 ng/mL
== END | disposition home or self-care (01) ==
LOC: LAB 12:03
PROVIDERS: PCP Family Medicine Geriatric Medicine; Referring Provider Family Medicine Geriatric Medicine; Visit Provider Family Medicine Geriatric Medicine
DX: R53.83 Other fatigue (principal); E55.9 Vitamin D deficiency, unspecified
CPT/HCPCS: 36415; 80053; 82306; 84443; 85025

== ENCOUNTER → 2024-04-05 | Outpatient (CLI) | payer BC, SELFPAY | END | disposition home or self-care (01) | PROVIDERS: PCP Family Medicine Geriatric Medicine; Referring Provider Family Medicine Geriatric Medicine; Visit Provider Family Medicine Geriatric Medicine | DX: E24.9 Cushing's syndrome, unspecified (principal) | CPT/HCPCS: 36415; 82533 ==

== ENCOUNTER → 2024-04-24 | Outpatient (CLI) | payer BC, SELFPAY ==
[2024-04-24 13:24] LABS: Absolute Lymphocyte Count 1.43 X10^3/uL (0.83-4.51); Absolute Neutrophil Count 4.6 X10^3/uL (2.0-7.7); Basophil# 0.06 X10^3/uL; Basophil% 0.8 % (0-1); Eosinophil# 0.07 X10^3/uL; Hematocrit 44.6 % (37-47); Hemoglobin 14.9 g/dL (12.0-15.0); Lymphocyte # 1.43 X10^3/ul (0.83-4.51); Lymphocyte % 20.2 % (19-41); Mean Corp Hgb Conc 33.4 g/dL (32-36); Mean Corpuscular Hgb 31.6 pg (27.0-32.0); Mean Corpuscular Volume 94.7 fL (81-99); Mean Platelet Vol. 11.2 fl (6.2-12.0); Monocyte% 12.7 % (0-10); NRBC Flagged by Analyzer 0 % (0-5); Neutrophil # 4.59 X10^3/uL (2.7-7.7); Platelet Count 267 K/mm3 (150-450); RBC Distribution Width SD 44.5 fl (35.1-43.9); Red Blood Count 4.71 M/mm3 (4.2-5.4); White Blood Count 7.1 K/mm3 (4.4-11.0)
[2024-04-24 13:59] LABS: ALB/GLOB Ratio 1.3 RATIO (0.9-2.4); AST(SGOT) 31 U/L (<=31); Alanine Aminotransfer ALT/SGPT 30 U/L (<=34); Albumin, Serum 4.1 g/dL (3.5-5.0); Alkaline Phosphatase 84 U/L (35-104); Anion Gap 11 (5-15); BUN 11 mg/dL (4-19); BUN/Creat Ratio 13.6 RATIO (10-20); Calcium,Total 9.9 mg/dL (7.6-11.0); Chloride 105 mmol/L (98-108); Creatinine, Serum 0.83 mg/dL (0.70-1.20); EST Glomerular Filtration Rate 82 (>60); Globulin 3.2 g/dL (2.2-4.2); Glucose 91 mg/dL (70-99); Potassium 3.9 mmol/L (3.3-5.1); Protein, Total 7.3 g/dL (5.9-8.4); Sodium Level 141 mmol/L (133-145); Total Bilirubin 0.18 mg/dL (0.00-1.30)
== END | disposition home or self-care (01) ==
PROVIDERS: PCP Family Medicine Geriatric Medicine; Referring Provider Internal Medicine Rheumatology; Visit Provider Internal Medicine Rheumatology
DX: M05.79 Rheumatoid arthritis with rheumatoid factor of multiple sites without organ or systems involvement (principal); Z79.899 Other long term (current) drug therapy; M79.7 Fibromyalgia; R68.83 Chills (without fever)
CPT/HCPCS: 36415; 80053; 85025; 87631

== ENCOUNTER → 2024-06-18 | Outpatient (CLI) | payer BC, SELFPAY ==
[2024-06-18 17:49] LABS: Absolute Lymphocyte Count 2.49 X10^3/uL (0.83-4.51); Absolute Neutrophil Count 6.7 X10^3/uL (2.0-7.7); Basophil# 0.06 X10^3/uL; Basophil% 0.6 % (0-1); Eosinophil# 0.04 X10^3/uL; Eosinophils% 0.4 % (0-5); Hematocrit 45.7 % (37-47); Hemoglobin 15.5 g/dL (12.0-15.0); Lymphocyte # 2.49 X10^3/ul (0.83-4.51); Lymphocyte % 24.5 % (19-41); Mean Corp Hgb Conc 33.9 g/dL (32-36); Mean Corpuscular Volume 94.2 fL (81-99); Mean Platelet Vol. 10.4 fl (6.2-12.0); Monocyte# 0.82 X10^3/uL; Monocyte% 8.1 % (0-10); NRBC Flagged by Analyzer 0 % (0-5); Neutrophil # 6.74 X10^3/uL (2.7-7.7); Neutrophil % 66.1 % (47-70); Platelet Count 310 K/mm3 (150-450); RBC Distribution Width CV 13.4 % (11.6-14.6); RBC Distribution Width SD 45.1 fl (35.1-43.9); Red Blood Count 4.85 M/mm3 (4.2-5.4); White Blood Count 10.2 K/mm3 (4.4-11.0)
[2024-06-18 19:05] LABS: ALB/GLOB Ratio 1.3 RATIO (0.9-2.4); AST(SGOT) 23 U/L (<=31); Alanine Aminotransfer ALT/SGPT 25 U/L (<=34); Albumin, Serum 4.1 g/dL (3.5-5.0); Alkaline Phosphatase 77 U/L (35-104); Anion Gap 12 (5-15); BUN 10 mg/dL (4-19); BUN/Creat Ratio 11.4 RATIO (10-20); Calcium,Total 10.3 mg/dL (7.6-11.0); Carbon Dioxide 25.4 mmol/L (21.0-32.0); Chloride 104 mmol/L (98-108); Creatinine, Serum 0.87 mg/dL (0.70-1.20); EST Glomerular Filtration Rate 78 (>60); Globulin 3.2 g/dL (2.2-4.2); Glucose 99 mg/dL (70-99); Potassium 4.1 mmol/L (3.3-5.1); Protein, Total 7.4 g/dL (5.9-8.4); Sodium Level 141 mmol/L (133-145); Total Bilirubin 0.35 mg/dL (0.00-1.30)
== END | disposition home or self-care (01) ==
LOC: MTLAB 13:51
PROVIDERS: PCP Family Medicine Geriatric Medicine; Referring Provider Internal Medicine Rheumatology; Visit Provider Internal Medicine Rheumatology
DX: M05.79 Rheumatoid arthritis with rheumatoid factor of multiple sites without organ or systems involvement (principal); Z79.899 Other long term (current) drug therapy; M79.7 Fibromyalgia
CPT/HCPCS: 36415; 80053; 85025

== ENCOUNTER → 2024-10-04 | Outpatient (CLI) | payer BC, SELFPAY ==
[2024-10-04 10:15] LABS: Hematocrit 46.3 % (37-47); Hemoglobin 15.4 g/dL (12.0-15.0); Immature Granulocytes Count 0.030 X10^3/uL (0.0-0.0); Mean Corp Hgb Conc 33.3 g/dL (32-36); Mean Corpuscular Volume 98.5 fL (81-99); Mean Platelet Vol. 10.9 fl (6.2-12.0); NRBC Flagged by Analyzer 0 % (0-5); Platelet Count 327 K/mm3 (150-450); RBC Distribution Width CV 12.7 % (11.6-14.6); RBC Distribution Width SD 45.2 fl (35.1-43.9); Red Blood Count 4.70 M/mm3 (4.2-5.4); White Blood Count 10.1 K/mm3 (4.4-11.0)
[2024-10-04 11:06] LABS: AST(SGOT) 55 U/L (<=31); Alanine Aminotransfer ALT/SGPT 47 U/L (<=34); Albumin, Serum 4.0 g/dL (3.5-5.0); Alkaline Phosphatase 73 U/L (35-104); Anion Gap 9 (5-15); BUN 11 mg/dL (4-19); BUN/Creat Ratio 12.0 RATIO (10-20); Calcium,Total 10.3 mg/dL (7.6-11.0); Carbon Dioxide 27.8 mmol/L (21.0-32.0); Chloride 104 mmol/L (98-108); Globulin 3.1 g/dL (2.2-4.2); Glucose 84 mg/dL (70-99); Potassium 4.9 mmol/L (3.3-5.1)
[2024-10-04 17:49] LABS: Xtra Tube Kwok EXTRA TUBE
== END | disposition home or self-care (01) ==
LOC: POLAB3 09:49
PROVIDERS: PCP Family Medicine Geriatric Medicine; Visit Provider Family Medicine Geriatric Medicine
DX: E03.9 Hypothyroidism, unspecified (principal); R53.83 Other fatigue
CPT/HCPCS: 36415; 80053; 84443; 85025

== ENCOUNTER → 2024-10-09 | Outpatient (CLI) | payer BC, SELFPAY ==
--- NOTE | 2024-10-09 11:28 | CT_ITS ---
PROCEDURE: EXTREMITY LOWER WITHOUT CONTRA 10/09/2024 REASON FOR EXAM: R AKNLE PAIN TECHNIQUE: EXTREMITY LOWER WITHOUT CONTRA Coronal and Sagittal reconstruction series were provided. CONTRAST: None One or more dose reduction techniques were used (e.g., Automated exposure control, adjustment of the mA and/or kV according to patient size, use of iterative reconstruction technique). RADIATION DOSE SUMMARY: CTDlvol: 15.35 mGy DLP: 334.57 mGycm COMPARISON: None FINDINGS: There is an acute, nondisplaced fracture of the distal lateral malleolus with associated soft tissue swelling and joint effusion. No demonstrated fracture in the distal tibia, or talus. No demonstrated calcaneal fracture there are calcaneal spurs noted. Mild intertarsal arthrosis, no demonstrated tarsal fracture CT/Extremity Lower without Contra IMPRESSION: Acute nondisplaced fracture in the distal lateral malleolus with soft tissue sw elling and joint effusion No other demonstrated fracture Calcaneal spurs Intertarsal arthrosis Reading Location: [id number]
== END | disposition home or self-care (01) ==
LOC: CT 11:27
PROVIDERS: PCP Family Medicine Geriatric Medicine; Referring Provider Family Medicine Geriatric Medicine; Visit Provider Family Medicine Geriatric Medicine
DX: M25.571 Pain in right ankle and joints of right foot (principal); M25.471 Effusion, right ankle
CPT/HCPCS: 73700

== ENCOUNTER → 2024-10-21 | Outpatient (CLI) | payer BC, SELFPAY ==
--- NOTE | 2024-10-21 08:18 | US_ITS ---
PROCEDURE: ABD LIMITED W/ ELASTOGRAPHY REASON FOR EXAM: FATTY LIVER COMPARISON: Prior study dated February 11, 2023. TECHNIQUE: Procedure Code: [id number] Modality: US Procedure: ABD LIMITED W/ ELASTOGRAPHY Right upper quadrant abdominal ultrasound. Startupeando ElastQ Imaging shear wave elastography for non-invasive assessment of liver tissue stiffness. Namita EPIQ Elite. FINDINGS: LIVER: Size: Unremarkable Length: 15.8 cm Echotexture: Normal Contour: Normal Lesions: None identified Elastography: EQI Med: 5.6 kPa EQI Med Ruddy: 1.37 m/s IQR/Med: 21 %* GALLBLADDER: No stones sludge wall thickening or tenderness. COMMON BILE DUCT: Normal measuring 4 mm. . PANCREAS: Normal Visualized portions of the right kidney are unremarkable. No right upper quadrant ascites. US/ABD Limited w/ Elastography IMPRESSION: NO TO MILD HEPATIC FIBROSIS Reference Values: SRU <1.37 m/s (5.7kPa): No to mild fibrosis 1.37 m/s - 2.2 m/s: Moderate to severe fibrosis >2.2 m/s (15kPa): Significant fibrosis / cirrhosis METAVIR Score F2 or higher: 1.34 m/s (5.7kPa) F3 or higher: 1.55 m/s (7.3kPa) F4: 1.80 m/s (10kPa) * If the IQR/Med is >30%, the variance in the measurements is a large and the a ccuracy of the measurement may be in question. Reading Location: [facility]
== END | disposition home or self-care (01) ==
PROVIDERS: PCP Family Medicine Geriatric Medicine; Referring Provider Family Medicine Geriatric Medicine; Visit Provider Family Medicine Geriatric Medicine
DX: K76.0 Fatty (change of) liver, not elsewhere classified (principal)
CPT/HCPCS: 76705; 76981

== ENCOUNTER → 2024-12-18 | Outpatient (CLI) | payer BC, SELFPAY ==
[2024-12-18 12:37] LABS: Hematocrit 43.9 % (37-47); Hemoglobin 14.9 g/dL (12.0-15.0); Immature Granulocytes Count 0.050 X10^3/uL (0.0-0.0); Mean Corp Hgb Conc 33.9 g/dL (32-36); Mean Corpuscular Volume 95.4 fL (81-99); Mean Platelet Vol. 11.2 fl (6.2-12.0); NRBC Flagged by Analyzer 0 % (0-5); Platelet Count 333 K/mm3 (150-450); RBC Distribution Width CV 13.1 % (11.6-14.6); RBC Distribution Width SD 45.1 fl (35.1-43.9); Red Blood Count 4.60 M/mm3 (4.2-5.4); White Blood Count 9.5 K/mm3 (4.4-11.0)
[2024-12-18 12:55] LABS: AST(SGOT) 25 U/L (<=31); Alanine Aminotransfer ALT/SGPT 25 U/L (<=34); Albumin, Serum 3.9 g/dL (3.5-5.0); Alkaline Phosphatase 71 U/L (35-104); Anion Gap 11 (5-15); BUN 7 mg/dL (4-19); BUN/Creat Ratio 8.1 RATIO (10-20); Calcium,Total 9.7 mg/dL (7.6-11.0); Carbon Dioxide 24.1 mmol/L (21.0-32.0); Chloride 106 mmol/L (98-108); Globulin 2.8 g/dL (2.2-4.2); Glucose 92 mg/dL (70-99); Potassium 4.2 mmol/L (3.3-5.1)
== END | disposition home or self-care (01) ==
LOC: MTLAB 09:50
PROVIDERS: PCP Family Medicine Geriatric Medicine; Referring Provider Internal Medicine Rheumatology; Visit Provider Internal Medicine Rheumatology
DX: M05.79 Rheumatoid arthritis with rheumatoid factor of multiple sites without organ or systems involvement (principal); Z79.899 Other long term (current) drug therapy
CPT/HCPCS: 36415; 80053; 85025